=== PATIENT | male | born 1940 | race Caucasian/White ===

== ENCOUNTER 2019-06-24 10:01 | Inpatient (IN) | payer MEDICARE ==
--- NOTE | 2019-06-24 10:30 | ER Document Report ---
ED General - General Stated Complaint: WEAKNESS Time Seen by Provider: 06/24/19 10:06 Primary Care Provider: PADMINI MAYS MD [Primary Care Provider] - Follow up as needed Information source: Patient, Relative Notes: HPI: 79-year-old male on Coumadin who supposedly got up to use the bathroom around 1 AM this morning and had an unwitnessed fall. Supposedly when the patient woke up he was having some difficulty ambulating and responding a little less than baseline. Possibly slurred speech. No focal one-sided weakness or numbness. Patient himself denies any pain. Patient is on Coumadin secondary to atrial fibrillation. Family is unsure of the primary care physician or other medications. ROS: See HPI All other review of systems reviewed and otherwise negative Reviewed vital signs and nursing note as charted by RN. PHYSICAL EXAM: CONSTITUTIONAL: Alert; answers slowly but does not know the year, the month, and the president. Family states that he has not mentating in his normal speed HEAD: Normocephalic; atraumatic EYES: PERRL; full extraocular range of motion; conjunctivae clear, sclerae non- icteric ENT: Normal nose; no rhinorrhea; moist mucous membranes; pharynx without lesions noted NECK: Supple without meningismus; no carotid bruit; non-tender CARD: Irregularly irregular; no murmurs; symmetric distal pulses RESP: Normal chest excursion without splinting or tachypnea; breath sounds clear and equal bilaterally; no tenderness to anterior posterior chest wall palpation; no wheezes, no rhonchi, no rales ABD/GI: Normal bowel sounds; non-distended; soft, non-tender; no palpable o rganomegaly or masses BACK: The back appears normal and is non-tender to palpation EXT: Normal ROM in all joints; small abrasion/laceration to the dorsal aspect of the right forearm with some mild swelling. No tenderness to the hand, wrist, elbow, or humerus SKIN: No acute lesions noted NEURO: CN 2-12 intact; 5/5 bilateral upper extremity strength; patient appears to have 3 out of 5 strength to the right lower extremity with 5 out of 5 strength to the left lower extremity; VAN negative - Related Data Allergies/Adverse Reactions: No Known Drug Allergies Allergy (Mild, Verified 01/29/13 10:23) Past Medical History - Social History Smoking Status: Unknown if Ever Smoked Family History: Reviewed & Not Pertinent - Past Medical History Cardiac Medical History: Reports: Hx Hypertension Denies: Hx Coronary Artery Disease Pulmonary Medical History: Denies: Hx Asthma, Hx Bronchitis, Hx COPD, Hx Pneumonia Neurological Medical History: Denies: Hx Cerebrovascular Accident, Hx Seizures Musculoskeletal Medical History: Denies Hx Arthritis - Immunizations Hx Diphtheria, Pertussis, Tetanus Vaccination: Yes Course - Re-evaluation Re-evalutation: 06/24/19 10:29 Given the history and physical examination, on Coumadin, patient was expedited directly to CT scan of the head and cervical spine. EKG, laboratory work, coagulation profile, have been sent. Van score is negative. Onset of symptomatology last known well at around 1 AM. I do not believe that the patient is a TPA candidate for multiple reasons including anticoagulation and the time course of illness. I do not believe CTA of the head and neck are appropriate given the VAN negative state. 06/24/19 10:35 CT scan of the head shows no obvious acute bleed. 06/24/19 10:45 EKG shows heart of 96, atrial fibrillation, left axis deviation, LVH, no ST elevation or depression 06/24/19 12:07 Labs otherwise as recorded. No change in exam. We cleaned and dressed the cathy ent's right forearm. No laceration present. No fracture of the forearm. Patient will be admitted to the hospitalist service. I have ordered an MRI at the hospitalist request. - Laboratory Result Diagrams: 06/24/19 10:20 06/24/19 10:20 Laboratory results interpreted by me: 06/24/19 06/24/19 06/24/19 10:20 10:20 10:20 Hgb 11.7 L Hct 36.4 L MCV 76 L MCH 24.3 L RDW 16.2 H Plt Count 148 L Seg Neuts % (Manual) 94 H Lymphocytes % (Manual) 4 L Monocytes % (Manual) 2 L Abs Lymphs (Manual) 0.3 L PT 28.7 H Glucose 118 H Discharge - Discharge Clinical Impression: Right leg weakness Altered mental status, unspecified Qualifiers: Altered mental status type: unspecified Qualified Code(s): R41.82 - Altered mental status, unspecified Accidental fall Qualifiers: Encounter type: initial encounter Qualified Code(s): W19.XXXA - Unspecified f all, initial encounter Condition: Fair Disposition: ADMITTED OBSERVATION Admitting Provider: Jones (Hospitalist) Unit Admitted: Telemetry Referrals: PADMINI MAYS MD [Primary Care Provider] - Follow up as needed
--- NOTE | 2019-06-24 10:33 | RADIOLOGY REPORT (SQ) ---
EXAM DESCRIPTION: CT HEAD WITHOUT COMPLETED DATE/TIME: 06/24/2019 10:24 am REASON FOR STUDY: 8; fall on blood thinners COMPARISON: None. TECHNIQUE: Axial images acquired through the brain without intravenous contrast. Images reviewed wi th bone, brain and subdural windows. Additional sagittal and coronal reconstructions were generated. Images stored on PACS. All CT scanners at this facility use dose modulation, iterative reconstruction, and/or weight based d osing when appropriate to reduce radiation dose to as low as reasonably achievable (ALARA). [facility]: Dose Right [facility]: CareDose [facility]: Dose Right [facility]: Teradose 4D [facility]: Smart Mobii RADIATION DOSE: CT Rad equipment meets quality standard of care and radiation dose reduction techniq ues were employed. CTDIvol: 53.2 mGy. DLP: 1044 mGy-cm.mGy. LIMITATIONS: None. FINDINGS: VENTRICLES: Prominent. CEREBRUM: No masses. No hemorrhage. No midline shift. Areas of low density in the white matter mos t likely due to chronic micro-vascular ischemic change. No evidence for acute infarction. CEREBELLUM: No masses. No hemorrhage. No alteration of density. No evidence for acute infarction. EXTRAAXIAL SPACES: Age-related involutional change. No fluid collections. No masses. ORBITS AND GLOBE: No intra- or extraconal masses. Normal contour of globe without masses. CALVARIUM: No fracture. PARANASAL SINUSES: No fluid or mucosal thickening. SOFT TISSUES: No mass or hematoma. OTHER: No other significant finding. IMPRESSION: CHRONIC CHANGES OF ATROPHY AND MICROVASCULAR ISCHEMIA. NO ACUTE PROCESS. EVIDENCE OF ACUTE STROKE: NO. TECHNICAL DOCUMENTATION: JOB ID: [id number] Quality ID # [id number]: Final reports with documentation of one or more dose reduction techniques (e.g., Au tomated exposure control, adjustment of the mA and/or kV according to patient size, use of iterative reconstruction technique) 2010 [employer]- All Rights Reserved Reading location - IP/workstation name: [email or web address]
--- NOTE | 2019-06-24 10:35 | RADIOLOGY REPORT (SQ) ---
EXAM DESCRIPTION: CT CERVICAL SPINE WITHOUT COMPLETED DATE/TIME: 06/24/2019 10:24 am REASON FOR STUDY: 8; fall COMPARISON: None. TECHNIQUE: Axial images acquired through the cervical spine without intravenous contrast. Images re viewed with lung, soft tissue and bone windows. Reconstructed coronal and sagittal MPR images review ed. Images stored on PACS. All CT scanners at this facility use dose modulation, iterative reconstruction, and/or weight based d osing when appropriate to reduce radiation dose to as low as reasonably achievable (ALARA). [facility]: Dose Right [facility]: CareDose [facility]: Dose Right [facility]: Teradose 4D [facility]: Smart VBOX RADIATION DOSE: CT Rad equipment meets quality standard of care and radiation dose reduction techniq ues were employed. CTDIvol: 19.4 mGy. DLP: 384 mGy-cm. mGy. LIMITATIONS: None. FINDINGS: ALIGNMENT: Anatomic. MINERALIZATION: Normal. VERTEBRAL BODIES: No fractures or dislocation. DISCS: Multilevel disc space narrowing with osteophytes. FACETS, LATERAL MASSES, POSTERIOR ELEMENTS: Facet arthropathy. No fractures. No dislocation. No ac [place]ark[place] findings. HARDWARE: None in the spine. VISUALIZED RIBS: No fractures. LUNG APICES AND SOFT TISSUES: No significant or acute findings. OTHER: No other significant finding. IMPRESSION: CHRONIC DEGENERATIVE CHANGES. NO ACUTE FINDINGS. TECHNICAL DOCUMENTATION: JOB ID: [id number] Quality ID # [id number]: Final reports with documentation of one or more dose reduction techniques (e.g., Au tomated exposure control, adjustment of the mA and/or kV according to patient size, use of iterative reconstruction technique) 2010 [employer]- All Rights Reserved Reading location - IP/workstation name: [email or web address]
[2019-06-24 10:43] LABS: HEMATOCRIT 36.4 % (37.9-51.0); HEMOGLOBIN 11.7 g/dL (13.5-17.0); MEAN CORPUSCULAR HEMOGLOBIN 24.3 pg (27.0-33.4); MEAN CORPUSCULAR HGB CONC 32.2 g/dL (32.0-36.0); MEAN CORPUSCULAR VOLUME 76 fl (80-97); PLATELET COUNT 148 10^3/uL (150-450); RED BLOOD COUNT 4.82 10^6/uL (4.35-5.55); RED CELL DISTRIBUTION WIDTH 16.2 % (11.5-14.0); WHITE BLOOD COUNT 8.7 10^3/uL (4.0-10.5)
[2019-06-24 10:58] LABS: ALANINE AMINOTRANSFERASE 28 U/L (21-72); ALBUMIN 4.3 g/dL (3.5-5.0); ALKALINE PHOSPHATASE 63 U/L (38-126); ANION GAP 8 (5-19); ASPARTATE AMINO TRANSFERASE 38 U/L (17-59); BILIRUBIN,DIRECT 0.2 mg/dL (0.0-0.4); BILIRUBIN,TOTAL 0.8 mg/dL (0.2-1.3); BLOOD UREA NITROGEN 14 mg/dL (7-20); CALCIUM 9.3 mg/dL (8.4-10.2); CARBON DIOXIDE 30 mmol/L (22-30); CHLORIDE 102 mmol/L (98-107); GLUCOSE 118 mg/dL (75-110); POTASSIUM 4.1 mmol/L (3.6-5.0); TOTAL PROTEIN 6.9 g/dL (6.3-8.2)
[2019-06-24 11:04] LABS: ABSOLUTE LYMPHOCYTES# (MANUAL) 0.3 10^3/uL (0.5-4.7); ABSOLUTE MONOCYTES # (MANUAL) 0.2 10^3/uL (0.1-1.4); BASOPHILS % (MANUAL) 0 % (0-2); EOSINOPHILS % (MANUAL) 0 % (0-6); LYMPHOCYTES % (MANUAL) 4 % (13-45); MONOCYTES % (MANUAL) 2 % (3-13); SEGMENTED NEUTROPHILS % (MAN) 94 % (42-78); TOTAL CELLS COUNTED 100
[2019-06-24 11:05] LABS: ANISOCYTOSIS 1+; HYPOCHROMASIA 1+; OVALOCYTES 1+; PLATELET COMMENT DECREASED; POIKILOCYTOSIS 1+
[2019-06-24 11:21] LABS: INTERNATIONAL RATION (INR) 2.64; PROTHROMBIN TIME 28.7 SEC (11.4-15.4)
[2019-06-24] MEDS ORDERED: DIPH/PERTUSS(ACELL)/TETANUS VAC/PF 0.5 ML SYR (>=10YO) IM ONE (11:24)
--- NOTE | 2019-06-24 11:53 | RADIOLOGY REPORT (SQ) ---
EXAM DESCRIPTION: FOREARM RIGHT COMPLETED DATE/TIME: 06/24/2019 11:42 am REASON FOR STUDY: 8;Fall; right arm pain COMPARISON: None. NUMBER OF VIEWS: Two views. TECHNIQUE: Two radiographic images acquired of the right forearm, including elbow and wrist in at le ast one projection. LIMITATIONS: None. FINDINGS: MINERALIZATION: Osteopenia. BONES: No mid forearm fracture. There is a possible nondisplaced fracture of the distal radius. SOFT TISSUES: No obvious swelling or foreign body. OTHER: No other significant finding. IMPRESSION: Possible nondisplaced fracture of the distal radius. Consider radiographs of the wrist. TECHNICAL DOCUMENTATION: JOB ID: [id number] [employer]- All Rights Reserved Reading location - IP/workstation name: [email or web address]
[2019-06-24] MEDS ORDERED: ACETAMINOPHEN 325 MG TABLET PO PRN (12:55)
[2019-06-24] MEDS ORDERED: ONDANSETRON HCL INJ/PF 4 MG/2 ML SDV IV PRN (12:55)
--- NOTE | 2019-06-24 13:15 | RADIOLOGY REPORT (SQ) ---
EXAM DESCRIPTION: WRIST RIGHT 3 VIEWS COMPLETED DATE/TIME: 06/24/2019 1:04 pm REASON FOR STUDY: 8; fall COMPARISON: None. NUMBER OF VIEWS: Three views. TECHNIQUE: AP, lateral, and oblique radiographic images acquired of the right wrist. LIMITATIONS: None. FINDINGS: MINERALIZATION: Normal. BONES: Marked degenerative change at the 1st carpal metacarpal joint and degenerative change at the 1 st radiocarpal joint. Otherwise, no acute fracture or bony abnormality identified. SOFT TISSUES: No soft tissue swelling. No foreign body. OTHER: Vascular calcification. IMPRESSION: Degenerative arthritis of the right wrist. TECHNICAL DOCUMENTATION: JOB ID: [id number] SC-69 2010 [employer]- All Rights Reserved Reading location - IP/workstation name: [email or web address]
--- NOTE | 2019-06-24 13:30 | PDOC H&P ---
History of Present Illness Admission Date/PCP: 06/24/19 12:42 PADMINI MAYS Patient complains of: History of fall with altered mental status History of Present Illness: WILLIAMS COX is a 79 year old male with history of atrial fibrillation on Coumadin, hypertension brought in by EMS with history of fall at home. As per the family members patient was found on the floor around 7:30 AM. Family members did not know how long he is on the floor. Patient is alert and awake at that time. But unable to stand up. EMS was called. Initially in the ER he is okay but later on he was getting more confused and agitated unable to give his data but unable to give his name unable to tell the location. Work-up was done INR is 2.6, CT head was negative for acute changes. Found to have questionable nondisplaced right distal radius fracture was found on initial x-rays follow-up x-ray of the right wrist shows no fractures. Patient is full code. Family is okay for the patient to stay in the hospital for further management. Past Medical History Cardiac Medical History: Reports: Hypertension Denies: Coronary Artery Disease Pulmonary Medical History: Denies: Asthma, Bronchitis, Chronic Obstructive Pulmonary Disease (COPD), Pneumonia Neurological Medical History: Denies: Seizures Musculoskeltal Medical History: Denies: Arthritis Hematology: Denies: Anemia Past Surgical History Past Surgical History: Reports: Other - Hernia repair Social History Smoking Status: Unknown if Ever Smoked - Advance Directive Resuscitation Status: Full Code Surrogate healthcare decision maker:: Patient's son has the power of vmware consultant. Family History Family History: Reviewed & Not Pertinent Parental Family History Reviewed: Yes - Other with her history of cancer unknown. Children Family History Reviewed: Yes Sibling(s) Family History Reviewed.: Yes Medication/Allergy Home Medications: Atenolol [Tenormin 50 Mg Tablet] 50 mg PO DAILY 01/29/13 Digoxin [Lanoxin 0.25 Mg Tablet] 0.25 mg PO DAILY 01/29/13 Ezetimibe/Simvastatin [Vytorin 10-40 Mg Tablet] 1 each PO DAILY 01/29/13 Furosemide [Lasix 40 mg Tablet] 40 mg PO QAM 01/29/13 Lisinopril [Prinivil 20 mg Tablet] 20 mg PO DAILY 01/29/13 Potassium Chloride 10 meq PO DAILY 01/29/13 Warfarin Sodium [Coumadin 5 Mg Tablet] 5 mg PO 01/29/13 Warfarin Sodium [Coumadin 7.5 mg Tablet] 7.5 mg PO 01/29/13 Allergies/Adverse Reactions: No Known Drug Allergies Allergy (Mild, Verified 01/29/13 10:23) Review of Systems Constitutional: ABSENT: fever(s), headache(s) Ears: ABSENT: other Cardiovascular: ABSENT: chest pain, dyspnea on exertion, edema, orthropnea, palpitations Respiratory: ABSENT: cough, hemoptysis Gastrointestinal: ABSENT: abdominal pain, constipation, diarrhea, hematemesis, hematochezia, nausea, vomiting Neurological: PRESENT: confusion, weakness Psychiatric: ABSENT: anxiety, depression, homidical ideation, suicidal ideation Hematologic/Lymphatic: ABSENT: easy bleeding, easy bruising Physical Exam General appearance: PRESENT: no acute distress, cooperative Head exam: PRESENT: atraumatic Eye exam: PRESENT: PERRLA Mouth exam: PRESENT: moist, tongue midline Teeth exam: PRESENT: poor dentation Neck exam: ABSENT: carotid bruit, JVD, lymphadenopathy, thyromegaly Respiratory exam: PRESENT: decreased breath sounds Cardiovascular exam: PRESENT: irregular rhythm, tachycardia GI/Abdominal exam: PRESENT: normal bowel sounds, soft. ABSENT: distended, guarding, mass, organolmegaly, rebound, tenderness Rectal exam: PRESENT: deferred Extremities exam: PRESENT: full ROM. ABSENT: calf tenderness, clubbing, pedal edema Neurological exam: PRESENT: alert, awake, oriented to person, oriented to place, oriented to time, oriented to situation, CN II-XII grossly intact. ABSENT: motor sensory deficit Psychiatric exam: PRESENT: appropriate affect, normal mood. ABSENT: homicidal ideation, suicidal ideation Results Laboratory Results: 06/24/19 10:20 06/24/19 10:20 06/24/19 06/24/19 10:20 10:20 WBC 8.7 RBC 4.82 Hgb 11.7 L Hct 36.4 L MCV 76 L MCH 24.3 L MCHC 32.2 RDW 16.2 H Plt Count 148 L Seg Neutrophils % Not Reportable Lymphocytes % Not Reportable Monocytes % Not Reportable Eosinophils % Not Reportable Basophils % Not Reportable Absolute Neutrophils Not Reportable Absolute Lymphocytes Not Reportable Absolute Monocytes Not Reportable Absolute Eosinophils Not Reportable Absolute Basophils Not Reportable Sodium 140.3 Potassium 4.1 Chloride 102 Carbon Dioxide 30 Anion Gap 8 BUN 14 Creatinine 0.85 Est GFR ( Amer) > 60 Est GFR (Non-Af Amer) > 60 Glucose 118 H Calcium 9.3 Total Bilirubin 0.8 AST 38 ALT 28 Alkaline Phosphatase 63 Total Protein 6.9 Albumin 4.3 06/24/19 10:20 Troponin I 0.084 Impressions: Cervical Spine CT 06/24/19 10:07 IMPRESSION: CHRONIC DEGENERATIVE CHANGES. NO ACUTE FINDINGS. Head CT 06/24/19 10:07 IMPRESSION: CHRONIC CHANGES OF ATROPHY AND MICROVASCULAR ISCHEMIA. NO ACUTE PROCESS. EVIDENCE OF ACUTE STROKE: NO. Forearm X-Ray 06/24/19 11:24 IMPRESSION: Possible nondisplaced fracture of the distal radius. Consider radiographs of the wrist. Wrist X-Ray 06/24/19 12:23 IMPRESSION: Degenerative arthritis of the right wrist. Assessment and Plan - Diagnosis (1) Altered mental status, unspecified Qualifiers: Altered mental status type: unspecified Qualified Code(s): R41.82 - Altered mental status, unspecified Is this a current diagnosis for this admission?: Yes Plan: 06/24/[id number]-old male admitted for altered mental status and a fall possible stroke. Is going to be [facility] stroke core measures core measures implemented. Aspiration fall seizure precautions are requested. Swallowing evaluation will be done. CT head was negative for acute changes. CT of the neck and head and MRI of the brain is going to be requested. GI prophylaxis started. Patient is on Coumadin at home INR is 2.6 which was resumed during this hospital stay. PT consult OT consult is going to be requested. (2) Accidental fall Qualifiers: Encounter type: initial encounter Qualified Code(s): W19.XXXA - Unspecified fall, initial encounter Is this a current diagnosis for this admission?: Yes Plan: 06/24/2019-patient admitted with fall. And is unable to tell exactly what happened. We are going to do the CK levels to see any rhabdomyolysis. CT head was negative. On x-ray is questionable broken distal right radius. Follow-up right wrist x-rays did not show any fracture. (3) HTN (hypertension) Is this a current diagnosis for this admission?: No Plan: 06/24/2019-patient came in with hypertensive urgency. With elevated blood pressures blood pressure is more than 180. Started on IV hydralazine 10 mg every 4 PRN for systolic blood pressure more than 160 and continue the lisinopril. (4) Atrial fibrillation Is this a current diagnosis for this admission?: No Plan: 06/24/2019-patient has history of paroxysmal atrial fibrillation on digoxin and Coumadin he is still in atrial fibrillation with rate controlled. Plan is to continue the home medications. - Time Time Spent with patient: 25-34 minutes Medications reviewed and adjusted accordingly: Yes Anticipated discharge: SNF
[2019-06-24 13:38] LABS: PROTHROMBIN TIME 24.8 SEC (11.4-15.4)
[2019-06-24 13:56] LABS: DIGOXIN 1.25 ng/mL (0.8-2.0)
[2019-06-24 14:05] LABS: CREATINE KINASE MB 3.5 ng/mL (<4.55)
[2019-06-24 14:10] LABS: TROPONIN I 0.122 ng/mL
--- NOTE | 2019-06-24 14:19 | RADIOLOGY REPORT (SQ) ---
EXAM DESCRIPTION: MRI HEAD WITHOUT COMPLETED DATE/TIME: 06/24/2019 2:06 pm REASON FOR STUDY: 8; CVA? COMPARISON: CT scan same date TECHNIQUE: Multiplanar imaging includes non-contrasted T1, T2, FLAIR, and diffusion with ADC map seq uences. Images stored on PACS. LIMITATIONS: None. FINDINGS: ANATOMY: No anomalies. Normal vascular flow voids. Pituitary fossa normal. CSF SPACES: Atrophy induced prominence of ventricles and CSF spaces. CEREBRUM: High signal intensity lesions scattered throughout the white matter on FLAIR imaging with d istribution suggesting micro-vascular ischemic changes. No evidence of hemorrhage, mass, or extraaxi al fluid collection. POSTERIOR FOSSA: No signal alteration. No hemorrhage. No edema, masses or mass effect. Internal redd tory canals, cerebello-pontine angles, mastoids normal. DIFFUSION IMAGING: Positive for restricted diffusion in the internal capsule on the left. ORBITS: No masses. Globes normal. PARANASAL SINUSES: No fluid levels. Mucosa normal. OTHER: No other significant finding. IMPRESSION: ATROPHY AND CHRONIC MICRO-VASCULAR ISCHEMIC CHANGES. Positive for restricted diffusion internal capsule on the left. Acute infarction. EVIDENCE OF ACUTE STROKE: YES. LEFT MCA. COMMENT: The findings were sent to the Radiology Results Communication Center at 14:13 on 06/24/2019 to be communicated to a licensed caregiver. TECHNICAL DOCUMENTATION: JOB ID: [id number] [employer]- All Rights Reserved Reading location - IP/workstation name: [email or web address]
--- NOTE | 2019-06-24 14:58 | RADIOLOGY REPORT (SQ) ---
EXAM DESCRIPTION: CTA NECK COMPLETED DATE/TIME: 06/24/2019 2:41 pm REASON FOR STUDY: stroke COMPARISON: None. TECHNIQUE: Axial dynamic scanning technique with dynamic contrast enhancement through the extra-aircraft engine dismantler nial carotid and vertebral arteries. Multiplanar reconstruction. 3-D MIPS and Volume-rendered imag es acquired at the workstation and saved to PACS. Images are reviewed in soft tissue, bone, lung w indows. All CT scanners at this facility use dose modulation, iterative reconstruction, and/or weight based d osing when appropriate to reduce radiation dose to as low as reasonably achievable (ALARA). [facility]: Dose Right [facility]: CareDose [facility]: Dose Right [facility]: Teradose 4D [facility]: [place] CONTRAST TYPE AND DOSE: contrast/concentration: Isovue 350.00 mg/ml; Total Contrast Delivered: 70.0 ml; Total Saline Delivered: 75.0 ml RENAL FUNCTION: GFR > 60. LIMITATIONS: None. FINDINGS: AORTIC ARCH: Normal three-vessel origin. Bilateral subclavian arteries are patent. No d issection. RIGHT CAROTIDS: Patent common, internal and external carotid arteries without suggestion of significa nt stenosis or irregular plaque. Mild calcification. No dissection. RIGHT VERTEBRAL: Patent. No dissection. LEFT CAROTIDS: Patent common, internal and external carotid arteries without suggestion of significan t stenosis or irregular plaque. Mild calcification. No dissection. LEFT VERTEBRAL: Patent. No dissection. OTHER: No other significant finding. OTHER: 3-D reconstructions confirm findings. IMPRESSION: No evidence of carotid artery stenosis or dissection. COMMENT: Quality ID #[id number]: Measurements of distal internal carotid diameter were used as the denomina tor for stenosis measurement. TECHNICAL DOCUMENTATION: JOB ID: [id number] Quality ID # 436: Final reports with documentation of one or more dose reduction techniques (e.g., Au tomated exposure control, adjustment of the mA and/or kV according to patient size, use of iterative reconstruction technique) 2010 [employer]- All Rights Reserved Reading location - IP/workstation name: [email or web address]
--- NOTE | 2019-06-24 15:07 | RADIOLOGY REPORT (SQ) ---
EXAM DESCRIPTION: CTA HEAD COMPLETED DATE/TIME: 06/24/2019 2:41 pm REASON FOR STUDY: stroke COMPARISON: None. TECHNIQUE: Post IV contrast scanning, thin section axial imaging through the brain to evaluate the a rterial structures. Source and MIP images are saved and reviewed on PACS. Advanced 3D imaging as volume-rendering, MIPs, SSD performed? yes All CT scanners at this facility use dose modulation, iterative reconstruction, and/or weight based d osing when appropriate to reduce radiation dose to as low as reasonably achievable (ALARA). [facility]: Dose Right [facility]: CareDose [facility]: Dose Right [facility]: Teradose 4D [facility]: [employer] CONTRAST TYPE AND DOSE: I Omnipaque 350. 75 mL. RENAL FUNCTION: Creatinine: 0.85. RADIATION DOSE: 522.06 LIMITATIONS: None. FINDINGS: [place]: The anterior, middle, posterior cerebral arteries are all patent. Hypop lastic left A1 segment. POSTERIOR CIRCULATION: The distal vertebral arteries are patent as is the basilar artery. No aneurysm . Dominant left vertebral artery. BRAIN: No gross enhancing lesions as visualized. The superior cerebral hemispheres are not included in the field of view. BONES: Intact as visualized. SINUSES: Mucosal thickening noted within the maxillary sinuses consistent with chronic sinusitis. OTHER: No other significant finding. IMPRESSION: NO CTA EVIDENCE OF STENOSIS OR ANEURYSM OF THE [place]. TECHNICAL DOCUMENTATION: JOB ID: [id number] SC-69 Quality ID # [id number]: Final reports with documentation of one or more dose reduction techniques (e.g., Au tomated exposure control, adjustment of the mA and/or kV according to patient size, use of iterative reconstruction technique) 2010 [employer]- All Rights Reserved Reading location - IP/workstation name: [email or web address]
[2019-06-24] MEDS: LISINOPRIL 10 MG TABLET PO SCH (15:52)
[2019-06-24] MEDS: ATENOLOL 50 MG TABLET PO SCH (15:52)
[2019-06-24] MEDS: HYDRALAZINE HCL INJ/PF 20 MG/1 ML SDV IV PRN (17:11)
[2019-06-24] MEDS: PANTOPRAZOLE SODIUM 40 MG TABLET.DR PO SCH (17:17)
[2019-06-24] MEDS: FUROSEMIDE 20 MG TABLET PO SCH (17:17)
[2019-06-24 19:27] LABS: CREATINE KINASE MB 3.63 ng/mL (<4.55)
[2019-06-24 19:38] LABS: TROPONIN I 0.122 ng/mL
[2019-06-24] MEDS: FAMOTIDINE 20 MG TABLET PO SCH (21:26)
[2019-06-24] MEDS: SIMVASTATIN 10 MG TABLET PO SCH (21:26)
--- NOTE | 2019-06-24 21:52 | EKG REPORT ---
SEVERITY:- ABNORMAL ECG - ATRIAL FIBRILLATION BORDERLINE LEFT AXIS DEVIATION CONSIDER ANTEROSEPTAL INFARCT BORDERLINE PROLONGED QT INTERVAL : Confirmed by: Gerhard Alfredo 24-Jun-2019 21:51:34
[2019-06-24] MEDS ORDERED: WARFARIN SODIUM 5 MG TABLET PO SCH (22:00)
[2019-06-25] MEDS: HYDRALAZINE HCL INJ/PF 20 MG/1 ML SDV IV PRN ×3 (01:21→19:47)
[2019-06-25] MEDS ORDERED: HALOPERIDOL LACTATE INJ 5 MG/1 ML VIAL IV ONE (01:30)
[2019-06-25 01:39] LABS: CREATINE KINASE MB 3.5 ng/mL (<4.55); TROPONIN I 0.148 ng/mL
[2019-06-25] MEDS: PANTOPRAZOLE SODIUM 40 MG TABLET.DR PO SCH ×2 (05:32→17:53)
--- NOTE | 2019-06-25 07:01 | EKG REPORT ---
SEVERITY:- ABNORMAL ECG - ATRIAL FIBRILLATION LEFT AXIS DEVIATION CONSIDER ANTEROSEPTAL INFARCT : Confirmed by: Gerhard Alfredo 25-Jun-2019 07:00:37
[2019-06-25 07:20] LABS: INTERNATIONAL RATION (INR) 1.73; PROTHROMBIN TIME 20.5 SEC (11.4-15.4)
[2019-06-25 07:23] LABS: HEMATOCRIT 38.8 % (37.9-51.0); HEMOGLOBIN 12.6 g/dL (13.5-17.0); MEAN CORPUSCULAR HEMOGLOBIN 24.3 pg (27.0-33.4); MEAN CORPUSCULAR HGB CONC 32.4 g/dL (32.0-36.0); MEAN CORPUSCULAR VOLUME 75 fl (80-97); PLATELET COUNT 174 10^3/uL (150-450); RED BLOOD COUNT 5.18 10^6/uL (4.35-5.55); RED CELL DISTRIBUTION WIDTH 16.5 % (11.5-14.0); WHITE BLOOD COUNT 12.3 10^3/uL (4.0-10.5)
[2019-06-25 07:33] LABS: ALANINE AMINOTRANSFERASE 24 U/L (21-72); ALBUMIN 4.3 g/dL (3.5-5.0); ALKALINE PHOSPHATASE 66 U/L (38-126); ANION GAP 12 (5-19); ASPARTATE AMINO TRANSFERASE 37 U/L (17-59); BILIRUBIN,DIRECT 0.3 mg/dL (0.0-0.4); BILIRUBIN,TOTAL 1.3 mg/dL (0.2-1.3); BLOOD UREA NITROGEN 17 mg/dL (7-20); CALCIUM 9.3 mg/dL (8.4-10.2); CARBON DIOXIDE 27 mmol/L (22-30); CHLORIDE 103 mmol/L (98-107); GLUCOSE 145 mg/dL (75-110); POTASSIUM 3.9 mmol/L (3.6-5.0); TRIGLYCERIDES 130 mg/dL (<150)
[2019-06-25 07:43] LABS: DIRECT LDL 62 mg/dL (<100)
[2019-06-25 08:01] LABS: ABSOLUTE LYMPHOCYTES# (MANUAL) 0.7 10^3/uL (0.5-4.7); ABSOLUTE MONOCYTES # (MANUAL) 0.5 10^3/uL (0.1-1.4); BASOPHILS % (MANUAL) 0 % (0-2); EOSINOPHILS % (MANUAL) 0 % (0-6); LYMPHOCYTES % (MANUAL) 6 % (13-45); MONOCYTES % (MANUAL) 4 % (3-13); SEGMENTED NEUTROPHILS % (MAN) 90 % (42-78); TOTAL CELLS COUNTED 100
[2019-06-25 08:02] LABS: ANISOCYTOSIS 1+; HYPOCHROMASIA SLIGHT; OVALOCYTES 1+; PLATELET COMMENT ADEQUATE; POIKILOCYTOSIS 1+; TEAR DROP CELLS SLIGHT
--- NOTE | 2019-06-25 10:56 | PDOC PROGRESS REPORT ---
Subjective Progress Note for:: 06/25/19 Subjective:: 79 year old male with history of atrial fibrillation on Coumadin, hypertension brought in by EMS with history of fall at home. As per the family members patient was found on the floor around 7:30 AM. Family members did not know how long he is on the floor. Patient is alert and awake at that time. But unable to stand up. EMS was called. Initially in the ER he is okay but later on he was getting more confused and agitated unable to give his data but unable to give his name unable to tell the location. Work-up was done INR is 2.6, CT head was negative for acute changes. Found to have questionable nondisplaced right distal radius fracture was found on initial x-rays follow-up x-ray of the right wrist shows no fractures. Patient is full code. Family is okay for the patient to stay in the hospital for further management. 06/25/[id number]-iunc-old male admitted with CVA. Involving the left MCA territory. He has a problem in the right side of the body. Able to work with physical therapy without any problem. Patient is presently on thin liquids and nectar thickened diet. No acute events in the last 24 hours afebrile. Reason For Visit: STROKE Physical Exam Vital Signs: Temp Pulse Resp BP Pulse Ox 98.3 F 74 22 H 167/81 H 100 06/25/19 03:59 06/25/19 07:00 06/25/19 04:00 06/25/19 04:00 06/25/19 04:00 Intake & Output 06/24/19 06/25/19 06/26/19 06:59 06:59 06:59 Intake Total 0 Balance 0 Weight 88.4 kg General appearance: PRESENT: no acute distress Head exam: PRESENT: atraumatic Eye exam: PRESENT: PERRLA Mouth exam: PRESENT: moist, tongue midline Teeth exam: PRESENT: poor dentation Neck exam: ABSENT: carotid bruit, JVD, lymphadenopathy, thyromegaly Respiratory exam: PRESENT: clear to auscultation gurpreet. ABSENT: rales, rhonchi, w heezes Cardiovascular exam: PRESENT: RRR. ABSENT: diastolic murmur, rubs, systolic murmur Pulses: PRESENT: normal dorsalis pedis pul GI/Abdominal exam: PRESENT: normal bowel sounds, soft. ABSENT: distended, guarding, mass, organolmegaly, rebound, tenderness Rectal exam: PRESENT: deferred Extremities exam: PRESENT: full ROM. ABSENT: calf tenderness, clubbing, pedal edema Neurological exam: PRESENT: alert, awake, other - On examination noticed to have flattening of the right forehead and mild weakness in the right arm. And he has a difficulty in swallowing. Psychiatric exam: PRESENT: appropriate affect, normal mood. ABSENT: homicidal ideation, suicidal ideation Results Laboratory Results: 06/25/19 06:15 06/25/19 06:15 06/24/19 06/24/19 06/25/19 10:20 10:20 06:15 WBC 8.7 12.3 H RBC 4.82 5.18 Hgb 11.7 L 12.6 L Hct 36.4 L 38.8 MCV 76 L 75 L MCH 24.3 L 24.3 L MCHC 32.2 32.4 RDW 16.2 H 16.5 H Plt Count 148 L 174 Seg Neutrophils % Not Reportable Not Reportable Lymphocytes % Not Reportable Not Reportable Monocytes % Not Reportable Not Reportable Eosinophils % Not Reportable Not Reportable Basophils % Not Reportable Not Reportable Absolute Neutrophils Not Reportable Not Reportable Absolute Lymphocytes Not Reportable Not Reportable Absolute Monocytes Not Reportable Not Reportable Absolute Eosinophils Not Reportable Not Reportable Absolute Basophils Not Reportable Not Reportable Sodium 140.3 Potassium 4.1 Chloride 102 Carbon Dioxide 30 Anion Gap 8 BUN 14 Creatinine 0.85 Est GFR ( Amer) > 60 Est GFR (Non-Af Amer) > 60 Glucose 118 H Calcium 9.3 Magnesium Total Bilirubin 0.8 AST 38 ALT 28 Alkaline Phosphatase 63 Total Protein 6.9 Albumin 4.3 Triglycerides Cholesterol LDL Cholesterol Direct VLDL Cholesterol HDL Cholesterol TSH 06/25/19 06/25/19 06:15 06:15 WBC RBC Hgb Hct MCV MCH MCHC RDW Plt Count Seg Neutrophils % Lymphocytes % Monocytes % Eosinophils % Basophils % Absolute Neutrophils Absolute Lymphocytes Absolute Monocytes Absolute Eosinophils Absolute Basophils Sodium 142.2 Potassium 3.9 Chloride 103 Carbon Dioxide 27 Anion Gap 12 BUN 17 Creatinine 1.05 Est GFR ( Amer) > 60 Est GFR (Non-Af Amer) > 60 Glucose 145 H Calcium 9.3 Magnesium 2.1 Total Bilirubin 1.3 AST 37 ALT 24 Alkaline Phosphatase 66 Total Protein 7.0 Albumin 4.3 Triglycerides 130 Cholesterol 122.20 LDL Cholesterol Direct 62 VLDL Cholesterol 26.0 HDL Cholesterol 39 L TSH 1.78 06/24/19 06/24/19 06/24/19 10:20 13:24 13:24 Creatine Kinase 174 H CK-MB (CK-2) 3.50 Troponin I 0.084 0.122 NT-Pro-B Natriuret Pep 06/24/19 06/24/19 06/25/19 18:50 18:50 00:58 Creatine Kinase 173 H 233 H CK-MB (CK-2) 3.63 Troponin I 0.122 NT-Pro-B Natriuret Pep 06/25/19 06/25/19 00:58 06:15 Creatine Kinase CK-MB (CK-2) 3.50 Troponin I 0.148 NT-Pro-B Natriuret Pep 7250 H Impressions: Head CTA 06/24/19 00:00 IMPRESSION: NO CTA EVIDENCE OF STENOSIS OR ANEURYSM OF THE [place] OF [place]. Neck CTA 06/24/19 00:00 IMPRESSION: No evidence of carotid artery stenosis or dissection. Cervical Spine CT 06/24/19 10:07 IMPRESSION: CHRONIC DEGENERATIVE CHANGES. NO ACUTE FINDINGS. Head CT 06/24/19 10:07 IMPRESSION: CHRONIC CHANGES OF ATROPHY AND MICROVASCULAR ISCHEMIA. NO ACUTE PROCESS. EVIDENCE OF ACUTE STROKE: NO. Forearm X-Ray 06/24/19 11:24 IMPRESSION: Possible nondisplaced fracture of the distal radius. Consider radiographs of the wrist. Head MRI 06/24/19 12:04 IMPRESSION: ATROPHY AND CHRONIC MICRO-VASCULAR ISCHEMIC CHANGES. Positive for restricted diffusion internal capsule on the left. Acute infarction. EVIDENCE OF ACUTE STROKE: YES. LEFT MCA. Wrist X-Ray 06/24/19 12:23 IMPRESSION: Degenerative arthritis of the right wrist. Assessment and Plan - Diagnosis (1) Altered mental status, unspecified Qualifiers: Altered mental status type: unspecified Qualified Code(s): R41.82 - Altered mental status, unspecified Is this a current diagnosis for this admission?: Yes Plan: 06/24/[id number]-lzwo-old male admitted for altered mental status and a fall possible stroke. Is going to be [facility] stroke core measures core measures implemented. Aspiration fall seizure precautions are requested. Swallowing evaluation will be done. CT head was negative for acute changes. CT of the neck and head and MRI of the brain is going to be requested. GI prophylaxis started. Patient is on Coumadin at home INR is 2.6 which was resumed during this hospital stay. PT consult OT consult is going to be requested. 06/25/[id number]-yiiz-old male admitted with altered mental status found to have a stroke involving the left MCA territory. Physical therapy working with the patient workforce planner on the case. Family wants a rehab placement. Stroke core measures implemented during the hospital stay. (2) Accidental fall Qualifiers: Encounter type: initial encounter Qualified Code(s): W19.XXXA - Unspecified fall, initial encounter Is this a current diagnosis for this admission?: Yes Plan: 06/24/2019-patient admitted with fall. And is unable to tell exactly what happened. We are going to do the CK levels to see any rhabdomyolysis. CT head was negative. On x-ray is questionable broken distal right radius. Follow-up right wrist x-rays did not show any fracture. 06/25/2019-patient admitted with fall aspiration fall seizure precautions are implemented. (3) HTN (hypertension) Is this a current diagnosis for this admission?: No Plan: 06/24/2019-patient came in with hypertensive urgency. With elevated blood pressures blood pressure is more than 180. Started on IV hydralazine 10 mg every 4 PRN for systolic blood pressure more than 160 and continue the lisinopril. 06/25/2019-patient admitted with hypertensive urgency with a systolic blood pressure more than 180 in the emergency room. Started on IV hydralazine 10 mg every 4 PRN for systolic blood pressure more than 160 and her lisinopril was discontinued he is blood pressure today is 167/81. Plan is to continue the present management. (4) Atrial fibrillation Is this a current diagnosis for this admission?: No Plan: 06/24/2019-patient has history of paroxysmal atrial fibrillation on digoxin and Coumadin he is still in atrial fibrillation with rate controlled. Plan is to continue the home medications. 06/25/2019-patient is some has a history of atrial fibrillation heart rate is controlled 84. He is on digoxin and INR is 7.76 to increase Coumadin to 7.5 mg p.o. nightly and check PT/INR on daily basis. - Time Time Spent with patient: 15-24 minutes Medications reviewed and adjusted accordingly: Yes Anticipated discharge: SNF
[2019-06-25] MEDS: ASPIRIN 325 MG TABLET PO SCH (11:37)
[2019-06-25] MEDS: ATENOLOL 50 MG TABLET PO SCH (11:37)
[2019-06-25] MEDS: LISINOPRIL 10 MG TABLET PO SCH (11:37)
[2019-06-25] MEDS: DIGOXIN 0.25 MG TABLET PO SCH (11:38)
[2019-06-25] MEDS: FAMOTIDINE 20 MG TABLET PO SCH ×2 (11:38→21:20)
[2019-06-25] MEDS: FUROSEMIDE 20 MG TABLET PO SCH ×2 (11:38→17:49)
[2019-06-25] MEDS: SIMVASTATIN 10 MG TABLET PO SCH (21:20)
[2019-06-25] MEDS: WARFARIN SODIUM 7.5 MG TABLET PO SCH (21:21)
[2019-06-25] MEDS ORDERED: WARFARIN SODIUM 5 MG TABLET PO SCH (22:00)
[2019-06-26] MEDS: PANTOPRAZOLE SODIUM 40 MG TABLET.DR PO SCH ×3 (05:17→17:05)
[2019-06-26 06:24] LABS: INTERNATIONAL RATION (INR) 1.99; PROTHROMBIN TIME 22.9 SEC (11.4-15.4)
[2019-06-26 08:24] LABS: ALANINE AMINOTRANSFERASE 21 U/L (21-72); ALBUMIN 3.8 g/dL (3.5-5.0); ALKALINE PHOSPHATASE 58 U/L (38-126); ANION GAP 10 (5-19); ASPARTATE AMINO TRANSFERASE 39 U/L (17-59); BILIRUBIN,DIRECT 0.3 mg/dL (0.0-0.4); BILIRUBIN,TOTAL 1.1 mg/dL (0.2-1.3); BLOOD UREA NITROGEN 29 mg/dL (7-20); CALCIUM 9.2 mg/dL (8.4-10.2); CARBON DIOXIDE 28 mmol/L (22-30); CHLORIDE 105 mmol/L (98-107); GLUCOSE 126 mg/dL (75-110); TOTAL PROTEIN 6.5 g/dL (6.3-8.2)
[2019-06-26] MEDS: FUROSEMIDE 20 MG TABLET PO SCH (09:25)
[2019-06-26] MEDS: LISINOPRIL 10 MG TABLET PO SCH (09:25)
[2019-06-26] MEDS: FAMOTIDINE 20 MG TABLET PO SCH ×2 (09:25→22:07)
[2019-06-26] MEDS: DIGOXIN 0.25 MG TABLET PO SCH (09:26)
[2019-06-26] MEDS: ASPIRIN 325 MG TABLET PO SCH (09:26)
[2019-06-26] MEDS: ATENOLOL 50 MG TABLET PO SCH (09:26)
--- NOTE | 2019-06-26 09:57 | PDOC PROGRESS REPORT ---
Subjective Progress Note for:: 06/26/19 Subjective:: 79 year old male with history of atrial fibrillation on Coumadin, hypertension brought in by EMS with history of fall at home. As per the family members patient was found on the floor around 7:30 AM. Family members did not know how long he is on the floor. Patient is alert and awake at that time. But unable to stand up. EMS was called. Initially in the ER he is okay but later on he was getting more confused and agitated unable to give his data but unable to give his name unable to tell the location. Work-up was done INR is 2.6, CT head was negative for acute changes. Found to have questionable nondisplaced right distal radius fracture was found on initial x-rays follow-up x-ray of the right wrist shows no fractures. Patient is full code. Family is okay for the patient to stay in the hospital for further management. 06/25/[id number]-lqwm-old male admitted with CVA. Involving the left MCA territory. He has a problem in the right side of the body. Able to work with physical therapy without any problem. Patient is presently on thin liquids and nectar thickened diet. No acute events in the last 24 hours afebrile. 06/26/[id number]-hlwq-old male admitted with history of stroke involving the left MCA territory he has a problem with swallowing and right-sided weakness. No acute events in the last 24 hours. Waiting for placement. Reason For Visit: STROKE Physical Exam Vital Signs: Temp Pulse Resp BP Pulse Ox 97.8 F 71 20 162/86 H 98 06/26/19 07:16 06/26/19 07:16 06/26/19 07:16 06/26/19 07:16 06/26/19 07:16 Intake & Output 06/25/19 06/26/19 06/27/19 06:59 06:59 06:59 Intake Total 0 473 Balance 0 473 Weight 88.4 kg 87.9 kg General appearance: PRESENT: no acute distress, cooperative Head exam: PRESENT: atraumatic Eye exam: PRESENT: PERRLA Mouth exam: PRESENT: dry mucosa Teeth exam: PRESENT: poor dentation Neck exam: ABSENT: carotid bruit, JVD, lymphadenopathy, thyromegaly Respiratory exam: PRESENT: accessory muscle use Cardiovascular exam: PRESENT: irregular rhythm GI/Abdominal exam: PRESENT: normal bowel sounds, soft. ABSENT: distended, guarding, mass, organolmegaly, rebound, tenderness Rectal exam: PRESENT: deferred Extremities exam: PRESENT: full ROM. ABSENT: calf tenderness, clubbing, pedal edema Neurological exam: PRESENT: alert, awake, other - Patient is alert awake oriented responding to verbal commands. He has right-sided weakness involving the right side of the face and right upper arm and right lower leg. He has also problems with swallowing. Psychiatric exam: PRESENT: appropriate affect, normal mood. ABSENT: homicidal ideation, suicidal ideation Results Laboratory Results: 06/25/19 06:15 06/26/19 05:40 06/26/19 05:40 Sodium 143.0 Potassium 4.0 Chloride 105 Carbon Dioxide 28 Anion Gap 10 BUN 29 H Creatinine 1.45 H Est GFR ( Amer) 57 L Est GFR (Non-Af Amer) 47 L Glucose 126 H Calcium 9.2 Magnesium 2.3 Total Bilirubin 1.1 AST 39 ALT 21 Alkaline Phosphatase 58 Total Protein 6.5 Albumin 3.8 06/24/19 06/24/19 06/24/19 10:20 13:24 13:24 Creatine Kinase 174 H CK-MB (CK-2) 3.50 Troponin I 0.084 0.122 NT-Pro-B Natriuret Pep 06/24/19 06/24/19 06/25/19 18:50 18:50 00:58 Creatine Kinase 173 H 233 H CK-MB (CK-2) 3.63 Troponin I 0.122 NT-Pro-B Natriuret Pep 06/25/19 06/25/19 00:58 06:15 Creatine Kinase CK-MB (CK-2) 3.50 Troponin I 0.148 NT-Pro-B Natriuret Pep 7250 H Impressions: Head CTA 06/24/19 00:00 IMPRESSION: NO CTA EVIDENCE OF STENOSIS OR ANEURYSM OF THE [place]. Neck CTA 06/24/19 00:00 IMPRESSION: No evidence of carotid artery stenosis or dissection. Cervical Spine CT 06/24/19 10:07 IMPRESSION: CHRONIC DEGENERATIVE CHANGES. NO ACUTE FINDINGS. Head CT 06/24/19 10:07 IMPRESSION: CHRONIC CHANGES OF ATROPHY AND MICROVASCULAR ISCHEMIA. NO ACUTE PROCESS. EVIDENCE OF ACUTE STROKE: NO. Forearm X-Ray 06/24/19 11:24 IMPRESSION: Possible nondisplaced fracture of the distal radius. Consider radiographs of the wrist. Head MRI 06/24/19 12:04 IMPRESSION: ATROPHY AND CHRONIC MICRO-VASCULAR ISCHEMIC CHANGES. Positive for restricted diffusion internal capsule on the left. Acute infarction. EVIDENCE OF ACUTE STROKE: YES. LEFT MCA. Wrist X-Ray 06/24/19 12:23 IMPRESSION: Degenerative arthritis of the right wrist. Assessment and Plan - Diagnosis (1) Altered mental status, unspecified Qualifiers: Altered mental status type: unspecified Qualified Code(s): R41.82 - Altered mental status, unspecified Is this a current diagnosis for this admission?: Yes Plan: 06/24/[id number]-wbgh-old male admitted for altered mental status and a fall possible stroke. Is going to be [facility] stroke core measures core measures implemented. Aspiration fall seizure precautions are requested. Swallowing evaluation will be done. CT head was negative for acute changes. CT of the neck and head and MRI of the brain is going to be requested. GI prophylaxis started. Patient is on Coumadin at home INR is 2.6 which was resumed during this hospital stay. PT consult OT consult is going to be requested. 06/25/[id number]-ujwm-old male admitted with altered mental status found to have a stroke involving the left MCA territory. Physical therapy working with the patient conservation planner on the case. Family wants a rehab placement. Stroke core measures implemented during the hospital stay. 06/26/2019-patient admitted with altered mental status most likely secondary to new onset CVA. Altered mental status is resolved. (2) Accidental fall Qualifiers: Encounter type: initial encounter Qualified Code(s): W19.XXXA - Unspecified fall, initial encounter Is this a current diagnosis for this admission?: Yes (3) HTN (hypertension) Is this a current diagnosis for this admission?: No Plan: 06/24/2019-patient came in with hypertensive urgency. With elevated blood pressures blood pressure is more than 180. Started on IV hydralazine 10 mg every 4 PRN for systolic blood pressure more than 160 and continue the lisinopril. 06/25/2019-patient admitted with hypertensive urgency with a systolic blood pressure more than 180 in the emergency room. Started on IV hydralazine 10 mg every 4 PRN for systolic blood pressure more than 160 and her lisinopril was discontinued he is blood pressure today is 167/81. Plan is to continue the present management. 06/26/2019-patient latest blood pressure is 176/88. Pulse rate is 80. Presently on IV hydralazine as needed, atenolol 50 mg p.o. daily, Lasix 20mg tablet twice a day and lisinopril 10 mg daily. Plan is to increase the Lasix to 40 mg twice a day. (4) Atrial fibrillation Is this a current diagnosis for this admission?: No Plan: 06/24/2019-patient has history of paroxysmal atrial fibrillation on digoxin and Coumadin he is still in atrial fibrillation with rate controlled. Plan is to continue the home medications. 06/25/2019-patient is some has a history of atrial fibrillation heart rate is controlled 84. He is on digoxin and INR is 7.76 to increase Coumadin to 7.5 mg p.o. nightly and check PT/INR on daily basis. 06/26/2019-patient has history of chronic atrial fibrillation on Coumadin. INR is 2.5 plan is to continue Coumadin 7.5 mg p.o. nightly. (5) CVA (cerebral vascular accident) Is this a current diagnosis for this admission?: Yes Plan: 06/26/2019-patient admitted with right-sided weakness MRI of the brain shows acute infarction in the left side of the internal capsule. PT OT consult was requested conservation planner consult was requested. Waiting for placement. - Time Time Spent with patient: 15-24 minutes Medications reviewed and adjusted accordingly: Yes Anticipated discharge: SNF
[2019-06-26] MEDS ORDERED: (PENDING PHARMACY ID) (Lisinopril [Zestril] 20 MG) PO SCH (10:00)
[2019-06-26] MEDS ORDERED: FUROSEMIDE 20 MG TABLET PO SCH (10:00)
[2019-06-26] MEDS: HYDRALAZINE HCL INJ/PF 20 MG/1 ML SDV IV PRN (15:42)
[2019-06-26] MEDS: FUROSEMIDE 40 MG TABLET PO SCH (17:05)
[2019-06-26] MEDS: SIMVASTATIN 10 MG TABLET PO SCH (22:07)
[2019-06-26] MEDS: WARFARIN SODIUM 7.5 MG TABLET PO SCH (22:07)
[2019-06-27] MEDS: HYDRALAZINE HCL INJ/PF 20 MG/1 ML SDV IV PRN ×2 (05:40→15:59)
[2019-06-27] MEDS: PANTOPRAZOLE SODIUM 40 MG TABLET.DR PO SCH ×2 (05:40→17:35)
[2019-06-27 06:34] LABS: HEMATOCRIT 39.4 % (37.9-51.0); HEMOGLOBIN 12.7 g/dL (13.5-17.0); INTERNATIONAL RATION (INR) 2.43; MEAN CORPUSCULAR HEMOGLOBIN 24.5 pg (27.0-33.4); MEAN CORPUSCULAR HGB CONC 32.2 g/dL (32.0-36.0); MEAN CORPUSCULAR VOLUME 76 fl (80-97); PLATELET COUNT 160 10^3/uL (150-450); PROTHROMBIN TIME 26.9 SEC (11.4-15.4); RED CELL DISTRIBUTION WIDTH 16.8 % (11.5-14.0); WHITE BLOOD COUNT 11.5 10^3/uL (4.0-10.5)
[2019-06-27 07:15] LABS: ABSOLUTE LYMPHOCYTES# (MANUAL) 0.5 10^3/uL (0.5-4.7); ABSOLUTE MONOCYTES # (MANUAL) 1.2 10^3/uL (0.1-1.4); BASOPHILS % (MANUAL) 0 % (0-2); EOSINOPHILS % (MANUAL) 2 % (0-6); LYMPHOCYTES % (MANUAL) 4 % (13-45); MONOCYTES % (MANUAL) 10 % (3-13); SEGMENTED NEUTROPHILS % (MAN) 84 % (42-78); TOTAL CELLS COUNTED 100
[2019-06-27 07:16] LABS: ANISOCYTOSIS 1+; PLATELET COMMENT ADEQUATE
[2019-06-27] MEDS ORDERED: HYDRALAZINE HCL INJ/PF 20 MG/1 ML SDV IV ONE (09:00)
--- NOTE | 2019-06-27 09:06 | PDOC PROGRESS REPORT ---
Subjective Progress Note for:: 06/27/19 Subjective:: 79 year old male with history of atrial fibrillation on Coumadin, hypertension brought in by EMS with history of fall at home. As per the family members patient was found on the floor around 7:30 AM. Family members did not know how long he is on the floor. Patient is alert and awake at that time. But unable to stand up. EMS was called. Initially in the ER he is okay but later on he was getting more confused and agitated unable to give his data but unable to give his name unable to tell the location. Work-up was done INR is 2.6, CT head was negative for acute changes. Found to have questionable nondisplaced right distal radius fracture was found on initial x-rays follow-up x-ray of the right wrist shows no fractures. Patient is full code. Family is okay for the patient to stay in the hospital for further management. 06/25/[id number]-misl-old male admitted with CVA. Involving the left MCA territory. He has a problem in the right side of the body. Able to work with physical therapy without any problem. Patient is presently on thin liquids and nectar thickened diet. No acute events in the last 24 hours afebrile. 06/26/[id number]-qofw-old male admitted with history of stroke involving the left MCA territory he has a problem with swallowing and right-sided weakness. No acute events in the last 24 hours. Waiting for placement. 06/27/[id number]-afbv-old male admitted with altered mental status confusion found to have CVA affecting the right side of the body he has a difficulty in swallowing speech working for the patient they want to do the modified barium swallow tomorrow. Patient blood pressures are elevated we are adjusting the blood pressures on daily basis. Reason For Visit: STROKE Physical Exam Vital Signs: Temp Pulse Resp BP Pulse Ox 98.9 F 81 17 187/88 H 98 06/27/19 07:48 06/27/19 07:48 06/27/19 07:48 06/27/19 07:48 06/27/19 07:48 Intake & Output 06/26/19 06/27/19 06/28/19 06:59 06:59 06:59 Intake Total 473 188 Balance 473 188 Weight 87.9 kg 85.8 kg General appearance: PRESENT: no acute distress Head exam: PRESENT: atraumatic Eye exam: PRESENT: PERRLA Ear exam: PRESENT: normal external ear exam Mouth exam: PRESENT: moist, tongue midline Teeth exam: PRESENT: poor dentation Neck exam: ABSENT: carotid bruit, JVD, lymphadenopathy, thyromegaly Respiratory exam: PRESENT: accessory muscle use Cardiovascular exam: PRESENT: irregular rhythm, systolic murmur GI/Abdominal exam: PRESENT: normal bowel sounds, soft. ABSENT: distended, guard ing, mass, organolmegaly, rebound, tenderness Rectal exam: PRESENT: deferred Extremities exam: PRESENT: full ROM. ABSENT: calf tenderness, clubbing, pedal edema Neurological exam: PRESENT: alert, awake, other - Patient has difficulty in swallowing and has right-sided weakness. Results Laboratory Results: 06/27/19 05:58 06/26/19 05:40 06/27/19 05:58 WBC 11.5 H RBC 5.20 Hgb 12.7 L Hct 39.4 MCV 76 L MCH 24.5 L MCHC 32.2 RDW 16.8 H Plt Count 160 Seg Neutrophils % Not Reportable Lymphocytes % Not Reportable Monocytes % Not Reportable Eosinophils % Not Reportable Basophils % Not Reportable Absolute Neutrophils Not Reportable Absolute Lymphocytes Not Reportable Absolute Monocytes Not Reportable Absolute Eosinophils Not Reportable Absolute Basophils Not Reportable 06/24/19 06/24/19 06/24/19 10:20 13:24 13:24 Creatine Kinase 174 H CK-MB (CK-2) 3.50 Troponin I 0.084 0.122 NT-Pro-B Natriuret Pep 06/24/19 06/24/19 06/25/19 18:50 18:50 00:58 Creatine Kinase 173 H 233 H CK-MB (CK-2) 3.63 Troponin I 0.122 NT-Pro-B Natriuret Pep 06/25/19 06/25/19 00:58 06:15 Creatine Kinase CK-MB (CK-2) 3.50 Troponin I 0.148 NT-Pro-B Natriuret Pep 7250 H Impressions: Head CTA 06/24/19 00:00 IMPRESSION: NO CTA EVIDENCE OF STENOSIS OR ANEURYSM OF THE [place] OF [place]BLES. Neck CTA 06/24/19 00:00 IMPRESSION: No evidence of carotid artery stenosis or dissection. Cervical Spine CT 06/24/19 10:07 IMPRESSION: CHRONIC DEGENERATIVE CHANGES. NO ACUTE FINDINGS. Head CT 06/24/19 10:07 IMPRESSION: CHRONIC CHANGES OF ATROPHY AND MICROVASCULAR ISCHEMIA. NO ACUTE PROCESS. EVIDENCE OF ACUTE STROKE: NO. Forearm X-Ray 06/24/19 11:24 IMPRESSION: Possible nondisplaced fracture of the distal radius. Consider radiographs of the wrist. Head MRI 06/24/19 12:04 IMPRESSION: ATROPHY AND CHRONIC MICRO-VASCULAR ISCHEMIC CHANGES. Positive for restricted diffusion internal capsule on the left. Acute infarction. EVIDENCE OF ACUTE STROKE: YES. LEFT MCA. Wrist X-Ray 06/24/19 12:23 IMPRESSION: Degenerative arthritis of the right wrist. Assessment and Plan - Diagnosis (1) Altered mental status, unspecified Qualifiers: Altered mental status type: unspecified Qualified Code(s): R41.82 - Altered mental status, unspecified Is this a current diagnosis for this admission?: Yes Plan: 06/24/[id number]-fizz-old male admitted for altered mental status and a fall p ossible stroke. Is going to be CU stroke core measures core measures implemented. Aspiration fall seizure precautions are requested. Swallowing evaluation will be done. CT head was negative for acute changes. CT of the neck and head and MRI of the brain is going to be requested. GI prophylaxis started. Patient is on Coumadin at home INR is 2.6 which was resumed during this hospital stay. PT consult OT consult is going to be requested. 06/25/[id number]-ijcs-old male admitted with altered mental status found to have a stroke involving the left MCA territory. Physical therapy working with the patient party planner on the case. Family wants a rehab placement. Stroke core measures implemented during the hospital stay. 06/26/2019-patient admitted with altered mental status most likely secondary to new onset CVA. Altered mental status is resolved. 06/27/2019-patient admitted with altered mental status and confusion most likely secondary to new onset CVA. PT consult was done rehab consult was done speech consult was done. He is going for modified barium swallow tomorrow. Waiting for placement. (2) Accidental fall Qualifiers: Encounter type: initial encounter Qualified Code(s): W19.XXXA - Unspecified fall, initial encounter Is this a current diagnosis for this admission?: Yes (3) HTN (hypertension) Is this a current diagnosis for this admission?: No Plan: 06/24/2019-patient came in with hypertensive urgency. With elevated blood pressures blood pressure is more than 180. Started on IV hydralazine 10 mg every 4 PRN for systolic blood pressure more than 160 and continue the lisinopril. 06/25/2019-patient admitted with hypertensive urgency with a systolic blood pressure more than 180 in the emergency room. Started on IV hydralazine 10 mg every 4 PRN for systolic blood pressure more than 160 and her lisinopril was discontinued he is blood pressure today is 167/81. Plan is to continue the pr esent management. 06/26/2019-patient latest blood pressure is 176/88. Pulse rate is 80. Presently on IV hydralazine as needed, atenolol 50 mg p.o. daily, Lasix 20mg tablet twice a day and lisinopril 10 mg daily. Plan is to increase the Lasix to 40 mg twice a day. 06/27/2019-patient blood pressure today is 178/87. He is on Lasix 40 mg twice a day, lisinopril 20 mg daily, and also on metoprolol, IV hydralazine 10 mg every 6 hours as needed. Started on amlodipine 10 mg p.o. daily today continue to closely monitor the blood pressures on regular basis. (4) Atrial fibrillation Is this a current diagnosis for this admission?: No Plan: 06/24/2019-patient has history of paroxysmal atrial fibrillation on digoxin and Coumadin he is still in atrial fibrillation with rate controlled. Plan is to continue the home medications. 06/25/2019-patient is some has a history of atrial fibrillation heart rate is controlled 84. He is on digoxin and INR is 7.76 to increase Coumadin to 7.5 mg p.o. nightly and check PT/INR on daily basis. 06/26/2019-patient has history of chronic atrial fibrillation on Coumadin. INR is 2.5 plan is to continue Coumadin 7.5 mg p.o. nightly. 06/27/2019-patient has history of chronic atrial fibrillation on Coumadin INR is 2.43 today. Plan is to continue the current dose of Coumadin 7.5 mg p.o. daily. (5) CVA (cerebral vascular accident) Is this a current diagnosis for this admission?: Yes Plan: 06/26/2019-patient admitted with right-sided weakness MRI of the brain shows acute infarction in the left side of the internal capsule. PT OT consult was requested party planner consult was requested. Waiting for placement. 06/27/2019-patient came with right-sided CVA confirmed by MRI patient is waiting for the rehab placement. - Time Time Spent with patient: 25-34 minutes Medications reviewed and adjusted accordingly: Yes Anticipated discharge: SNF
[2019-06-27] MEDS: ATENOLOL 50 MG TABLET PO SCH (10:17)
[2019-06-27] MEDS: DIGOXIN 0.25 MG TABLET PO SCH (10:17)
[2019-06-27] MEDS: FUROSEMIDE 40 MG TABLET PO SCH ×2 (10:17→17:35)
[2019-06-27] MEDS: FAMOTIDINE 20 MG TABLET PO SCH ×2 (10:17→22:00)
[2019-06-27] MEDS: AMLODIPINE BESYLATE 10 MG TABLET PO SCH (10:17)
[2019-06-27] MEDS: LISINOPRIL 10 MG TABLET PO SCH (10:17)
[2019-06-27] MEDS: ASPIRIN 325 MG TABLET PO SCH (10:18)
[2019-06-27] MEDS: SIMVASTATIN 10 MG TABLET PO SCH (22:00)
[2019-06-27] MEDS: WARFARIN SODIUM 7.5 MG TABLET PO SCH (22:00)
[2019-06-28] MEDS: HYDRALAZINE HCL INJ/PF 20 MG/1 ML SDV IV PRN ×2 (00:47→16:45)
[2019-06-28] MEDS: PANTOPRAZOLE SODIUM 40 MG TABLET.DR PO SCH ×2 (05:27→16:45)
[2019-06-28 05:53] LABS: PROTHROMBIN TIME 33.5 SEC (11.4-15.4)
[2019-06-28 05:55] LABS: HEMOGLOBIN 13.4 g/dL (13.5-17.0); MEAN CORPUSCULAR HEMOGLOBIN 24.1 pg (27.0-33.4); MEAN CORPUSCULAR HGB CONC 31.8 g/dL (32.0-36.0); MEAN CORPUSCULAR VOLUME 76 fl (80-97); PLATELET COUNT 157 10^3/uL (150-450); RED BLOOD COUNT 5.54 10^6/uL (4.35-5.55); RED CELL DISTRIBUTION WIDTH 17.1 % (11.5-14.0); WHITE BLOOD COUNT 12.2 10^3/uL (4.0-10.5)
[2019-06-28 06:07] LABS: ALANINE AMINOTRANSFERASE 23 U/L (21-72); ALBUMIN 4.2 g/dL (3.5-5.0); ALKALINE PHOSPHATASE 56 U/L (38-126); ANION GAP 13 (5-19); ASPARTATE AMINO TRANSFERASE 34 U/L (17-59); BILIRUBIN,DIRECT 0.4 mg/dL (0.0-0.4); BILIRUBIN,TOTAL 1.1 mg/dL (0.2-1.3); BLOOD UREA NITROGEN 57 mg/dL (7-20); CALCIUM 9.5 mg/dL (8.4-10.2); CARBON DIOXIDE 29 mmol/L (22-30); CHLORIDE 107 mmol/L (98-107); GLUCOSE 144 mg/dL (75-110); POTASSIUM 3.6 mmol/L (3.6-5.0)
[2019-06-28 06:36] LABS: BASOPHILS % (MANUAL) 0 % (0-2); EOSINOPHILS % (MANUAL) 1 % (0-6); LYMPHOCYTES % (MANUAL) 0 % (13-45); MONOCYTES % (MANUAL) 8 % (3-13); SEGMENTED NEUTROPHILS % (MAN) 91 % (42-78); TOTAL CELLS COUNTED 100
[2019-06-28 06:37] LABS: ANISOCYTOSIS SLIGHT; HYPERSEGMENTED NEUTROPHILS PRESENT; OVALOCYTES SLIGHT; PLATELET COMMENT ADEQUATE; PLATELET LARGE PRESENT; POIKILOCYTOSIS SLIGHT
--- NOTE | 2019-06-28 09:07 | PDOC PROGRESS REPORT ---
Subjective Progress Note for:: 06/28/19 Subjective:: Patient is seen resting in bed. His 2 sons and one [id number] are at the bedside. He is eating breakfast. He is oriented to self and family only at the present time. He denies any chest pain, shortness of breath or dyspnea at rest. He denies any nausea, vomiting or abdominal pain. He denies any fevers or chills. He denies any arthralgias or myalgias. Remaining review of systems are negative Reason For Visit: STROKE Physical Exam Vital Signs: Temp Pulse Resp BP Pulse Ox 98.8 F 83 22 H 150/80 H 90 L 06/28/19 03:45 06/28/19 03:45 06/28/19 03:45 06/28/19 03:45 06/28/19 03:45 Intake & Output 06/27/19 06/28/19 06/29/19 06:59 06:59 06:59 Intake Total 188 458 Balance 188 458 Weight 85.8 kg 85.5 kg General appearance: PRESENT: no acute distress, well-developed, well-nourished Head exam: PRESENT: atraumatic, normocephalic Eye exam: PRESENT: conjunctiva pink, EOMI, PERRLA. ABSENT: scleral icterus Ear exam: PRESENT: normal external ear exam Mouth exam: PRESENT: moist, tongue midline Neck exam: ABSENT: carotid bruit, JVD, lymphadenopathy, thyromegaly Respiratory exam: PRESENT: clear to auscultation gurpreet. ABSENT: rales, rhonchi, wheezes Cardiovascular exam: PRESENT: RRR. ABSENT: diastolic murmur, rubs, systolic murmur Pulses: PRESENT: normal dorsalis pedis pul Vascular exam: PRESENT: normal capillary refill GI/Abdominal exam: PRESENT: normal bowel sounds, soft. ABSENT: distended, guarding, mass, organolmegaly, rebound, tenderness Rectal exam: PRESENT: deferred Extremities exam: PRESENT: full ROM. ABSENT: calf tenderness, clubbing, pedal edema Neurological exam: PRESENT: alert, altered, awake, oriented to person, CN II-XII grossly intact, other - speech is garbled at times, Right side extremities 4/5 muscle strength compared to left 5/5. ABSENT: motor sensory deficit Psychiatric exam: PRESENT: flat affect Skin exam: PRESENT: dry, intact, warm. ABSENT: cyanosis, rash Results Laboratory Results: 06/28/19 05:15 06/28/19 05:15 06/28/19 06/28/19 05:15 05:15 WBC 12.2 H RBC 5.54 Hgb 13.4 L Hct 42.0 MCV 76 L MCH 24.1 L MCHC 31.8 L RDW 17.1 H Plt Count 157 Seg Neutrophils % Not Reportable Lymphocytes % Not Reportable Monocytes % Not Reportable Eosinophils % Not Reportable Basophils % Not Reportable Absolute Neutrophils Not Reportable Absolute Lymphocytes Not Reportable Absolute Monocytes Not Reportable Absolute Eosinophils Not Reportable Absolute Basophils Not Reportable Sodium 148.6 H Potassium 3.6 Chloride 107 Carbon Dioxide 29 Anion Gap 13 BUN 57 H Creatinine 1.96 H Est GFR ( Amer) 40 L Est GFR (Non-Af Amer) 33 L Glucose 144 H Calcium 9.5 Magnesium 2.4 H Total Bilirubin 1.1 AST 34 ALT 23 Alkaline Phosphatase 56 Total Protein 7.0 Albumin 4.2 06/24/19 06/24/19 06/24/19 10:20 13:24 13:24 Creatine Kinase 174 H CK-MB (CK-2) 3.50 Troponin I 0.084 0.122 NT-Pro-B Natriuret Pep 06/24/19 06/24/19 06/25/19 18:50 18:50 00:58 Creatine Kinase 173 H 233 H CK-MB (CK-2) 3.63 Troponin I 0.122 NT-Pro-B Natriuret Pep 06/25/19 06/25/19 00:58 06:15 Creatine Kinase CK-MB (CK-2) 3.50 Troponin I 0.148 NT-Pro-B Natriuret Pep 7250 H Impressions: Head CTA 06/24/19 00:00 IMPRESSION: NO CTA EVIDENCE OF STENOSIS OR ANEURYSM OF THE [place] OF [place]ES. Neck CTA 06/24/19 00:00 IMPRESSION: No evidence of carotid artery stenosis or dissection. Cervical Spine CT 06/24/19 10:07 IMPRESSION: CHRONIC DEGENERATIVE CHANGES. NO ACUTE FINDINGS. Head CT 06/24/19 10:07 IMPRESSION: CHRONIC CHANGES OF ATROPHY AND MICROVASCULAR ISCHEMIA. NO ACUTE PROCESS. EVIDENCE OF ACUTE STROKE: NO. Forearm X-Ray 06/24/19 11:24 IMPRESSION: Possible nondisplaced fracture of the distal radius. Consider radiographs of the wrist. Head MRI 06/24/19 12:04 IMPRESSION: ATROPHY AND CHRONIC MICRO-VASCULAR ISCHEMIC CHANGES. Positive for restricted diffusion internal capsule on the left. Acute infarction. EVIDENCE OF ACUTE STROKE: YES. LEFT MCA. Wrist X-Ray 06/24/19 12:23 IMPRESSION: Degenerative arthritis of the right wrist. Assessment and Plan - Diagnosis (1) Acute kidney injury Is this a current diagnosis for this admission?: Yes Plan: Will hold lasix po bid and lisinopril. Increase oral intake with encouragement (2) Hypernatremia Is this a current diagnosis for this admission?: Yes Plan: As above in number. Will recheck in am (3) Atrial fibrillation Is this a current diagnosis for this admission?: No (4) CVA (cerebral vascular accident) Qualifiers: CVA mechanism: embolism Is this a current diagnosis for this admission?: Yes Plan: Patient was admitted with right-sided weakness MRI of the brain shows acute infarction in the left side of the internal capsule. PT OT and speech consulted. He is awaiting short term rehab (5) Contusion of right arm Qualifiers: Encounter type: initial encounter Qualified Code(s): S40.021A - Contusion of right upper arm, initial encounter Is this a current diagnosis for this admission?: Yes (6) HTN (hypertension) Is this a current diagnosis for this admission?: No Plan: Will hold lisinopril due to bump in BUN/CR likely due to bid lasix and poor intake of liquids (7) Altered mental status, unspecified Qualifiers: Altered mental status type: unspecified Qualified Code(s): R41.82 - Altered mental status, unspecified Is this a current diagnosis for this admission?: Yes Plan: 06/27/2019-patient admitted with altered mental status and confusion most likely secondary to new onset CVA. PT consult was done rehab consult was done speech consult was done. He is going for modified barium swallow tomorrow. Waiting for placement. - Time Time Spent with patient: 25-34 minutes Total Critical Time (Minutes): 20 Anticipated discharge: Acute Rehab Within: when bed available - Inpatient Certification Based on my medical assessment, after consideration of the patient's comorbidities, presenting symptoms, or acuity I expect that the services needed warrant INPATIENT care.: Yes I certify that my determination is in accordance with my understanding of Medicare's requirements for reasonable and necessary INPATIENT services [42 CFR 412.3e].: Yes Medical Necessity: Need for Neurological Checks, Risk of Complication if Not Cared For in Hospital Post Hospital Care: D/C [employer] Documentation
--- NOTE | 2019-06-28 10:25 | RADIOLOGY REPORT (SQ) ---
EXAM DESCRIPTION: NATALIIA SWALLOW COMPLETED DATE/TIME: 06/28/2019 9:31 am REASON FOR STUDY: signs of aspiration after CVA COMPARISON: None. TECHNIQUE: Videofluoroscopic swallowing examination was performed in conjunction with speech patholo gy. Videofluoroscopic imaging was obtained and reviewed and these are the findings: RADIATION DOSE: Fluoro time 8.46 minutes 1 images saved to PACS. LIMITATIONS: None FINDINGS: The patient was brought into the fluoro room and placed upright on a modified barium swall ow chair. The patient was then given multiple consistencies mixed with barium to swallow under live fluoroscopic video guidance. According to the Speech Pathologist there was aspiration seen with thin barium. Deep laryngeal penetration was seen with residuals. Please refer to the speech pathology re port for further details. IMPRESSION: ASPIRATION WITH THIN BARIUM. PLEASE SEE SPEECH PATHOLOGIST REPORT FOR OTHER FINDINGS AND RECOMMENDATIONS. COMMENT: None Quality ID [id number]: Final reports for procedures using fluoroscopy that document radiation exposure marycruz david, or exposure time and number of fluorographic images (if radiation exposure indices are not avail able) TECHNICAL DOCUMENTATION: JOB ID: [id number] [employer]- All Rights Reserved Reading location - IP/workstation name: [email or web address] [id number]
[2019-06-28] MEDS: ASPIRIN 325 MG TABLET PO SCH (10:50)
[2019-06-28] MEDS: ATENOLOL 50 MG TABLET PO SCH (10:50)
[2019-06-28] MEDS: AMLODIPINE BESYLATE 10 MG TABLET PO SCH (10:50)
[2019-06-28] MEDS: DIGOXIN 0.25 MG TABLET PO SCH (10:50)
[2019-06-28] MEDS: FAMOTIDINE 20 MG TABLET PO SCH ×2 (10:51→22:39)
--- NOTE | 2019-06-28 11:09 | ST Inp Modified Barium Swallow ---
Medical Diagnosis - Medical Diagnoses Medical Diagnosis Description & ICD-10 Code(s): CVA - ICD-10 Tx Diagnosis Coding (1) Dysphagia ICD-10 Code(s): R13.10 - DYSPHAGIA, UNSPECIFIED ST [place] [facility] [place] Date: 06/28/19 Date of Onset: 06/24/19 - History -: Medical - per EMR: patient admitted 06/24 with history of fall and altered me ntal status. Prior medical history includes atrial fibrillation and hypertension. Patient was found on the floor of his home with increased confusion and difficulty getting up. MRI revealed left MCA stroke. Patient failed nursing swallow screen due to cough/choke response. Was then placed on nectar liquids and mechanical soft ground diet prior to speech evaluation. At bedside, patient demonstrated difficulty with thin liquids, recommended continuing nectar liquids with thin liquid trials between meals. Continued difficulty noted with swallowing which them prompted MBSS recommendation. Medications: Medications Reviewed Allergies: No known allergies - Subjective Current Nutritional Means: PO Current PO Diet: Mechanical- ground, Thickened liquids - nectar Current Symptoms: Coughing, Wet/gurgly voice, Pocketing, Spillage Pain: Patient reports, 0/5 - Objective Assessment: Upright, Left Lateral - Food Trials Food Trials Used: Thin liquids, Garrison thick liquids, Pureed, Soft solids - rosmery cracker The Patient: Required Assist - Assessment Labial Function: Impaired - reduced right side seal Lingual Function: Within Functional Limits Mandibular Function: Within Functional Limits Velo-Pharyngeal Function: Unremarkable Laryngeal Function: Weak Cough, clear voicing - Pharyngeal Stage Initiation of Pharyngeal Stage: Delayed Reflex Delay Time (seconds): 3 - triggered at level of pyriform Reduced Pressure Generation: Yes Reduced Tongue Base Retraction: No Pre-Swallowing Pooling in Valleculae: Significant Pre-Swallowing Pooling in Pyriforms: Moderate Reduced Thyro-Hyiod Approximation: No Reduced Epiglottic Excursion: No Reduced Pharyngeal Peristalsis: Yes Multiple Swallows With: Ineffective Clearance Post Swallow Residuals in Valleculae: Moderate Post Swallow Residuals in Pyriforms: Moderate Post Swallow Residuals: throughout pharynx Pahryngeal Stage Comments: Patient continues to have delayed swallow reflex and reduced pharyngeal constriction, resulting in pharyngeal residue after the swallow. Significant aspiration of thin liquid was noted after the swallow, airway was protected during hte swallow, but not all thin liquid cleared on the swallow, when airway re-opened, residue poured into laryngeal vestibule and was aspirated. Difficulty clearing textures of heavier consistency, as there was greater residue of pudding than nectar liquids, and greater significant residue with solid trial. Patient did not trigger a spontaneous second swallow to clear residue, max cuing required. - Impression/Summary Laryngeal Penetration: Yes, Deep - with residuals Tracheal Aspiration: yes, after swallow - with thin liquids Productive Cough: Yes Effective Clearing: no Compensatory Strategies: Patient had difficulty following directions for compensatory strategies. Patient Presents With: Oral-Pharyngeal dysph., Severe Risk of Aspiration: Severe - Recommendations Solid Diet Recommendations: Pureed Liquid Diet Recommendations: Garrison-Thick Strict Aspitarion Precautions: Yes Dysphagia Therapy with HOMEWORKER: Yes Recommended Techniques: Check Mouth for Pocketing, Med Crushed in Applesauce, Small Bites and Sips, Alternate Bites/Sips Supervision: requires assistance Other Recommendations: Patient is at high risk of aspiration due to reduced strength and coordination of swallowing and significant pharyngeal residuals. Status should be monitored closlely. - Time Total Time: 30 Total Timed Minutes: 30
[2019-06-28] MEDS ORDERED: WARFARIN SODIUM 3 MG TABLET PO SCH (22:00)
[2019-06-28] MEDS ORDERED: WARFARIN SODIUM 3 MG TABLET PO ONE (22:00)
[2019-06-28] MEDS: SIMVASTATIN 10 MG TABLET PO SCH (22:39)
[2019-06-29 05:54] LABS: INTERNATIONAL RATION (INR) 4.48; PROTHROMBIN TIME 43.8 SEC (11.4-15.4)
[2019-06-29] MEDS: PANTOPRAZOLE SODIUM 40 MG TABLET.DR PO SCH ×2 (06:00→17:33)
[2019-06-29 06:10] LABS: ANION GAP 13 (5-19); BLOOD UREA NITROGEN 76 mg/dL (7-20); CALCIUM 9.4 mg/dL (8.4-10.2); CARBON DIOXIDE 30 mmol/L (22-30); CHLORIDE 110 mmol/L (98-107); GLUCOSE 141 mg/dL (75-110); POTASSIUM 3.6 mmol/L (3.6-5.0)
[2019-06-29] MEDS ORDERED: NORMAL SALINE 1000 ML 1,000 ML IV PRN (07:01)
[2019-06-29] MEDS: ASPIRIN 325 MG TABLET PO SCH (10:46)
[2019-06-29] MEDS: DIGOXIN 0.125 MG TABLET PO SCH (10:46)
[2019-06-29] MEDS: FAMOTIDINE 20 MG TABLET PO SCH ×2 (10:46→21:48)
[2019-06-29] MEDS: ATENOLOL 50 MG TABLET PO SCH (10:47)
[2019-06-29] MEDS: AMLODIPINE BESYLATE 10 MG TABLET PO SCH (10:47)
[2019-06-29] MEDS ORDERED: 1/2 NORMAL SALINE 1,000 ML IV PRN (13:20)
--- NOTE | 2019-06-29 15:58 | PDOC PROGRESS REPORT ---
Subjective Progress Note for:: 06/29/19 Subjective:: Patient is seen resting in bed. His son is at the bedside. He is not presently eating his breakfast. I did assist him to drink some liquids. He is oriented to self and family only at the present time. He denies any chest pain, shortness of breath or dyspnea at rest. He denies any nausea, vomiting or abdominal pain. His affect remains extremely flat. He continues to have right-sided facial droop. He denies any fevers or chills. He denies any arthralgias or myalgias. Remaining review of systems are negative Reason For Visit: STROKE Physical Exam Vital Signs: Temp Pulse Resp BP Pulse Ox 97.6 F 70 20 156/92 H 95 06/29/19 08:07 06/29/19 08:07 06/29/19 08:07 06/29/19 08:07 06/29/19 08:07 Intake & Output 06/28/19 06/29/19 06/30/19 06:59 06:59 06:59 Intake Total 458 50 Balance 458 50 Weight 85.5 kg 84 kg General appearance: PRESENT: no acute distress, well-developed, well-nourished, other - Right-sided facial droop Head exam: PRESENT: atraumatic, normocephalic Eye exam: PRESENT: conjunctiva pink, EOMI, PERRLA. ABSENT: scleral icterus Ear exam: PRESENT: normal external ear exam Mouth exam: PRESENT: moist, tongue midline Neck exam: ABSENT: carotid bruit, JVD, lymphadenopathy, thyromegaly Respiratory exam: PRESENT: clear to auscultation gurpreet. ABSENT: rales, rhonchi, wheezes Cardiovascular exam: PRESENT: irregular rhythm, +S1, +S2 Pulses: PRESENT: normal carotid pulses, normal radial pulses Vascular exam: PRESENT: normal capillary refill GI/Abdominal exam: PRESENT: normal bowel sounds, soft. ABSENT: distended, guarding, mass, organolmegaly, rebound, tenderness Rectal exam: PRESENT: deferred Extremities exam: PRESENT: full ROM. ABSENT: calf tenderness, clubbing, pedal edema Musculoskeletal exam: PRESENT: ambulatory, full ROM Neurological exam: PRESENT: alert, altered, awake, oriented to person, CN II-XII grossly intact, other - 4/5 right sided extremity weakness, right sided facial droop and dysphagia Psychiatric exam: PRESENT: appropriate affect, normal mood. ABSENT: homicidal ideation, suicidal ideation Skin exam: PRESENT: dry, intact, warm. ABSENT: cyanosis, rash Results Laboratory Results: 06/28/19 05:15 06/29/19 05:16 06/29/19 05:16 Sodium 152.7 H Potassium 3.6 Chloride 110 H Carbon Dioxide 30 Anion Gap 13 BUN 76 H Creatinine 2.38 H Est GFR ( Amer) 32 L Est GFR (Non-Af Amer) 26 L Glucose 141 H Calcium 9.4 Magnesium 2.6 H 06/24/19 06/24/19 06/24/19 10:20 13:24 13:24 Creatine Kinase 174 H CK-MB (CK-2) 3.50 Troponin I 0.084 0.122 NT-Pro-B Natriuret Pep 06/24/19 06/24/19 06/25/19 18:50 18:50 00:58 Creatine Kinase 173 H 233 H CK-MB (CK-2) 3.63 Troponin I 0.122 NT-Pro-B Natriuret Pep 06/25/19 06/25/19 00:58 06:15 Creatine Kinase CK-MB (CK-2) 3.50 Troponin I 0.148 NT-Pro-B Natriuret Pep 7250 H Impressions: Head CTA 06/24/19 00:00 IMPRESSION: NO CTA EVIDENCE OF STENOSIS OR ANEURYSM OF THE [place]. Neck CTA 06/24/19 00:00 IMPRESSION: No evidence of carotid artery stenosis or dissection. Cervical Spine CT 06/24/19 10:07 IMPRESSION: CHRONIC DEGENERATIVE CHANGES. NO ACUTE FINDINGS. Head CT 06/24/19 10:07 IMPRESSION: CHRONIC CHANGES OF ATROPHY AND MICROVASCULAR ISCHEMIA. NO ACUTE PROCESS. EVIDENCE OF ACUTE STROKE: NO. Forearm X-Ray 06/24/19 11:24 IMPRESSION: Possible nondisplaced fracture of the distal radius. Consider radiographs of the wrist. Head MRI 06/24/19 12:04 IMPRESSION: ATROPHY AND CHRONIC MICRO-VASCULAR ISCHEMIC CHANGES. Positive for restricted diffusion internal capsule on the left. Acute infarction. EVIDENCE OF ACUTE STROKE: YES. LEFT MCA. Wrist X-Ray 06/24/19 12:23 IMPRESSION: Degenerative arthritis of the right wrist. Modified Barium Swallow 06/28/19 00:00 IMPRESSION: ASPIRATION WITH THIN BARIUM. PLEASE SEE SPEECH PATHOLOGIST REPORT FOR OTHER FINDINGS AND RECOMMENDATIONS. Assessment and Plan - Diagnosis (1) Acute kidney injury Is this a current diagnosis for this admission?: Yes Plan: Will hold lasix po bid and lisinopril. He has had poor oral intake due to dysphagia. Will start IV hydration today due to BUN up to 73 and creatinine is 2.6. Continue to hold nephrotoxic medications and dosages. Discussed with sons. We will have to hold rehab until Tuesday. (2) Hypernatremia Is this a current diagnosis for this admission?: Yes Plan: As above in number 1. We will hydrate with IV fluids. (3) Atrial fibrillation Qualifiers: Atrial fibrillation type: chronic Qualified Code(s): I48.2 - Chronic atrial fibrillation Is this a current diagnosis for this admission?: No Plan: We will continue metoprolol. Will hold warfarin tonight due to INR being eleva sarah at 4.4. Will recheck in the a.m. (4) CVA (cerebral vascular accident) Qualifiers: CVA mechanism: embolism Is this a current diagnosis for this admission?: Yes Plan: Patient was admitted with right-sided weakness MRI of the brain shows acute infarction in the left side of the internal capsule. PT OT and speech consulted. He is awaiting short term rehab (5) Contusion of right arm Qualifiers: Encounter type: initial encounter Qualified Code(s): S40.021A - Contusion of right upper arm, initial encounter Is this a current diagnosis for this admission?: Yes (6) HTN (hypertension) Is this a current diagnosis for this admission?: No Plan: Will hold lisinopril due to bump in BUN/CR likely due to bid lasix and poor intake of liquids (7) Altered mental status, unspecified Qualifiers: Altered mental status type: unspecified Qualified Code(s): R41.82 - Altered mental status, unspecified Is this a current diagnosis for this admission?: Yes Plan: 06/27/2019-patient admitted with altered mental status and confusion most likely secondary to new onset CVA. PT consult was done rehab consult was done speech consult was done. He is going for modified barium swallow tomorrow. Waiting for placement. - Time Time Spent with patient: 25-34 minutes Total Critical Time (Minutes): 25 Medications reviewed and adjusted accordingly: Yes Anticipated discharge: Acute Rehab Within: within 48 hours - Inpatient Certification Based on my medical assessment, after consideration of the patient's comorbidities, presenting symptoms, or acuity I expect that the services needed warrant INPATIENT care.: Yes Medical Necessity: Need For IV Fluids, Need for Neurological Checks
[2019-06-29] MEDS: SIMVASTATIN 10 MG TABLET PO SCH (21:49)
[2019-06-29] MEDS ORDERED: WARFARIN SODIUM 3 MG TABLET PO SCH (22:00)
[2019-06-30] MEDS: PANTOPRAZOLE SODIUM 40 MG TABLET.DR PO SCH ×2 (05:53→16:41)
[2019-06-30 06:14] LABS: PROTHROMBIN TIME 48.8 SEC (11.4-15.4)
[2019-06-30 06:15] LABS: INTERNATIONAL RATION (INR) 5.13
[2019-06-30 06:16] LABS: ANION GAP 13 (5-19); BLOOD UREA NITROGEN 98 mg/dL (7-20); CALCIUM 9.1 mg/dL (8.4-10.2); CARBON DIOXIDE 30 mmol/L (22-30); CHLORIDE 114 mmol/L (98-107); GLUCOSE 148 mg/dL (75-110); POTASSIUM 3.6 mmol/L (3.6-5.0)
[2019-06-30] MEDS ORDERED: 1/2 NORMAL SALINE 1,000 ML IV PRN (06:57)
[2019-06-30] MEDS ORDERED: TAMSULOSIN HCL 0.4 MG CAP.SR.24H PO ONE (09:00)
[2019-06-30] MEDS: DEXTROSE 5%-WATER 1000 ML 1,000 ML IV PRN ×2 (09:00→16:41)
[2019-06-30] MEDS: AMLODIPINE BESYLATE 10 MG TABLET PO SCH (09:41)
[2019-06-30] MEDS: ATENOLOL 50 MG TABLET PO SCH (09:41)
[2019-06-30] MEDS: ASPIRIN 81 MG TABLET, ENT COATED PO SCH (09:42)
[2019-06-30] MEDS: DIGOXIN 0.125 MG TABLET PO SCH (09:42)
[2019-06-30] MEDS: FAMOTIDINE 20 MG TABLET PO SCH ×2 (09:42→23:33)
[2019-06-30 13:43] LABS: AMORPHOUS SEDIMENT,URINE TRACE /HPF; APPEARANCE,URINE CLOUDY; BILIRUBIN,URINE NEGATIVE (NEGATIVE); COLOR,URINE YELLOW; GLUCOSE, URINE NEGATIVE (NEGATIVE); KETONES,URINE NEGATIVE (NEGATIVE); LEUKOCYTE ESTERASE,URINE TRACE (NEGATIVE); NITRITE,URINE NEGATIVE (NEGATIVE); PROTEIN,URINE 30 mg/dL (NEGATIVE); URINE SPECIFIC GRAVITY 1.014; UROBILINOGEN,URINE NEGATIVE mg/dL (<2.0)
[2019-06-30] MEDS ORDERED: CEFTRIAXONE 1 GM/D5W RTU 1 GM/50 ML RTUPB IV SCH (16:00)
[2019-06-30] MEDS: CEFTRIAXONE SODIUM 1,000 MG in DEXTROSE 5%-WATER 50 ML IV SCH (17:10)
[2019-06-30] MEDS: TAMSULOSIN HCL 0.4 MG CAP.SR.24H PO SCH (17:10)
[2019-06-30] MEDS ORDERED: NORMAL SALINE 250 ML IV PRN ×2 (20:27)
[2019-06-30] MEDS ORDERED: PHYTONADIONE INJ 10 MG/1 ML AMPULE SUBCUT ONE (21:15)
[2019-06-30 21:22] LABS: HEMATOCRIT 37.1 % (37.9-51.0); HEMOGLOBIN 11.7 g/dL (13.5-17.0); MEAN CORPUSCULAR HEMOGLOBIN 23.9 pg (27.0-33.4); MEAN CORPUSCULAR HGB CONC 31.5 g/dL (32.0-36.0); MEAN CORPUSCULAR VOLUME 76 fl (80-97); PLATELET COUNT 174 10^3/uL (150-450); RED BLOOD COUNT 4.88 10^6/uL (4.35-5.55); RED CELL DISTRIBUTION WIDTH 16.8 % (11.5-14.0); WHITE BLOOD COUNT 11.1 10^3/uL (4.0-10.5)
[2019-06-30 21:25] LABS: AMORPHOUS SEDIMENT,URINE TRACE /HPF; APPEARANCE,URINE SLIGHTLY-CLOUDY; BILIRUBIN,URINE NEGATIVE (NEGATIVE); COLOR,URINE YELLOW; GLUCOSE, URINE NEGATIVE (NEGATIVE); KETONES,URINE NEGATIVE (NEGATIVE); LEUKOCYTE ESTERASE,URINE NEGATIVE (NEGATIVE); NITRITE,URINE NEGATIVE (NEGATIVE); PROTEIN,URINE 30 mg/dL (NEGATIVE); URINE SPECIFIC GRAVITY 1.015; UROBILINOGEN,URINE NEGATIVE mg/dL (<2.0)
[2019-06-30 21:34] LABS: INTERNATIONAL RATION (INR) 6.87
[2019-06-30 21:35] LABS: ABSOLUTE LYMPHOCYTES# (MANUAL) 0.2 10^3/uL (0.5-4.7); ABSOLUTE MONOCYTES # (MANUAL) 1.1 10^3/uL (0.1-1.4); BAND NEUTROPHILS % (MANUAL) 1 % (3-5); BASOPHILS % (MANUAL) 0 % (0-2); EOSINOPHILS % (MANUAL) 1 % (0-6); LYMPHOCYTES % (MANUAL) 2 % (13-45); MONOCYTES % (MANUAL) 10 % (3-13); PLATELET CLUMPS PRESENT; SEGMENTED NEUTROPHILS % (MAN) 86 % (42-78); TOTAL CELLS COUNTED 100
[2019-06-30 21:37] LABS: ANISOCYTOSIS 1+; HYPOCHROMASIA SLIGHT; OVALOCYTES SLIGHT
[2019-06-30 21:48] LABS: PROTHROMBIN TIME 61.7 SEC (11.4-15.4)
[2019-06-30] MEDS: SIMVASTATIN 10 MG TABLET PO SCH (23:32)
[2019-06-30] MEDS ORDERED: PHYTONADIONE INJ 10 MG/1 ML AMPULE ONE (23:34)
[2019-07-01] MEDS: DEXTROSE 5%-WATER 1000 ML 1,000 ML IV PRN ×3 (01:00→17:14)
[2019-07-01 04:53] LABS: INTERNATIONAL RATION (INR) 4.26; PROTHROMBIN TIME 42.1 SEC (11.4-15.4)
[2019-07-01 04:58] LABS: HEMOGLOBIN 11.4 g/dL (13.5-17.0); MEAN CORPUSCULAR HEMOGLOBIN 24.4 pg (27.0-33.4); MEAN CORPUSCULAR HGB CONC 31.6 g/dL (32.0-36.0); MEAN CORPUSCULAR VOLUME 77 fl (80-97); PLATELET COUNT 149 10^3/uL (150-450); RED BLOOD COUNT 4.67 10^6/uL (4.35-5.55); RED CELL DISTRIBUTION WIDTH 16.9 % (11.5-14.0); WHITE BLOOD COUNT 12.2 10^3/uL (4.0-10.5)
[2019-07-01 05:01] LABS: ABSOLUTE LYMPHOCYTES# (MANUAL) 0.2 10^3/uL (0.5-4.7); BAND NEUTROPHILS % (MANUAL) 1 % (3-5); BASOPHILS % (MANUAL) 0 % (0-2); EOSINOPHILS % (MANUAL) 2 % (0-6); LYMPHOCYTES % (MANUAL) 2 % (13-45); MONOCYTES % (MANUAL) 8 % (3-13); SEGMENTED NEUTROPHILS % (MAN) 87 % (42-78); TOTAL CELLS COUNTED 100
[2019-07-01 05:02] LABS: PLATELET CLUMPS PRESENT
[2019-07-01 05:03] LABS: ANISOCYTOSIS 1+; HYPOCHROMASIA SLIGHT; OVALOCYTES SLIGHT
[2019-07-01 05:04] LABS: POIKILOCYTOSIS SLIGHT
[2019-07-01 05:15] LABS: ANION GAP 7 (5-19); CALCIUM 8.6 mg/dL (8.4-10.2); CARBON DIOXIDE 31 mmol/L (22-30); CHLORIDE 116 mmol/L (98-107); GLUCOSE 153 mg/dL (75-110); POTASSIUM 3.1 mmol/L (3.6-5.0)
[2019-07-01] MEDS: PANTOPRAZOLE SODIUM 40 MG TABLET.DR PO SCH ×2 (05:23→17:12)
[2019-07-01 05:50] LABS: BLOOD UREA NITROGEN 75 mg/dL (7-20)
[2019-07-01] MEDS: POTASSI CL 20 MEQ/50 ML RIDER 20 MEQ/50 ML RTUPB IV SCH ×2 (07:31→09:27)
--- NOTE | 2019-07-01 09:15 | PDOC PROGRESS REPORT ---
Subjective Progress Note for:: 07/01/19 Subjective:: Patient is seen resting in bed sleeping. He awakens easily to verbal stimuli. He follows some commands. He does not answer questions at this time. He continues to have right-sided facial droop. He apparently was agitated overnight and pulled on his catheter causing some bleeding around the insertion site and hematuria. His INR had gone up to 6.24. He was given 1 unit of FFP and 2.5 mg of AquaMEPHYTON subcutaneous. INR today is down to 4.2. Urine is slightly pink in color. Otherwise clear there is no clots. Continues to have significant right-sided weakness. Presently no family is at the bedside. Review of systems are unobtainable due to his tenuous mentation. Reason For Visit: STROKE Physical Exam Vital Signs: Temp Pulse Resp BP Pulse Ox 97.9 F 70 20 134/66 H 91 L 07/01/19 07:38 07/01/19 07:38 07/01/19 07:38 07/01/19 07:38 07/01/19 07:38 Intake & Output 06/30/19 07/01/19 07/02/19 06:59 06:59 06:59 Intake Total 100 2877 Output Total 1075 Balance 100 1802 Weight 84 kg 83.8 kg General appearance: PRESENT: no acute distress, well-developed, well-nourished Head exam: PRESENT: atraumatic, normocephalic Eye exam: PRESENT: conjunctiva pink, EOMI, PERRLA. ABSENT: scleral icterus Ear exam: PRESENT: normal external ear exam Mouth exam: PRESENT: moist, neck supple, tongue midline Neck exam: ABSENT: carotid bruit, JVD, lymphadenopathy, thyromegaly Respiratory exam: PRESENT: decreased breath sounds - Bilateral bases, symmetrical, unlabored Cardiovascular exam: PRESENT: irregular rhythm, +S1, +S2, systolic murmur - 2/6. ABSENT: diastolic murmur, rubs Pulses: PRESENT: normal carotid pulses, normal radial pulses Vascular exam: PRESENT: normal capillary refill GI/Abdominal exam: PRESENT: normal bowel sounds, soft. ABSENT: distended, guarding, mass, organolmegaly, rebound, tenderness Rectal exam: PRESENT: deferred Extremities exam: ABSENT: calf tenderness, clubbing, pedal edema Musculoskeletal exam: PRESENT: tenderness - 3/5 right sided extremity strength. To left lower 5, other Neurological exam: PRESENT: alert, altered, awake, oriented to person, abnormal gait, CN II-XII grossly intact, aphasic Psychiatric exam: PRESENT: appropriate affect, normal mood. ABSENT: homicidal ideation, suicidal ideation Skin exam: PRESENT: dry, intact, warm. ABSENT: cyanosis, rash Results Laboratory Results: 07/01/19 04:34 07/01/19 04:34 06/30/19 06/30/19 06/30/19 13:10 21:05 21:07 WBC 11.1 H RBC 4.88 Hgb 11.7 L Hct 37.1 L MCV 76 L MCH 23.9 L MCHC 31.5 L RDW 16.8 H Plt Count 174 Seg Neutrophils % Not Reportable Lymphocytes % Not Reportable Monocytes % Not Reportable Eosinophils % Not Reportable Basophils % Not Reportable Absolute Neutrophils Not Reportable Absolute Lymphocytes Not Reportable Absolute Monocytes Not Reportable Absolute Eosinophils Not Reportable Absolute Basophils Not Reportable Sodium Potassium Chloride Carbon Dioxide Anion Gap BUN Creatinine Est GFR ( Amer) Est GFR (Non-Af Amer) Glucose Calcium Magnesium Urine Color YELLOW YELLOW Urine Appearance CLOUDY SLIGHTLY-CLOUDY Urine pH 5.0 5.0 Ur Specific [place] 1.014 1.015 Urine Protein 30 H 30 H Urine Glucose (UA) NEGATIVE NEGATIVE Urine Ketones NEGATIVE NEGATIVE Urine Blood LARGE H LARGE H Urine Nitrite NEGATIVE NEGATIVE Ur Leukocyte Esterase TRACE H NEGATIVE Urine WBC (Auto) 2 6 Urine RBC (Auto) >182 >182 Blood Type 06/30/19 07/01/19 07/01/19 21:07 04:34 04:34 WBC 12.2 H RBC 4.67 Hgb 11.4 L Hct 36.0 L MCV 77 L MCH 24.4 L MCHC 31.6 L RDW 16.9 H Plt Count 149 L Seg Neutrophils % Not Reportable Lymphocytes % Not Reportable Monocytes % Not Reportable Eosinophils % Not Reportable Basophils % Not Reportable Absolute Neutrophils Not Reportable Absolute Lymphocytes Not Reportable Absolute Monocytes Not Reportable Absolute Eosinophils Not Reportable Absolute Basophils Not Reportable Sodium 154.0 H Potassium 3.1 L Chloride 116 H Carbon Dioxide 31 H Anion Gap 7 BUN 75 H D Creatinine 1.96 H Est GFR ( Amer) 40 L Est GFR (Non-Af Amer) 33 L Glucose 153 H Calcium 8.6 Magnesium 2.4 H Urine Color Urine Appearance Urine pH Ur Specific [place] Urine Protein Urine Glucose (UA) Urine Ketones Urine Blood Urine Nitrite Ur Leukocyte Esterase Urine WBC (Auto) Urine RBC (Auto) Blood Type O POSITIVE 06/24/19 06/24/19 06/24/19 10:20 13:24 13:24 Creatine Kinase 174 H CK-MB (CK-2) 3.50 Troponin I 0.084 0.122 NT-Pro-B Natriuret Pep 06/24/19 06/24/19 06/25/19 18:50 18:50 00:58 Creatine Kinase 173 H 233 H CK-MB (CK-2) 3.63 Troponin I 0.122 NT-Pro-B Natriuret Pep 06/25/19 06/25/19 00:58 06:15 Creatine Kinase CK-MB (CK-2) 3.50 Troponin I 0.148 NT-Pro-B Natriuret Pep 7250 H Impressions: Head CTA 06/24/19 00:00 IMPRESSION: NO CTA EVIDENCE OF STENOSIS OR ANEURYSM OF THE [place]. Neck CTA 06/24/19 00:00 IMPRESSION: No evidence of carotid artery stenosis or dissection. Cervical Spine CT 06/24/19 10:07 IMPRESSION: CHRONIC DEGENERATIVE CHANGES. NO ACUTE FINDINGS. Head CT 06/24/19 10:07 IMPRESSION: CHRONIC CHANGES OF ATROPHY AND MICROVASCULAR ISCHEMIA. NO ACUTE PROCESS. EVIDENCE OF ACUTE STROKE: NO. Forearm X-Ray 06/24/19 11:24 IMPRESSION: Possible nondisplaced fracture of the distal radius. Consider radiographs of the wrist. Head MRI 06/24/19 12:04 IMPRESSION: ATROPHY AND CHRONIC MICRO-VASCULAR ISCHEMIC CHANGES. Positive for restricted diffusion internal capsule on the left. Acute infa rction. EVIDENCE OF ACUTE STROKE: YES. LEFT MCA. Wrist X-Ray 06/24/19 12:23 IMPRESSION: Degenerative arthritis of the right wrist. Modified Barium Swallow 06/28/19 00:00 IMPRESSION: ASPIRATION WITH THIN BARIUM. PLEASE SEE SPEECH PATHOLOGIST REPORT FOR OTHER FINDINGS AND RECOMMENDATIONS. Assessment and Plan - Diagnosis (1) Acute kidney injury Is this a current diagnosis for this admission?: Yes Plan: Will hold lasix po bid and lisinopril. He has had poor oral intake due to dysphagia and was being diuresed. Started on IV hydration and had initial increase in his BUN to 93 with a creatinine of 2.8, he was found to have 950 cc residual urine. He is having overflow incontinence. Mob[place] catheter was placed. BUN is down to 73 creatinines 1.96 today. We will continue IV hydration. Unfortunately he became agitated last night and pulled on his catheter. He had bleeding around the meatus and some hematuria. He was started on continuous bladder irrigation overnight. Urine is clear now there is just a pale pink t kraig to it. We will continue Mobley he has been started on Flomax. I feel he will probably need to keep the catheter in at least for a week and follow-up with urology. He will continue to hold nephrotoxic medications and dosages. Discussed with sons. We will have to hold rehab until at least Tuesday. (2) Hypernatremia Is this a current diagnosis for this admission?: Yes Plan: As above in number 1. We will continue D5W. (3) Atrial fibrillation Qualifiers: Atrial fibrillation type: chronic Qualified Code(s): I48.2 - Chronic atrial fibrillation Is this a current diagnosis for this admission?: No Plan: We will continue metoprolol. Will hold warfarin tonight due to INR being elevated at 4.1 Will recheck in the a.m. (4) CVA (cerebral vascular accident) Qualifiers: CVA mechanism: embolism Precerebral and cerebral artery: middle cerebral artery Laterality of affected vessel: left Qualified Code(s): I63.412 - Cerebral infarction due to embolism of left middle cerebral artery Is this a current diagnosis for this admission?: Yes Plan: Patient was admitted with right-sided weakness MRI of the brain shows acute infarction in the left side of the internal capsule cerebral artery. PT OT and speech consulted. Patient initially was able to ambulate in the hallway the first 2 days. He has declined since that time as far as his functional capacity. He need aggressive rehab post discharge. (5) Contusion of right arm Qualifiers: Encounter type: initial encounter Qualified Code(s): S40.021A - Contusion of right upper arm, initial encounter Is this a current diagnosis for this admission?: Yes (6) HTN (hypertension) Is this a current diagnosis for this admission?: No Plan: He is normotensive on current doses of medications. Will continue to hold lisinopril due to bump in BUN/CR likely due to bid lasix and poor intake of liquids (7) Altered mental status, unspecified Qualifiers: Altered mental status type: unspecified Qualified Code(s): R41.82 - Altered mental status, unspecified Is this a current diagnosis for this admission?: Yes Plan: 06/27/2019-patient admitted with altered mental status and confusion most likely secondary to new onset CVA. PT consult was done rehab consult was done speech consult was done. He is on nectar thickened and pured diet. Continue to need aggressive PT, OT and speech therapy. (8) Hypokalemia Is this a current diagnosis for this admission?: Yes Plan: Will replete today and monitor. - Time Time Spent with patient: 25-34 minutes Total Critical Time (Minutes): 30 Medications reviewed and adjusted accordingly: Yes Anticipated discharge: Acute Rehab Within: within 48 hours - Inpatient Certification Based on my medical assessment, after consideration of the patient's comorbidities, presenting symptoms, or acuity I expect that the services needed warrant INPATIENT care.: Yes I certify that my determination is in accordance with my understanding of Medicare's requirements for reasonable and necessary INPATIENT services [42 CFR 412.3e].: Yes Medical Necessity: Need Close Monitoring Due to Risk of Patient Decompensation, Need For IV Fluids, Need For Continuous Telemetry Monitoring, Need for Neurological Checks, Risk of Complication if Not Cared For in Hospital Post Hospital Care: D/C Pump Installation [employer] Documentation
[2019-07-01] MEDS: DIGOXIN 0.125 MG TABLET PO SCH (09:27)
[2019-07-01] MEDS: AMLODIPINE BESYLATE 10 MG TABLET PO SCH (09:27)
[2019-07-01] MEDS: FAMOTIDINE 20 MG TABLET PO SCH ×2 (09:27→21:31)
[2019-07-01] MEDS: ATENOLOL 50 MG TABLET PO SCH (09:27)
[2019-07-01] MEDS: ASPIRIN 81 MG TABLET, ENT COATED PO SCH (09:27)
[2019-07-01] MEDS: TAMSULOSIN HCL 0.4 MG CAP.SR.24H PO SCH (17:12)
[2019-07-01] MEDS: CEFTRIAXONE SODIUM 1,000 MG in DEXTROSE 5%-WATER 50 ML IV SCH (17:12)
[2019-07-01] MEDS: SIMVASTATIN 10 MG TABLET PO SCH (21:31)
[2019-07-02] MEDS: DEXTROSE 5%-WATER 1000 ML 1,000 ML IV PRN ×2 (01:30→15:01)
[2019-07-02] MEDS: FAMOTIDINE 20 MG TABLET PO SCH (01:42)
[2019-07-02] MEDS: SIMVASTATIN 10 MG TABLET PO SCH ×2 (01:43→22:10)
[2019-07-02 06:23] LABS: ABSOLUTE EOSINOPHILS # (AUTO) 0.2 10^3/uL (0.0-0.6); ABSOLUTE LYMPHOCYTES (AUTO) 0.6 10^3/uL (0.5-4.7); ABSOLUTE MONOCYTES (AUTO) 1.2 10^3/uL (0.1-1.4); ABSOLUTE NEUT (AUTO) 9.3 10^3/uL (1.7-8.2); BASOPHILS % (AUTO) 0.4 % (0-2); EOSINOPHILS % (AUTO) 1.5 % (0-6); HEMATOCRIT 34.9 % (37.9-51.0); LYMPHOCYTES % (AUTO) 5.6 % (13-45); MEAN CORPUSCULAR HEMOGLOBIN 24.2 pg (27.0-33.4); MEAN CORPUSCULAR HGB CONC 31.5 g/dL (32.0-36.0); MEAN CORPUSCULAR VOLUME 77 fl (80-97); MONOCYTES % (AUTO) 10.8 % (3-13); PLATELET COUNT 185 10^3/uL (150-450); RED BLOOD COUNT 4.55 10^6/uL (4.35-5.55); RED CELL DISTRIBUTION WIDTH 17.1 % (11.5-14.0); SEGMENTED NEUTROPHILS % (AUTO) 81.7 % (42-78); TOTAL CELLS COUNTED % (AUTO) 100 %; WHITE BLOOD COUNT 11.4 10^3/uL (4.0-10.5)
[2019-07-02 06:34] LABS: PROTHROMBIN TIME 22.1 SEC (11.4-15.4)
[2019-07-02 06:45] LABS: ANION GAP 8 (5-19); BLOOD UREA NITROGEN 61 mg/dL (7-20); CALCIUM 8.4 mg/dL (8.4-10.2); CARBON DIOXIDE 31 mmol/L (22-30); CHLORIDE 112 mmol/L (98-107); DIGOXIN 0.95 ng/mL (0.8-2.0); GLUCOSE 187 mg/dL (75-110); POTASSIUM 3.3 mmol/L (3.6-5.0)
[2019-07-02] MEDS ORDERED: POTASSI CL 20 MEQ/50 ML RIDER 20 MEQ/50 ML RTUPB IV ONE (07:23)
[2019-07-02] MEDS: PANTOPRAZOLE SODIUM 40 MG TABLET.DR PO SCH ×2 (07:37→18:06)
--- NOTE | 2019-07-02 09:15 | RADIOLOGY REPORT (SQ) ---
EXAM DESCRIPTION: CHEST SINGLE VIEW COMPLETED DATE/TIME: 07/02/2019 7:18 am REASON FOR STUDY: Hypoxia COMPARISON: None. EXAM PARAMETERS: NUMBER OF VIEWS: One view. TECHNIQUE: Single frontal radiographic view of the chest acquired. RADIATION DOSE: NA LIMITATIONS: None. FINDINGS: LUNGS AND PLEURA: Mild pulmonary edema. MEDIASTINUM AND HILAR STRUCTURES: No masses. Contour normal. HEART AND VASCULAR STRUCTURES: Cardiomegaly. BONES: No acute findings. HARDWARE: None in the chest. OTHER: No other significant finding. IMPRESSION: Cardiomegaly with mild pulmonary edema. TECHNICAL DOCUMENTATION: JOB ID: [id number] [employer]- All Rights Reserved Reading location - IP/workstation name: [email or web address]
[2019-07-02] MEDS ORDERED: DEXTROSE 40% GEL 15 GM TUBE PO PRN ×2 (13:29)
[2019-07-02] MEDS ORDERED: DEXTROSE 50%-WATER 25 GM/50 ML DISP.SYRIN IV PRN ×2 (13:29)
[2019-07-02] MEDS ORDERED: GLUCAGON,HUMAN RECOMB 1 MG INJ IM PRN (13:29)
[2019-07-02] MEDS ORDERED: METOPROLOL TARTRATE PF/INJ 5 MG/5 ML SDV IV PRN (13:32)
[2019-07-02] MEDS: ATENOLOL 50 MG TABLET PO SCH (15:01)
[2019-07-02] MEDS: ASPIRIN 81 MG TABLET, ENT COATED PO SCH (15:02)
[2019-07-02] MEDS: AMLODIPINE BESYLATE 10 MG TABLET PO SCH (15:02)
[2019-07-02] MEDS: DIGOXIN 0.125 MG TABLET PO SCH (15:02)
[2019-07-02] MEDS ORDERED: HALOPERIDOL LACTATE INJ 5 MG/1 ML VIAL IV PRN (15:26)
[2019-07-02] MEDS: TAMSULOSIN HCL 0.4 MG CAP.SR.24H PO SCH (18:06)
[2019-07-02] MEDS: INSULIN LISPRO 100 UNIT/ML 3 ML VIAL SUBCUT SCH (18:07)
--- NOTE | 2019-07-02 18:13 | PDOC PROGRESS REPORT ---
Subjective Progress Note for:: 07/02/19 Subjective:: Patient is seen resting in bed sleeping. He awakens easily to verbal stimuli. He follows some commands follows some commands. He does not answer questions at this time. He continues to have right-sided facial droop. He apparently choked on some pudding and his pills last evening. He now has a congested cough. He has had no fever. Nurses have not kept him n.p.o. since that time. We will have speech therapy evaluate him again this morning. His son is presently at the bedside we have discussed his morning lab work with him. He still in some mild acute kidney injury but much improved from previous last 2 days. Would like to continue IV hydration and so we can sort out his swallowing problem he will not be ready to go to rehab until then. Son verbalizes understanding with this. Review of systems are unobtainable due to patient's current mentation Reason For Visit: STROKE Physical Exam Vital Signs: Temp Pulse Resp BP Pulse Ox 97.5 F 101 H 20 99/54 L 95 07/02/19 12:04 07/02/19 12:04 07/02/19 12:04 07/02/19 12:04 07/02/19 12:04 Intake & Output 07/01/19 07/02/19 07/03/19 06:59 06:59 06:59 Intake Total 2877 2158 Output Total 1075 1500 7900 Balance 1802 658 -7900 Weight 83.8 kg 83 kg General appearance: PRESENT: no acute distress, well-developed, well-nourished, other - Right sided facial droop. Head exam: PRESENT: atraumatic, normocephalic Eye exam: PRESENT: conjunctiva pink, EOMI, PERRLA. ABSENT: scleral icterus Ear exam: PRESENT: normal external ear exam Mouth exam: PRESENT: moist, tongue midline Neck exam: ABSENT: carotid bruit, JVD, lymphadenopathy, thyromegaly Respiratory exam: PRESENT: rhonchi - Coarse bilateral rhonchi. Improved with cough., symmetrical, unlabored Cardiovascular exam: PRESENT: irregular rhythm, +S1, +S2. ABSENT: diastolic murmur, rubs Pulses: PRESENT: normal carotid pulses, normal radial pulses Vascular exam: PRESENT: normal capillary refill GI/Abdominal exam: PRESENT: normal bowel sounds, soft. ABSENT: distended, guarding, mass, organolmegaly, rebound, tenderness Rectal exam: PRESENT: deferred Gentrourinary exam: PRESENT: indwelling catheter, other - Patient continues to have pink-tinged urine with occasional small flecks of blood clots. INR today is improved to 1.9. We will hold anticoagulation at this time. Until hematuria is resolved. Extremities exam: PRESENT: full ROM. ABSENT: calf tenderness, clubbing, pedal edema Musculoskeletal exam: PRESENT: other - Right side extremities 2/5 compared to the left 5/5 Neurological exam: PRESENT: alert, altered, awake, motor sensory deficit - Right sided weakness with 2/5 muscle strength compared to left. He is now tracking to the right where he was not., other Psychiatric exam: PRESENT: agitated, flat affect - Patient waxes between agitation and being somnolent. Focused psych exam: PRESENT: restlessness Skin exam: PRESENT: dry, warm Results Laboratory Results: 07/02/19 05:45 07/02/19 05:45 07/02/19 07/02/19 05:45 05:45 WBC 11.4 H RBC 4.55 Hgb 11.0 L Hct 34.9 L MCV 77 L MCH 24.2 L MCHC 31.5 L RDW 17.1 H Plt Count 185 Seg Neutrophils % 81.7 H Lymphocytes % 5.6 L Monocytes % 10.8 Eosinophils % 1.5 Basophils % 0.4 Absolute Neutrophils 9.3 H Absolute Lymphocytes 0.6 Absolute Monocytes 1.2 Absolute Eosinophils 0.2 Absolute Basophils 0.0 Sodium 150.6 H Potassium 3.3 L Chloride 112 H Carbon Dioxide 31 H Anion Gap 8 BUN 61 H Creatinine 1.71 H Est GFR ( Amer) 47 L Est GFR (Non-Af Amer) 39 L Glucose 187 H Calcium 8.4 Magnesium 2.0 Prostate Specific Ag 6.290 H 06/30/19 13:10 Catheterized Urine Urine Culture - Final NO GROWTH 2 DAYS 06/24/19 06/24/19 06/24/19 10:20 13:24 13:24 Creatine Kinase 174 H CK-MB (CK-2) 3.50 Troponin I 0.084 0.122 NT-Pro-B Natriuret Pep 06/24/19 06/24/19 06/25/19 18:50 18:50 00:58 Creatine Kinase 173 H 233 H CK-MB (CK-2) 3.63 Troponin I 0.122 NT-Pro-B Natriuret Pep 06/25/19 06/25/19 00:58 06:15 Creatine Kinase CK-MB (CK-2) 3.50 Troponin I 0.148 NT-Pro-B Natriuret Pep 7250 H Impressions: Head CTA 06/24/19 00:00 IMPRESSION: NO CTA EVIDENCE OF STENOSIS OR ANEURYSM OF THE [place]. Neck CTA 06/24/19 00:00 IMPRESSION: No evidence of carotid artery stenosis or dissection. Cervical Spine CT 06/24/19 10:07 IMPRESSION: CHRONIC DEGENERATIVE CHANGES. NO ACUTE FINDINGS. Head CT 06/24/19 10:07 IMPRESSION: CHRONIC CHANGES OF ATROPHY AND MICROVASCULAR ISCHEMIA. NO ACUTE PROCESS. EVIDENCE OF ACUTE STROKE: NO. Forearm X-Ray 06/24/19 11:24 IMPRESSION: Possible nondisplaced fracture of the distal radius. Consider radiographs of the wrist. Head MRI 06/24/19 12:04 IMPRESSION: ATROPHY AND CHRONIC MICRO-VASCULAR ISCHEMIC CHANGES. Positive for restricted diffusion internal capsule on the left. Acute infarction. EVIDENCE OF ACUTE STROKE: YES. LEFT MCA. Wrist X-Ray 06/24/19 12:23 IMPRESSION: Degenerative arthritis of the right wrist. Modified Barium Swallow 06/28/19 00:00 IMPRESSION: ASPIRATION WITH THIN BARIUM. PLEASE SEE SPEECH PATHOLOGIST REPORT FOR OTHER FINDINGS AND RECOMMENDATIONS. Chest X-Ray 07/02/19 07:00 IMPRESSION: Cardiomegaly with mild pulmonary edema. 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 NR 1.9 today. He continues to have some he maturia. Will resume warfarin tomorrow if hematuria resolves. Will recheck in the a.m. (5) Hypernatremia Is this a current diagnosis for this admission?: Yes Plan: As above in number 1. We will continue D5W. 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 PT OT and speech consulted. Patient initially was able to ambulate in the hallway the first 2 days. He has declined since that time as far as his functional capacity. He need aggressive rehab post discharge. (7) Contusion of right arm Qualifiers: Encounter type: initial encounter Qualified Code(s): S40.021A - Contusion of right upper arm, initial encounter Is this a current diagnosis for this admission?: Yes (8) HTN (hypertension) Is this a current diagnosis for this admission?: No Plan: He is normotensive on current doses of medications. Will continue to hold lisinopril due to bump in BUN/CR likely due to bid lasix and poor intake of liquids (9) Altered mental status, unspecified Qualifiers: Altered mental status type: unspecified Qualified Code(s): R41.82 - Altered mental status, unspecified Is this a current diagnosis for this admission?: Yes Plan: 06/27/2019-patient admitted with altered mental status and confusion most likely secondary to new onset CVA. PT consult was done rehab consult was done speech consult was done. Continue to need aggressive PT, OT and speech therapy. (10) Hypokalemia Is this a current diagnosis for this admission?: Yes Plan: Will replete today and monitor. (11) Coagulopathy Is this a current diagnosis for this admission?: Yes (12) Elevated PSA Is this a current diagnosis for this admission?: Yes Plan: PSA checked this morning is 6.2. Patient will need to see urology post discharge we will continue [place] until he can be seen. He started Flomax 2 days ago. He had urinary retention at that time over a liter with overflow incontinence - Time Time Spent with patient: 35 or more minutes Total Critical Time (Minutes): 30 Medications reviewed and adjusted accordingly: Yes - Inpatient Certification Based on my medical assessment, after consideration of the patient's comorbidities, presenting symptoms, or acuity I expect that the services needed warrant INPATIENT care.: Yes I certify that my determination is in accordance with my understanding of Medicare's requirements for reasonable and necessary INPATIENT services [42 CFR 412.3e].: Yes Medical Necessity: Significant Comorbidiites Make Outpatient Treatment Too Risky, Need for Neurological Checks
[2019-07-02] MEDS: FAMOTIDINE INJ/PF 20 MG/2 ML SDV IV SCH (21:05)
[2019-07-02] MEDS ORDERED: ENOXAPARIN SODIUM INJ 80 MG/0.8 ML DISP.SYRIN SUBCUT SCH (22:00)
[2019-07-02] MEDS ORDERED: WARFARIN SODIUM 3 MG TABLET PO SCH (22:00)
[2019-07-03] MEDS: INSULIN LISPRO 100 UNIT/ML 3 ML VIAL SUBCUT SCH ×4 (01:16→17:06)
[2019-07-03 05:21] LABS: ABSOLUTE BASOPHILS # (AUTO) 0.1 10^3/uL (0.0-0.2); ABSOLUTE EOSINOPHILS # (AUTO) 0.2 10^3/uL (0.0-0.6); ABSOLUTE LYMPHOCYTES (AUTO) 0.6 10^3/uL (0.5-4.7); ABSOLUTE MONOCYTES (AUTO) 0.9 10^3/uL (0.1-1.4); ABSOLUTE NEUT (AUTO) 8.5 10^3/uL (1.7-8.2); BASOPHILS % (AUTO) 0.5 % (0-2); EOSINOPHILS % (AUTO) 2.3 % (0-6); HEMATOCRIT 33.8 % (37.9-51.0); HEMOGLOBIN 10.8 g/dL (13.5-17.0); LYMPHOCYTES % (AUTO) 5.6 % (13-45); MEAN CORPUSCULAR HEMOGLOBIN 24.4 pg (27.0-33.4); MEAN CORPUSCULAR VOLUME 76 fl (80-97); PLATELET COUNT 193 10^3/uL (150-450); RED BLOOD COUNT 4.43 10^6/uL (4.35-5.55); SEGMENTED NEUTROPHILS % (AUTO) 82.6 % (42-78); TOTAL CELLS COUNTED % (AUTO) 100 %; WHITE BLOOD COUNT 10.2 10^3/uL (4.0-10.5)
[2019-07-03 05:25] LABS: INTERNATIONAL RATION (INR) 1.31; PROTHROMBIN TIME 16.4 SEC (11.4-15.4)
[2019-07-03 05:46] LABS: ANION GAP 9 (5-19); BLOOD UREA NITROGEN 50 mg/dL (7-20); CALCIUM 8.5 mg/dL (8.4-10.2); CARBON DIOXIDE 28 mmol/L (22-30); CHLORIDE 110 mmol/L (98-107); GLUCOSE 171 mg/dL (75-110); POTASSIUM 3.4 mmol/L (3.6-5.0)
[2019-07-03] MEDS: PANTOPRAZOLE SODIUM 40 MG TABLET.DR PO SCH ×2 (06:17→17:06)
[2019-07-03] MEDS: DIGOXIN 0.125 MG TABLET PO SCH (08:59)
[2019-07-03] MEDS: AMLODIPINE BESYLATE 10 MG TABLET PO SCH (08:59)
[2019-07-03] MEDS: ASPIRIN 81 MG TABLET, ENT COATED PO SCH (08:59)
[2019-07-03] MEDS: ATENOLOL 50 MG TABLET PO SCH (09:00)
[2019-07-03] MEDS: FAMOTIDINE INJ/PF 20 MG/2 ML SDV IV SCH ×2 (09:10→22:04)
[2019-07-03] MEDS: DEXTROSE 5%-WATER 1000 ML 1,000 ML IV PRN ×2 (09:10→23:43)
[2019-07-03] MEDS: TAMSULOSIN HCL 0.4 MG CAP.SR.24H PO SCH (17:06)
[2019-07-03] MEDS: HALOPERIDOL LACTATE INJ 5 MG/1 ML VIAL IV PRN ×2 (17:06→23:42)
[2019-07-03] MEDS: SIMVASTATIN 10 MG TABLET PO SCH (21:54)
[2019-07-04 04:49] LABS: HEMATOCRIT 29.7 % (37.9-51.0); HEMOGLOBIN 9.6 g/dL (13.5-17.0); MEAN CORPUSCULAR HEMOGLOBIN 24.6 pg (27.0-33.4); MEAN CORPUSCULAR HGB CONC 32.4 g/dL (32.0-36.0); MEAN CORPUSCULAR VOLUME 76 fl (80-97); PLATELET COUNT 170 10^3/uL (150-450); RED BLOOD COUNT 3.92 10^6/uL (4.35-5.55); RED CELL DISTRIBUTION WIDTH 16.4 % (11.5-14.0); WHITE BLOOD COUNT 9.4 10^3/uL (4.0-10.5)
[2019-07-04 04:55] LABS: INTERNATIONAL RATION (INR) 1.26; PROTHROMBIN TIME 15.9 SEC (11.4-15.4)
[2019-07-04] MEDS: PANTOPRAZOLE SODIUM 40 MG TABLET.DR PO SCH ×2 (06:12→17:03)
[2019-07-04] MEDS: INSULIN LISPRO 100 UNIT/ML 3 ML VIAL SUBCUT SCH ×3 (06:13→17:03)
[2019-07-04] MEDS: ATENOLOL 50 MG TABLET PO SCH (09:42)
[2019-07-04] MEDS: AMLODIPINE BESYLATE 10 MG TABLET PO SCH (09:42)
[2019-07-04] MEDS: DIGOXIN 0.125 MG TABLET PO SCH (09:42)
[2019-07-04] MEDS: ASPIRIN 81 MG TABLET, ENT COATED PO SCH (09:42)
[2019-07-04] MEDS: FAMOTIDINE INJ/PF 20 MG/2 ML SDV IV SCH ×2 (09:45→21:29)
[2019-07-04] MEDS ORDERED: PROPOFOL INJ 200 MG/20 ML VIAL IV ONE (12:29)
[2019-07-04] MEDS ORDERED: METRONIDAZOLE 500 MG/NS RTU 500 MG/100 ML RTUPB IV ONE (12:36)
[2019-07-04] MEDS ORDERED: CEFAZOLIN INJ 1 GM VIAL ONE (12:36)
--- NOTE | 2019-07-04 13:31 | PDOC PROGRESS REPORT ---
Subjective Progress Note for:: 07/03/19 Subjective:: The patient is resting in bed. He appears somewhat flushed. He does make eye contact but with limited interaction. Reason For Visit: STROKE Physical Exam Vital Signs: Temp Pulse Resp BP Pulse Ox 97.5 F 61 16 114/55 L 96 07/03/19 11:36 07/03/19 11:36 07/03/19 11:36 07/03/19 11:36 07/03/19 11:36 Intake & Output 07/02/19 07/03/19 07/04/19 06:59 06:59 06:59 Intake Total 2158 2050 0 Output Total 1500 53950 275 Balance 658 -9595 -275 Weight 83 kg 85.7 kg General appearance: PRESENT: mild distress, well-developed Head exam: PRESENT: atraumatic, normocephalic Respiratory exam: PRESENT: clear to auscultation gurpreet - Anteriorly, decreased breath sounds - At bases, symmetrical, unlabored. ABSENT: rales, rhonchi, tachypnea, wheezes Cardiovascular exam: PRESENT: RRR, +S1, +S2. ABSENT: diastolic murmur, systolic murmur GI/Abdominal exam: PRESENT: diminished bowel sounds, soft. ABSENT: distended, tenderness Rectal exam: PRESENT: deferred Gentrourinary exam: PRESENT: indwelling catheter Neurological exam: PRESENT: alert, awake, oriented to person - Clearly responds to his name. Due to aphasia further examination unavailable., motor sensory deficit - Still with the right-sided weakness. Swallow is questionable at this time., aphasic Psychiatric exam: PRESENT: flat affect. ABSENT: agitated, anxious Skin exam: PRESENT: other - Some facial flushing noted. Results Laboratory Results: 07/03/19 04:50 07/03/19 04:50 07/03/19 07/03/19 04:50 04:50 WBC 10.2 RBC 4.43 Hgb 10.8 L Hct 33.8 L MCV 76 L MCH 24.4 L MCHC 32.0 RDW 17.0 H Plt Count 193 Seg Neutrophils % 82.6 H Lymphocytes % 5.6 L Monocytes % 9.0 Eosinophils % 2.3 Basophils % 0.5 Absolute Neutrophils 8.5 H Absolute Lymphocytes 0.6 Absolute Monocytes 0.9 Absolute Eosinophils 0.2 Absolute Basophils 0.1 Sodium 146.9 H Potassium 3.4 L Chloride 110 H Carbon Dioxide 28 Anion Gap 9 BUN 50 H Creatinine 1.37 H Est GFR ( Amer) > 60 Est GFR (Non-Af Amer) 50 L Glucose 171 H Calcium 8.5 06/24/19 06/24/19 06/24/19 10:20 13:24 13:24 Creatine Kinase 174 H CK-MB (CK-2) 3.50 Troponin I 0.084 0.122 NT-Pro-B Natriuret Pep 06/24/19 06/24/19 06/25/19 18:50 18:50 00:58 Creatine Kinase 173 H 233 H CK-MB (CK-2) 3.63 Troponin I 0.122 NT-Pro-B Natriuret Pep 06/25/19 06/25/19 00:58 06:15 Creatine Kinase CK-MB (CK-2) 3.50 Troponin I 0.148 NT-Pro-B Natriuret Pep 7250 H Impressions: Head CTA 06/24/19 00:00 IMPRESSION: NO CTA EVIDENCE OF STENOSIS OR ANEURYSM OF THE [place]. Neck CTA 06/24/19 00:00 IMPRESSION: No evidence of carotid artery stenosis or dissection. Cervical Spine CT 06/24/19 10:07 IMPRESSION: CHRONIC DEGENERATIVE CHANGES. NO ACUTE FINDINGS. Head CT 06/24/19 10:07 IMPRESSION: CHRONIC CHANGES OF ATROPHY AND MICROVASCULAR ISCHEMIA. NO ACUTE PROCESS. EVIDENCE OF ACUTE STROKE: NO. Forearm X-Ray 06/24/19 11:24 IMPRESSION: Possible nondisplaced fracture of the distal radius. Consider radiographs of the wrist. Head MRI 06/24/19 12:04 IMPRESSION: ATROPHY AND CHRONIC MICRO-VASCULAR ISCHEMIC CHANGES. Positive for restricted diffusion internal capsule on the left. Acute infarction. EVIDENCE OF ACUTE STROKE: YES. LEFT MCA. Wrist X-Ray 06/24/19 12:23 IMPRESSION: Degenerative arthritis of the right wrist. Modified Barium Swallow 06/28/19 00:00 IMPRESSION: ASPIRATION WITH THIN BARIUM. PLEASE SEE SPEECH PATHOLOGIST REPORT FOR OTHER FINDINGS AND RECOMMENDATIONS. Chest X-Ray 07/02/19 07:00 IMPRESSION: Cardiomegaly with mild pulmonary edema. Assessment and Plan - Diagnosis (1) CVA (cerebral vascular accident) Qualifiers: CVA mechanism: embolism Precerebral and cerebral artery: middle cerebral artery Laterality of affected vessel: left Qualified Code(s): I63.412 - Cerebral infarction due to embolism of left middle cerebral artery Is this a current diagnosis for this admission?: Yes Plan: The patient has right-sided weakness as a result of his stroke. He also has dysphagia and aphasia. Physical therapy continues to work with the patient. The goal would be for skilled facility after discharge. 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 The swallow is compromised. Currently on modified diet. We will continue to work with speech therapy. (3) Acute kidney injury Is this a current diagnosis for this admission?: Yes Plan: Serum creatinine is down to 1.37. We will continue to monitor. (4) Atrial fibrillation Qualifiers: Atrial fibrillation type: chronic Qualified Code(s): I48.2 - Chronic atrial fibrillation Is this a current diagnosis for this admission?: Yes Plan: Chronic atrial fibrillation. Rate is well controlled. Due to hematuria no anticoagulation at this time. (5) Hypernatremia Is this a current diagnosis for this admission?: Yes Plan: Serum sodium is slightly improved. We will continue to monitor. Fluid intake is marginal. Patient also getting continuous bladder irrigation. This may affect electrolytes. (6) Contusion of right arm Qualifiers: Encounter type: initial encounter Qualified Code(s): S40.021A - Contusion of right upper arm, initial encounter Is this a current diagnosis for this admission?: Yes Plan: Continue to monitor. Appears to be improving. (7) HTN (hypertension) Is this a current diagnosis for this admission?: Yes Plan: Continue current regimen. Blood pressure under reasonable control. (8) Hematuria Qualifiers: Hematuria type: gross Qualified Code(s): R31.0 - Gross hematuria Is this a current diagnosis for this admission?: Yes Plan: The patient is getting continuous bladder irrigation. Urine is still tea colored but appears to be improving. Holding anticoagulation at this time. (9) Hypokalemia Is this a current diagnosis for this admission?: Yes Plan: Serum potassium still marginal. Oral intake varies. We will recheck serum potassium. (10) Elevated PSA Is this a current diagnosis for this admission?: Yes Plan: Consider outpatient follow-up. At this age active intervention is unlikely. (11) Acute confusional state of cerebrovascular origin Is this a current diagnosis for this admission?: Yes Plan: The patient was noted to have an altered mental status on admission. I believe this is related to his stroke. - Time Time Spent with patient: 25-34 minutes Medications reviewed and adjusted accordingly: Yes Anticipated discharge: SNF
[2019-07-04] MEDS: HALOPERIDOL LACTATE INJ 5 MG/1 ML VIAL IV PRN (16:55)
[2019-07-04] MEDS ORDERED: GLYCOPYRROLATE INJ 0.4 MG/2 ML VIAL ONE (17:00)
[2019-07-04] MEDS: TAMSULOSIN HCL 0.4 MG CAP.SR.24H PO SCH (17:03)
[2019-07-04] MEDS: DEXTROSE 5%-WATER 1000 ML 1,000 ML IV PRN (18:23)
--- NOTE | 2019-07-04 18:26 | PDOC CONSULTATION ---
Consultation Consult Date: 07/04/19 Provider Consulted: SURGICAL SURGICALIST MD Consult reason:: dysphagia, stroke, need PEG History of Present Illness Admission Date/PCP: 06/24/19 12:42 Patient complains of: stroke with dysphagia History of Present Illness: WILLIAMS COX is a 79 year old male seen in consultation at the request of the hospitalist service. The patient has had a recent stroke and has difficulty swallowing. The patient has failed a swallowing study recently. The patient is accompanied by his son. The patient awakens to voice, but much of the history is relayed by the son. The patient will require a feeding tube for enteral nutrition. Currently, the patient is resting comfortably in bed. He nods yes and no to questions. He denies any other significant problems. Past Medical History Cardiac Medical History: Reports: Hypertension Denies: Coronary Artery Disease Pulmonary Medical History: Denies: Asthma, Bronchitis, Chronic Obstructive Pulmonary Disease (COPD), Pneumonia Neurological Medical History: Denies: Seizures Musculoskeltal Medical History: Denies: Arthritis Hematology: Denies: Anemia Past Surgical History Past Surgical History: Reports: Other - Hernia repair Social History Smoking Status: Never Smoker Frequency of Alcohol Use: None Hx Recreational Drug Use: No Drugs: None Hx Prescription Drug Abuse: No - Advance Directive Resuscitation Status: Full Code Family History Family History: Reviewed & Not Pertinent Parental Family History Reviewed: Yes Children Family History Reviewed: Yes Sibling(s) Family History Reviewed.: Yes Medication/Allergy Home Medications: Atenolol [Tenormin 50 mg Tablet] 50 mg PO DAILY 06/24/19 Atenolol [Tenormin 50 mg Tablet] 50 mg PO DAILY 06/24/19 Atorvastatin Calcium [Lipitor 20 mg Tablet] 20 mg PO DAILY 06/24/19 Digoxin [Lanoxin 0.25 mg Tablet] 0.25 mg PO DAILY 06/24/19 Furosemide [Lasix 40 mg Tablet] 40 mg PO DAILY 06/24/19 Lisinopril [Zestril] 20 mg PO DAILY 06/24/19 Warfarin Sodium [Coumadin 7.5 mg Tablet] 7.5 mg PO DAILY 06/24/19 Allergies/Adverse Reactions: No Known Drug Allergies Allergy (Mild, Verified 01/29/13 10:23) Review of Systems Constitutional: PRESENT: fatigue. ABSENT: anorexia, chills, fever(s), headache(s), night sweats Eyes: ABSENT: visual disturbances Ears: ABSENT: hearing changes Nose, Mouth, and Throat: ABSENT: sore throat Cardiovascular: ABSENT: chest pain Respiratory: ABSENT: cough Gastrointestinal: ABSENT: abdominal pain, bloating Genitourinary: PRESENT: other - catheter in-place Integumentary: ABSENT: pruritus, rash Neurological: PRESENT: confusion, lack of coordination, weakness, other - recent stroke Psychiatric: ABSENT: anxiety, depression Endocrine: ABSENT: cold intolerance, heat intolerance Hematologic/Lymphatic: ABSENT: lymphadenopathy Physical Exam Vital Signs: Temp Pulse Resp BP Pulse Ox 97.8 F 91 16 123/74 99 07/04/19 13:59 07/04/19 14:00 07/04/19 13:59 07/04/19 13:59 07/04/19 13:59 Intake & Output 07/03/19 07/04/19 07/05/19 06:59 06:59 06:59 Intake Total 2050 1000 1200 Output Total 89595 1325 200 Balance -9595 -325 1000 Weight 85.7 kg 86.3 kg General appearance: PRESENT: no acute distress, cooperative Head exam: PRESENT: atraumatic, normocephalic Eye exam: PRESENT: EOMI, PERRLA Mouth exam: PRESENT: moist, neck supple Neck exam: ABSENT: meningismus, tenderness, thyromegaly, tracheal deviation Respiratory exam: PRESENT: unlabored. ABSENT: chest wall tenderness, tachypnea, wheezes Cardiovascular exam: PRESENT: irregular rhythm Pulses: PRESENT: normal radial pulses Vascular exam: ABSENT: pallor GI/Abdominal exam: PRESENT: soft. ABSENT: distended, firm, guarding, tenderness Rectal exam: PRESENT: deferred Extremities exam: ABSENT: clubbing Musculoskeletal exam: ABSENT: deformity Neurological exam: PRESENT: alert, aphasic Psychiatric exam: ABSENT: agitated, anxious, depressed Skin exam: ABSENT: cyanosis, erythema, jaundice Results Laboratory Results: 07/04/19 04:27 07/03/19 04:50 07/04/19 04:27 WBC 9.4 RBC 3.92 L Hgb 9.6 L Hct 29.7 L MCV 76 L MCH 24.6 L MCHC 32.4 RDW 16.4 H Plt Count 170 06/24/19 06/24/19 06/24/19 10:20 13:24 13:24 Creatine Kinase 174 H CK-MB (CK-2) 3.50 Troponin I 0.084 0.122 NT-Pro-B Natriuret Pep 06/24/19 06/24/19 06/25/19 18:50 18:50 00:58 Creatine Kinase 173 H 233 H CK-MB (CK-2) 3.63 Troponin I 0.122 NT-Pro-B Natriuret Pep 06/25/19 06/25/19 00:58 06:15 Creatine Kinase CK-MB (CK-2) 3.50 Troponin I 0.148 NT-Pro-B Natriuret Pep 7250 H Impressions: Head CTA 06/24/19 00:00 IMPRESSION: NO CTA EVIDENCE OF STENOSIS OR ANEURYSM OF THE [place]. Neck CTA 06/24/19 00:00 IMPRESSION: No evidence of carotid artery stenosis or dissection. Cervical Spine CT 06/24/19 10:07 IMPRESSION: CHRONIC DEGENERATIVE CHANGES. NO ACUTE FINDINGS. Head CT 06/24/19 10:07 IMPRESSION: CHRONIC CHANGES OF ATROPHY AND MICROVASCULAR ISCHEMIA. NO ACUTE PROCESS. EVIDENCE OF ACUTE STROKE: NO. Forearm X-Ray 06/24/19 11:24 IMPRESSION: Possible nondisplaced fracture of the distal radius. Consider radiographs of the wrist. Head MRI 06/24/19 12:04 IMPRESSION: ATROPHY AND CHRONIC MICRO-VASCULAR ISCHEMIC CHANGES. Positive for restricted diffusion internal capsule on the left. Acute infarction. EVIDENCE OF ACUTE STROKE: YES. LEFT MCA. Wrist X-Ray 06/24/19 12:23 IMPRESSION: Degenerative arthritis of the right wrist. Modified Barium Swallow 06/28/19 00:00 IMPRESSION: ASPIRATION WITH THIN BARIUM. PLEASE SEE SPEECH PATHOLOGIST REPORT FOR OTHER FINDINGS AND RECOMMENDATIONS. Chest X-Ray 07/02/19 07:00 IMPRESSION: Cardiomegaly with mild pulmonary edema. Assessment & Plan - Diagnosis (1) Inanition Is this a current diagnosis for this admission?: Yes (2) CVA (cerebral vascular accident) Qualifiers: CVA mechanism: embolism Precerebral and cerebral artery: middle cerebral artery Laterality of affected vessel: left Qualified Code(s): I63.412 - Cerebral infarction due to embolism of left middle cerebral artery Is this a current diagnosis for this admission?: Yes (3) Dysphagia Qualifiers: Dysphagia type: unspecified Qualified Code(s): R13.10 - Dysphagia, unspecified Is this a current diagnosis for this admission?: Yes - Plan Summary Plan Summary: This is an 79-year-old male status post stroke. The patient has failed a swallowing study. He will require a feeding tube in order to receive enteral nutrition. I have discussed percutaneous endoscopic gastrostomy with the patient's son at length. I have discussed potential complications, including early tube dislodgment or damage to other internal structures. The patient's son is willing to have his father undergo the procedure. He believes that the benefits outweigh the risks. Informed consent was obtained, and all his questions were answered.
--- NOTE | 2019-07-04 18:37 | Operative Report ---
Nonrecallable Operative Report DATE OF SURGERY: 07/04/19 PREOPERATIVE DIAGNOSIS: 1. Inanition. 2. Dysphasia. 3. Stroke POSTOPERATIVE DIAGNOSIS: Same as above. OPERATION: Percutaneous endoscopic gastrostomy SURGEON: JOEL NAIK ANESTHESIA: LMAC TISSUE REMOVED OR ALTERED: None COMPLICATIONS: None apparent ESTIMATED BLOOD LOSS: Minimal PROCEDURE: Drains/implants: 20 [place] gastrostomy. Procedure in detail: After informed consent was obtained, the patient was brought into the operating room and laid in the supine position. The endoscope was passed down the oropharynx, down the esophagus, and into the stomach. The stomach was insufflated with air. An appropriate place for gastrostomy placement was determined using one-to-one ballottement and transillumination. Once the area was chosen, the abdomen was prepped and draped in a normal sterile fashion. An incision was created in the abdominal skin using an 11 blade scalpel. The needle was then percutaneously inserted through the anterior abdominal wall and into the stomach. This was confirmed under direct endoscopic visualization. A wire was placed through the needle. The wire was grasped with a snare and pulled out through the oropharynx. The PEG tube was attached to the wire. The wire was then pulled down the esophagus. The PEG tube was pulled through the anterior abdominal wall, leaving the bumper against the mucosa of the stomach. The external flange was placed at approximately 3 cm at the skin. The PEG tube was then assembled, an abdominal binder was placed, and the procedure was concluded. All sponge, instrument, and needle counts were correct. Condition: Fair.
[2019-07-04] MEDS: SIMVASTATIN 10 MG TABLET PO SCH (21:22)
[2019-07-04] MEDS ORDERED: DIGOXIN INJ 0.5 MG/2 ML AMPULE IV ONE (21:30)
[2019-07-05] MEDS: INSULIN LISPRO 100 UNIT/ML 3 ML VIAL SUBCUT SCH ×4 (00:59→18:13)
[2019-07-05] MEDS: PANTOPRAZOLE SODIUM 40 MG TABLET.DR PO SCH ×2 (05:36→18:14)
[2019-07-05 06:03] LABS: INTERNATIONAL RATION (INR) 1.25; PROTHROMBIN TIME 15.8 SEC (11.4-15.4)
[2019-07-05] MEDS: AMLODIPINE BESYLATE 10 MG TABLET PO SCH (14:20)
[2019-07-05] MEDS: ASPIRIN 81 MG TABLET, ENT COATED PO SCH (14:20)
[2019-07-05] MEDS: ATENOLOL 50 MG TABLET PO SCH (14:20)
[2019-07-05] MEDS: FAMOTIDINE INJ/PF 20 MG/2 ML SDV IV SCH ×2 (14:22→21:14)
[2019-07-05] MEDS ORDERED: ACETAMINOPHEN 325 MG TABLET PEG PRN (18:00)
[2019-07-05] MEDS: TAMSULOSIN HCL 0.4 MG CAP.SR.24H PO SCH (18:15)
[2019-07-05] MEDS: SIMVASTATIN 10 MG TABLET PEG SCH (21:14)
[2019-07-06] MEDS: INSULIN LISPRO 100 UNIT/ML 3 ML VIAL SUBCUT SCH ×4 (00:59→17:03)
[2019-07-06 06:21] LABS: HEMATOCRIT 30.9 % (37.9-51.0); HEMOGLOBIN 9.9 g/dL (13.5-17.0); INTERNATIONAL RATION (INR) 1.15; MEAN CORPUSCULAR HEMOGLOBIN 24.4 pg (27.0-33.4); MEAN CORPUSCULAR VOLUME 76 fl (80-97); PLATELET COUNT 237 10^3/uL (150-450); PROTHROMBIN TIME 14.8 SEC (11.4-15.4); RED BLOOD COUNT 4.05 10^6/uL (4.35-5.55); RED CELL DISTRIBUTION WIDTH 16.7 % (11.5-14.0); WHITE BLOOD COUNT 11.6 10^3/uL (4.0-10.5)
[2019-07-06 07:07] LABS: ALBUMIN 2.7 g/dL (3.5-5.0); ALKALINE PHOSPHATASE 59 U/L (38-126); ANION GAP 7 (5-19); ASPARTATE AMINO TRANSFERASE 48 U/L (17-59); BILIRUBIN,DIRECT 0.3 mg/dL (0.0-0.4); BILIRUBIN,TOTAL 0.9 mg/dL (0.2-1.3); BLOOD UREA NITROGEN 26 mg/dL (7-20); CALCIUM 8.2 mg/dL (8.4-10.2); CARBON DIOXIDE 29 mmol/L (22-30); CHLORIDE 110 mmol/L (98-107); GLUCOSE 115 mg/dL (75-110); POTASSIUM 3.4 mmol/L (3.6-5.0); TOTAL PROTEIN 5.4 g/dL (6.3-8.2)
--- NOTE | 2019-07-06 07:26 | PDOC PROGRESS REPORT ---
Subjective Progress Note for:: 07/04/19 Subjective:: Still with limited interaction. Reason For Visit: STROKE Physical Exam Vital Signs: Temp Pulse Resp BP Pulse Ox 97.8 F 91 16 123/74 99 07/04/19 13:59 07/04/19 14:00 07/04/19 13:59 07/04/19 13:59 07/04/19 13:59 Intake & Output 07/03/19 07/04/19 07/05/19 06:59 06:59 06:59 Intake Total 2050 1000 1200 Output Total 56756 1325 200 Balance -9595 -325 1000 Weight 85.7 kg 86.3 kg General appearance: PRESENT: mild distress Head exam: PRESENT: atraumatic, normocephalic Mouth exam: PRESENT: dry mucosa Respiratory exam: PRESENT: clear to auscultation gurpreet. ABSENT: rales, rhonchi, wheezes Cardiovascular exam: PRESENT: bradycardia - Borderline bradycardia, RRR, +S1, +S2 GI/Abdominal exam: PRESENT: hypoactive bowel sounds, soft. ABSENT: distended, tenderness Extremities exam: PRESENT: other - Puffiness in upper extremities Neurological exam: PRESENT: alert, awake, oriented to person, aphasic, other - Difficult to completely assess orientation due to aphasia but patient appears to understand the discussion. Psychiatric exam: PRESENT: flat affect. ABSENT: agitated, anxious Results Laboratory Results: 07/04/19 04:27 07/03/19 04:50 07/04/19 04:27 WBC 9.4 RBC 3.92 L Hgb 9.6 L Hct 29.7 L MCV 76 L MCH 24.6 L MCHC 32.4 RDW 16.4 H Plt Count 170 06/24/19 06/24/19 06/24/19 10:20 13:24 13:24 Creatine Kinase 174 H CK-MB (CK-2) 3.50 Troponin I 0.084 0.122 NT-Pro-B Natriuret Pep 06/24/19 06/24/19 06/25/19 18:50 18:50 00:58 Creatine Kinase 173 H 233 H CK-MB (CK-2) 3.63 Troponin I 0.122 NT-Pro-B Natriuret Pep 06/25/19 06/25/19 00:58 06:15 Creatine Kinase CK-MB (CK-2) 3.50 Troponin I 0.148 NT-Pro-B Natriuret Pep 7250 H Impressions: Head CTA 06/24/19 00:00 IMPRESSION: NO CTA EVIDENCE OF STENOSIS OR ANEURYSM OF THE [place]. Neck CTA 06/24/19 00:00 IMPRESSION: No evidence of carotid artery stenosis or dissection. Cervical Spine CT 06/24/19 10:07 IMPRESSION: CHRONIC DEGENERATIVE CHANGES. NO ACUTE FINDINGS. Head CT 06/24/19 10:07 IMPRESSION: CHRONIC CHANGES OF ATROPHY AND MICROVASCULAR ISCHEMIA. NO ACUTE PROCESS. EVIDENCE OF ACUTE STROKE: NO. Forearm X-Ray 06/24/19 11:24 IMPRESSION: Possible nondisplaced fracture of the distal radius. Consider radiographs of the wrist. Head MRI 06/24/19 12:04 IMPRESSION: ATROPHY AND CHRONIC MICRO-VASCULAR ISCHEMIC CHANGES. Positive for restricted diffusion internal capsule on the left. Acute infarction. EVIDENCE OF ACUTE STROKE: YES. LEFT MCA. Wrist X-Ray 06/24/19 12:23 IMPRESSION: Degenerative arthritis of the right wrist. Modified Barium Swallow 06/28/19 00:00 IMPRESSION: ASPIRATION WITH THIN BARIUM. PLEASE SEE SPEECH PATHOLOGIST REPORT FOR OTHER FINDINGS AND RECOMMENDATIONS. Chest X-Ray 07/02/19 07:00 IMPRESSION: Cardiomegaly with mild pulmonary edema. Assessment and Plan - Diagnosis (1) CVA (cerebral vascular accident) Qualifiers: CVA mechanism: embolism Precerebral and cerebral artery: middle cerebral artery Laterality of affected vessel: left Qualified Code(s): I63.412 - Cerebral infarction due to embolism of left middle cerebral artery Is this a current diagnosis for this admission?: Yes Plan: The patient has right-sided weakness as a result of his stroke. He also has dysphagia and aphasia. Physical therapy continues to work with the patient. The goal would be for skilled facility after discharge. 07/04/2019-concerns that patient is declining rather than making progress. Part of this could be nutritional as his diet has been limited by his swallow. We will place a PEG tube for the dysphagia. 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 The swallow is compromised. Currently on modified diet. We will continue to work with speech therapy. 07/04/2019-as noted above the swallow is likely significantly affecting his recovery. I have opted to place a PEG tube. I discussed it with his son who is in agreement. (3) Acute kidney injury Is this a current diagnosis for this admission?: Yes Plan: Serum creatinine is down to 1.37. We will continue to monitor. 07/04/2019-we will continue to monitor. Trying to avoid too frequent lab testing but will recheck tomorrow. Will be able to give free water once the PEG tube is in place. (4) Atrial fibrillation Qualifiers: Atrial fibrillation type: chronic Qualified Code(s): I48.2 - Chronic atrial fibrillation Is this a current diagnosis for this admission?: Yes Plan: Chronic atrial fibrillation. Rate is well controlled. Due to hematuria no anticoagulation at this time. 07/04/2019-because of the excellent rate control patient does appear to be in sinus rhythm by auscultation however monitor reveals underlying fibrillation. (5) Hypernatremia Is this a current diagnosis for this admission?: Yes Plan: Serum sodium is slightly improved. We will continue to monitor. Fluid intake is marginal. Patient also getting continuous bladder irrigation. This may affect electrolytes. 07/04/2019-no labs today. We will recheck and adjust fluids accordingly. (6) Contusion of right arm Qualifiers: Encounter type: initial encounter Qualified Code(s): S40.021A - Contusion of right upper arm, initial encounter Is this a current diagnosis for this admission?: Yes Plan: Continue to monitor. Appears to be improving. 07/04/2019-conservative care at this point. (7) HTN (hypertension) Is this a current diagnosis for this admission?: Yes Plan: Continue current regimen. Blood pressure under reasonable control. 07/04/2019-acceptable blood control. Continue current regimen. (8) Hematuria Qualifiers: Hematuria type: gross Qualified Code(s): R31.0 - Gross hematuria Is this a current diagnosis for this admission?: Yes Plan: The patient is getting continuous bladder irrigation. Urine is still tea colored but appears to be improving. Holding anticoagulation at this time. 07/04/2019-appears to be resolving. Will likely stop continuous bladder irrigation. Will leave Mobley catheter in due to patient's immobility and high risk for skin breakdown. (9) Hypokalemia Is this a current diagnosis for this admission?: Yes Plan: Serum potassium still marginal. Oral intake varies. We will recheck serum potassium. 07/04/2019-limited diet likely affecting electrolytes. Continue IV fluid. Recheck labs tomorrow. (10) Elevated PSA Is this a current diagnosis for this admission?: Yes Plan: Consider outpatient follow-up. At this age active intervention is unlikely. 07/04/2019-as above (11) Acute confusional state of cerebrovascular origin Is this a current diagnosis for this admission?: Yes Plan: The patient was noted to have an altered mental status on admission. I believe this is related to his stroke. 07/04/2019-patient certainly maintains eye contact at least temporarily. I believe he comprehends our discussion. The acute confusional state is likely resolved. - Time Time Spent with patient: 15-24 minutes Medications reviewed and adjusted accordingly: Yes Anticipated discharge: SNF
[2019-07-06 07:30] LABS: APPEARANCE,URINE SLIGHTLY-CLOUDY; BILIRUBIN,URINE NEGATIVE (NEGATIVE); COLOR,URINE YELLOW; GLUCOSE, URINE NEGATIVE (NEGATIVE); KETONES,URINE NEGATIVE (NEGATIVE); LEUKOCYTE ESTERASE,URINE SMALL (NEGATIVE); NITRITE,URINE NEGATIVE (NEGATIVE); PROTEIN,URINE 30 mg/dL (NEGATIVE)
--- NOTE | 2019-07-06 07:40 | PDOC PROGRESS REPORT ---
Subjective Progress Note for:: 07/05/19 Subjective:: The patient had the PEG tube placed yesterday. We will be able to initiate tube feeds today. Reason For Visit: STROKE Physical Exam Vital Signs: Temp Pulse Resp BP Pulse Ox 97.8 F 90 18 136/69 H 93 07/05/19 11:37 07/05/19 11:37 07/05/19 11:37 07/05/19 11:37 07/05/19 11:37 Intake & Output 07/04/19 07/05/19 07/06/19 06:59 06:59 06:59 Intake Total 1000 1440 Output Total 1325 1000 Balance -325 440 Weight 86.3 kg 84 kg General appearance: PRESENT: mild distress, well-developed Head exam: PRESENT: atraumatic, normocephalic Eye exam: PRESENT: conjunctiva pale Mouth exam: PRESENT: dry mucosa Respiratory exam: PRESENT: clear to auscultation gurpreet, symmetrical, unlabored. ABSENT: rales, rhonchi, tachypnea, wheezes Cardiovascular exam: PRESENT: RRR, +S1, +S2 GI/Abdominal exam: PRESENT: normal bowel sounds, soft, other - PEG tube in place with abdominal binder. ABSENT: distended, tenderness Rectal exam: PRESENT: deferred Gentrourinary exam: PRESENT: indwelling catheter Extremities exam: PRESENT: pedal edema Neurological exam: PRESENT: alert, awake, oriented to person - Makes eye contact and appears to respond to questions when addressed specifically to him. Psychiatric exam: PRESENT: flat affect. ABSENT: agitated, anxious Focused psych exam: ABSENT: restlessness Results Laboratory Results: 07/04/19 04:27 07/03/19 04:50 06/24/19 06/24/19 06/24/19 10:20 13:24 13:24 Creatine Kinase 174 H CK-MB (CK-2) 3.50 Troponin I 0.084 0.122 NT-Pro-B Natriuret Pep 06/24/19 06/24/19 06/25/19 18:50 18:50 00:58 Creatine Kinase 173 H 233 H CK-MB (CK-2) 3.63 Troponin I 0.122 NT-Pro-B Natriuret Pep 06/25/19 06/25/19 00:58 06:15 Creatine Kinase CK-MB (CK-2) 3.50 Troponin I 0.148 NT-Pro-B Natriuret Pep 7250 H Impressions: Head CTA 06/24/19 00:00 IMPRESSION: NO CTA EVIDENCE OF STENOSIS OR ANEURYSM OF THE [place]. Neck CTA 06/24/19 00:00 IMPRESSION: No evidence of carotid artery stenosis or dissection. Cervical Spine CT 06/24/19 10:07 IMPRESSION: CHRONIC DEGENERATIVE CHANGES. NO ACUTE FINDINGS. Head CT 06/24/19 10:07 IMPRESSION: CHRONIC CHANGES OF ATROPHY AND MICROVASCULAR ISCHEMIA. NO ACUTE PROCESS. EVIDENCE OF ACUTE STROKE: NO. Forearm X-Ray 06/24/19 11:24 IMPRESSION: Possible nondisplaced fracture of the distal radius. Consider radiographs of the wrist. Head MRI 06/24/19 12:04 IMPRESSION: ATROPHY AND CHRONIC MICRO-VASCULAR ISCHEMIC CHANGES. Positive for restricted diffusion internal capsule on the left. Acute infarction. EVIDENCE OF ACUTE STROKE: YES. LEFT MCA. Wrist X-Ray 06/24/19 12:23 IMPRESSION: Degenerative arthritis of the right wrist. Modified Barium Swallow 06/28/19 00:00 IMPRESSION: ASPIRATION WITH THIN BARIUM. PLEASE SEE SPEECH PATHOLOGIST REPORT FOR OTHER FINDINGS AND RECOMMENDATIONS. Chest X-Ray 07/02/19 07:00 IMPRESSION: Cardiomegaly with mild pulmonary edema. Assessment and Plan - Diagnosis (1) CVA (cerebral vascular accident) Qualifiers: CVA mechanism: embolism Precerebral and cerebral artery: middle cerebral artery Laterality of affected vessel: left Qualified Code(s): I63.412 - Cerebral infarction due to embolism of left middle cerebral artery Is this a current diagnosis for this admission?: Yes Plan: The patient has right-sided weakness as a result of his stroke. He also has dysphagia and aphasia. Physical therapy continues to work with the patient. The goal would be for skilled facility after discharge. 07/04/2019-concerns that patient is declining rather than making progress. Part of this could be nutritional as his diet has been limited by his swallow. We will place a PEG tube for the dysphagia. 07/05/2019-I did discuss the case with speech therapy. In addition to concerns about the swallow, he does now have a PEG tube, she worries because she has noticed a consistent decline in the patient as opposed to recovery. If there is no problem with the PEG tube the patient should transfer to [facility] tomorrow. 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 The swallow is compromised. Currently on modified diet. We will continue to work with speech therapy. 07/04/2019-as noted above the swallow is likely significantly affecting his recovery. I have opted to place a PEG tube. I discussed it with his son who is in agreement. 07/05/2019-PEG tube in place. Now speech therapy can work on the swallow as the patient gets all of his required nutrition through the PEG tube. (3) Acute kidney injury Is this a current diagnosis for this admission?: Yes Plan: Serum creatinine is down to 1.37. We will continue to monitor. 07/04/2019-we will continue to monitor. Trying to avoid too frequent lab testing but will recheck tomorrow. Will be able to give free water once the PEG tube is in place. 07/05/2019. We will check labs and administer free water through the PEG tube so that we can discontinue IV fluids. (4) Atrial fibrillation Qualifiers: Atrial fibrillation type: chronic Qualified Code(s): I48.2 - Chronic atrial fibrillation Is this a current diagnosis for this admission?: Yes Plan: Chronic atrial fibrillation. Rate is well controlled. Due to hematuria no anticoagulation at this time. 07/04/2019-because of the excellent rate control patient does appear to be in sinus rhythm by auscultation however monitor reveals underlying fibrillation. 07/05/2019-excellent rate control. Hematuria has resolved so will likely restart anticoagulation. Consider using a newer agent to avoid frequent testing required with warfarin. (5) Hypernatremia Is this a current diagnosis for this admission?: Yes Plan: Serum sodium is slightly improved. We will continue to monitor. Fluid intake is marginal. Patient also getting continuous bladder irrigation. This may affect electrolytes. 07/04/2019-no labs today. We will recheck and adjust fluids accordingly. [id number]-we will adjust free water associated with tube feeding based on serum sodium levels. (6) Contusion of right arm Qualifiers: Encounter type: initial encounter Qualified Code(s): S40.021A - Contusion of right upper arm, initial encounter Is this a current diagnosis for this admission?: Yes Plan: Continue to monitor. Appears to be improving. 07/04/2019-conservative care at this point. 07/05/2019-as above. No change. (7) HTN (hypertension) Is this a current diagnosis for this admission?: Yes Plan: Continue current regimen. Blood pressure under reasonable control. 07/04/2019-acceptable blood control. Continue current regimen. 07/05/2019-continue current regimen as blood pressure is reasonably controlled (8) Hematuria Qualifiers: Hematuria type: gross Qualified Code(s): R31.0 - Gross hematuria Is this a current diagnosis for this admission?: Yes Plan: The patient is getting continuous bladder irrigation. Urine is still tea colored but appears to be improving. Holding anticoagulation at this time. 07/04/2019-appears to be resolving. Will likely stop continuous bladder irrigation. Will leave Mobley catheter in due to patient's immobility and high risk for skin breakdown. 07/05/2019-discontinue continuous bladder irrigation and monitor urine output for blood. (9) Hypokalemia Is this a current diagnosis for this admission?: Yes Plan: Serum potassium still marginal. Oral intake varies. We will recheck serum potassium. 07/04/2019-limited diet likely affecting electrolytes. Continue IV fluid. Recheck labs tomorrow. 07/05/2019-check electrolytes and adjust potassium supplementation accordingly. (10) Elevated PSA Is this a current diagnosis for this admission?: Yes Plan: Consider outpatient follow-up. At this age active intervention is unlikely. 07/04/2019-as above 07/05/2019-plan noted above (11) Acute confusional state of cerebrovascular origin Is this a current diagnosis for this admission?: Yes Plan: The patient was noted to have an altered mental status on admission. I believe this is related to his stroke. 07/04/2019-patient certainly maintains eye contact at least temporarily. I believe he comprehends our discussion. The acute confusional state is likely resolved. 07/05/2019-the patient's confusion seems to be resolved. Difficult to fully assess due to aphasia. Hopefully with improved nutrition he will regain better communication skills. - Time Time Spent with patient: 15-24 minutes Medications reviewed and adjusted accordingly: Yes Anticipated discharge: SNF Within: within 24 hours
[2019-07-06 07:47] LABS: ADD MANUAL MICROSCOPIC YES; RBC,URINE >100 /HPF
[2019-07-06 07:48] LABS: BACTERIA,URINE TRACE /HPF; HYALINE CASTS, URINE RARE /LPF
[2019-07-06 08:08] LABS: ABSOLUTE LYMPHOCYTES# (MANUAL) 1.6 10^3/uL (0.5-4.7); ABSOLUTE MONOCYTES # (MANUAL) 0.6 10^3/uL (0.1-1.4); BASOPHILS % (MANUAL) 1 % (0-2); EOSINOPHILS % (MANUAL) 2 % (0-6); LYMPHOCYTES % (MANUAL) 13 % (13-45); MONOCYTES % (MANUAL) 5 % (3-13); SEGMENTED NEUTROPHILS % (MAN) 78 % (42-78); TOTAL CELLS COUNTED 100
[2019-07-06 08:10] LABS: ANISOCYTOSIS 1+; HYPOCHROMASIA SLIGHT; OVALOCYTES SLIGHT; PLATELET COMMENT ADEQUATE; PLATELET GIANT PRESENT; POIKILOCYTOSIS SLIGHT; POLYCHROMASIA SLIGHT
[2019-07-06] MEDS ORDERED: LIDOCAINE 2% INJ-PF (20 MG/ML) 2 ML AMPUL ONE (09:50)
[2019-07-06] MEDS ORDERED: GLYCOPYRROLATE 1 MG/5 ML VIAL ONE (09:50)
[2019-07-06] MEDS ORDERED: NEOSTIGMINE METHYLSULFATE 10 MG/10 ML VIAL ONE (09:50)
[2019-07-06] MEDS ORDERED: DEXAMETHASONE SOD PHOSPHATE INJ 4 MG/1 ML VIAL ONE (09:50)
[2019-07-06] MEDS ORDERED: ONDANSETRON HCL INJ/PF 4 MG/2 ML SDV ONE (09:50)
[2019-07-06] MEDS ORDERED: DIGOXIN 0.125 MG TABLET PEG SCH (10:00)
[2019-07-06] MEDS ORDERED: APIXABAN 2.5 MG TABLET PO SCH (10:00)
[2019-07-06] MEDS: DIGOXIN INJ 0.5 MG/2 ML AMPULE IV SCH (11:19)
[2019-07-06] MEDS: ASPIRIN 81 MG TABLET, CHEWABLE PEG SCH (11:19)
[2019-07-06] MEDS: ATENOLOL 50 MG TABLET PEG SCH (11:20)
[2019-07-06] MEDS: AMLODIPINE BESYLATE 10 MG TABLET PEG SCH (11:30)
[2019-07-06] MEDS: FAMOTIDINE INJ/PF 20 MG/2 ML SDV IV SCH ×2 (11:48→21:22)
--- NOTE | 2019-07-06 13:11 | Progress Note ---
Provider Note Provider Note: pt pulled out recently placed peg tube mejia cath easily placed back into tract. will get dye study to check placement.
--- NOTE | 2019-07-06 14:31 | PDOC PROGRESS REPORT ---
Subjective Progress Note for:: 07/06/19 Subjective:: The patient is resting in bed. There is some blood staining on the abdominal binder. The PEG tube is out. The small incision is no longer bleeding. Despite the binder the patient was able to pull out his PEG tube. Reason For Visit: STROKE Physical Exam Vital Signs: Temp Pulse Resp BP Pulse Ox 98.7 F 69 23 H 138/73 H 95 07/05/19 16:44 07/06/19 07:00 07/05/19 16:44 07/05/19 16:44 07/05/19 16:44 Intake & Output 07/05/19 07/06/19 07/07/19 06:59 06:59 06:59 Intake Total 1440 1213 Output Total 1000 650 Balance 440 563 Weight 84 kg 84.1 kg General appearance: PRESENT: mild distress - Mild to moderate distress, well- developed - But frail appearing 79-year-old patient resting in bed. Head exam: PRESENT: atraumatic, normocephalic Eye exam: PRESENT: conjunctiva pale. ABSENT: scleral icterus Mouth exam: PRESENT: dry mucosa, tongue midline Respiratory exam: PRESENT: clear to auscultation gurpreet - Anteriorly, symmetrical, unlabored. ABSENT: rales, rhonchi, tachypnea, wheezes Cardiovascular exam: PRESENT: irregular rhythm GI/Abdominal exam: PRESENT: normal bowel sounds, soft, other - Abdominal binder in place. ABSENT: distended Rectal exam: PRESENT: deferred Gentrourinary exam: PRESENT: indwelling catheter Extremities exam: ABSENT: calf tenderness, pedal edema Musculoskeletal exam: PRESENT: normal inspection, other - Increasing function of the right arm Neurological exam: PRESENT: awake, aphasic. ABSENT: alert - Somnolent. Psychiatric exam: PRESENT: flat affect. ABSENT: agitated, anxious Results Laboratory Results: 07/06/19 05:48 07/06/19 05:48 07/06/19 07/06/19 07/06/19 05:48 05:48 06:55 WBC 11.6 H RBC 4.05 L Hgb 9.9 L Hct 30.9 L MCV 76 L MCH 24.4 L MCHC 32.0 RDW 16.7 H Plt Count 237 Seg Neutrophils % Not Reportable Lymphocytes % Not Reportable Monocytes % Not Reportable Eosinophils % Not Reportable Basophils % Not Reportable Absolute Neutrophils Not Reportable Absolute Lymphocytes Not Reportable Absolute Monocytes Not Reportable Absolute Eosinophils Not Reportable Absolute Basophils Not Reportable Sodium 145.8 H Potassium 3.4 L Chloride 110 H Carbon Dioxide 29 Anion Gap 7 BUN 26 H Creatinine 1.10 Est GFR ( Amer) > 60 Est GFR (Non-Af Amer) > 60 Glucose 115 H Calcium 8.2 L Magnesium 1.9 Total Bilirubin 0.9 AST 48 Alkaline Phosphatase 59 Total Protein 5.4 L Albumin 2.7 L Urine Color YELLOW Urine Appearance SLIGHTLY-CLOUDY Urine pH 5.0 Ur Specific [place] 1.020 Urine Protein 30 H Urine Glucose (UA) NEGATIVE Urine Ketones NEGATIVE Urine Blood LARGE H Urine Nitrite NEGATIVE Ur Leukocyte Esterase SMALL H 06/24/19 06/24/19 06/24/19 10:20 13:24 13:24 Creatine Kinase 174 H CK-MB (CK-2) 3.50 Troponin I 0.084 0.122 NT-Pro-B Natriuret Pep 06/24/19 06/24/19 06/25/19 18:50 18:50 00:58 Creatine Kinase 173 H 233 H CK-MB (CK-2) 3.63 Troponin I 0.122 NT-Pro-B Natriuret Pep 06/25/19 06/25/19 00:58 06:15 Creatine Kinase CK-MB (CK-2) 3.50 Troponin I 0.148 NT-Pro-B Natriuret Pep 7250 H Impressions: Head CTA 06/24/19 00:00 IMPRESSION: NO CTA EVIDENCE OF STENOSIS OR ANEURYSM OF THE [place] OF [place]. Neck CTA 06/24/19 00:00 IMPRESSION: No evidence of carotid artery stenosis or dissection. Cervical Spine CT 06/24/19 10:07 IMPRESSION: CHRONIC DEGENERATIVE CHANGES. NO ACUTE FINDINGS. Head CT 06/24/19 10:07 IMPRESSION: CHRONIC CHANGES OF ATROPHY AND MICROVASCULAR ISCHEMIA. NO ACUTE PROCESS. EVIDENCE OF ACUTE STROKE: NO. Forearm X-Ray 06/24/19 11:24 IMPRESSION: Possible nondisplaced fracture of the distal radius. Consider radiographs of the wrist. Head MRI 06/24/19 12:04 IMPRESSION: ATROPHY AND CHRONIC MICRO-VASCULAR ISCHEMIC CHANGES. Positive for restricted diffusion internal capsule on the left. Acute infarction. EVIDENCE OF ACUTE STROKE: YES. LEFT MCA. Wrist X-Ray 06/24/19 12:23 IMPRESSION: Degenerative arthritis of the right wrist. Modified Barium Swallow 06/28/19 00:00 IMPRESSION: ASPIRATION WITH THIN BARIUM. PLEASE SEE SPEECH PATHOLOGIST REPORT FOR OTHER FINDINGS AND RECOMMENDATIONS. Chest X-Ray 07/02/19 07:00 IMPRESSION: Cardiomegaly with mild pulmonary edema. Assessment and Plan - Diagnosis (1) CVA (cerebral vascular accident) Qualifiers: CVA mechanism: embolism Precerebral and cerebral artery: middle cerebral artery Laterality of affected vessel: left Qualified Code(s): I63.412 - Cerebral infarction due to embolism of left middle cerebral artery Is this a current diagnosis for this admission?: Yes Plan: The patient has right-sided weakness as a result of his stroke. He also has dysphagia and aphasia. Physical therapy continues to work with the patient. The goal would be for skilled facility after discharge. 07/04/2019-concerns that patient is declining rather than making progress. Part of this could be nutritional as his diet has been limited by his swallow. We will place a PEG tube for the dysphagia. 07/05/2019-I did discuss the case with speech therapy. In addition to concerns about the swallow, he does now have a PEG tube, she worries because she has noticed a consistent decline in the patient as opposed to recovery. If there is no problem with the PEG tube the patient should transfer to [facility] tomorrow. 07/06/2019-unfortunately patient pulled out his PEG. With his aphasia it is very difficult to know if he is doing this on purpose and trying to let people know that he is tired of his hospitalization and wishes to change his treatment plan. Unfortunately the PEG tube was the route for his nutrition and medications. His swallow was not very safe. Several hours were spent in discussion with his sons by Dr. Villasenor and myself. It was finally decided that because of the dysphasia the family wanted to go ahead with a surgical closure of the original PEG tube site and then placement of a new gastrostomy tube. This will be done this afternoon. Unfortunately this delays his transfer to [facility]. 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 The swallow is compromised. Currently on modified diet. We will continue to work with speech therapy. 07/04/2019-as noted above the swallow is likely significantly affecting his recovery. I have opted to place a PEG tube. I discussed it with his son who is in agreement. 07/05/2019-PEG tube in place. Now speech therapy can work on the swallow as the patient gets all of his required nutrition through the PEG tube. 07/06/2019-as noted above the patient pulled his PEG tube. Options would be to replace the gastrostomy tube (which was in fact chosen) versus nasogastric tubes. The patient is most likely pull out the nasogastric tubes. We are going to try and protect the new tube that will be placed surgically later today. In addition to an abdominal binder I would likely institute some medications to try and ease the patient's agitation. (3) Acute kidney injury Is this a current diagnosis for this admission?: Yes Plan: Serum creatinine is down to 1.37. We will continue to monitor. 07/04/2019-we will continue to monitor. Trying to avoid too frequent lab testing but will recheck tomorrow. Will be able to give free water once the PEG tube is in place. 07/05/2019. We will check labs and administer free water through the PEG tube so that we can discontinue IV fluids. 07/06/2019-the serum creatinine is back to normal. The BUN is continuing to trend towards normal. We will continue the D5 half-normal saline and once the gastrostomy tube is in place we will institute free water. (4) Atrial fibrillation Qualifiers: Atrial fibrillation type: chronic Qualified Code(s): I48.2 - Chronic atrial fibrillation Is this a current diagnosis for this admission?: Yes Plan: Chronic atrial fibrillation. Rate is well controlled. Due to hematuria no anticoagulation at this time. 07/04/2019-because of the excellent rate control patient does appear to be in sinus rhythm by auscultation however monitor reveals underlying fibrillation. 07/05/2019-excellent rate control. Hematuria has resolved so will likely restart anticoagulation. Consider using a newer agent to avoid frequent testing required with warfarin. 07/06/2019-the patient remains in atrial fibrillation with good rate control. I will start anticoagulation now that is most likely that there will be no more ramírez rgical procedures. Continue other cardiac medications. Because of the recent hematuria I am going to start Eliquis at 2.5 mg twice daily and monitor for bleeding. (5) Hypernatremia Is this a current diagnosis for this admission?: Yes Plan: Serum sodium is slightly improved. We will continue to monitor. Fluid intake is marginal. Patient also getting continuous bladder irrigation. This may affect electrolytes. 07/04/2019-no labs today. We will recheck and adjust fluids accordingly. 07/05/2019-we will adjust free water associated with tube feeding based on serum sodium levels. 07/06/2019-patient serum sodium is slowly improving. Continue D5 half-normal saline. (6) Contusion of right arm Qualifiers: Encounter type: initial encounter Qualified Code(s): S40.021A - Contusion of right upper arm, initial encounter Is this a current diagnosis for this admission?: Yes Plan: Continue to monitor. Appears to be improving. 07/04/2019-conservative care at this point. 07/05/2019-as above. No change. (7) HTN (hypertension) Is this a current diagnosis for this admission?: Yes Plan: Continue current regimen. Blood pressure under reasonable control. 07/04/2019-acceptable blood control. Continue current regimen. 07/05/2019-continue current regimen as blood pressure is reasonably controlled 07/06/2018-blood pressure and pulse with good control. Continue same regimen. (8) Hematuria Qualifiers: Hematuria type: gross Qualified Code(s): R31.0 - Gross hematuria Is this a current diagnosis for this admission?: Yes Plan: The patient is getting continuous bladder irrigation. Urine is still tea colored but appears to be improving. Holding anticoagulation at this time. 07/04/2019-appears to be resolving. Will likely stop continuous bladder irrigation. Will leave Mobley catheter in due to patient's immobility and high risk for skin breakdown. 07/05/2019-discontinue continuous bladder irrigation and monitor urine output for blood. 07/06/2019-no evidence of gross hematuria. I am going to resume anticoagulation f or the atrial fibrillation and monitor closely for hematuria. (9) Hypokalemia Is this a current diagnosis for this admission?: Yes Plan: Serum potassium still marginal. Oral intake varies. We will recheck serum potassium. 07/04/2019-limited diet likely affecting electrolytes. Continue IV fluid. Recheck labs tomorrow. 07/05/2019-check electrolytes and adjust potassium supplementation accordingly. 07/06/2019-serum potassium remains normal. Continue to monitor. (10) Elevated PSA Is this a current diagnosis for this admission?: Yes Plan: Consider outpatient follow-up. At this age active intervention is unlikely. 07/04/2019-as above 07/05/2019-plan noted above 07/06/2019-we did try and initiate Flomax therapy for suspected BPH. This cannot be crushed and put through PEG tube. Will hold for now and consider options. (11) Acute confusional state of cerebrovascular origin Is this a current diagnosis for this admission?: Yes Plan: The patient was noted to have an altered mental status on admission. I believe this is related to his stroke. 07/04/2019-patient certainly maintains eye contact at least temporarily. I believe he comprehends our discussion. The acute confusional state is likely resolved. 07/05/2019-the patient's confusion seems to be resolved. Difficult to fully assess due to aphasia. Hopefully with improved nutrition he will regain better communication skills. 07/06/2019-the patient appeared to understand will be talked to him about the need to replace the PEG tube. He had a very angry affect. He still has episodes of agitation and pulls at things. It is hard to know his mental state at that time because he is aphasic. - Time Time Spent with patient: 35 or more minutes Medications reviewed and adjusted accordingly: Yes Anticipated discharge: SNF - Plan Summary Plan Summary: The patient pulled out his PEG tube despite the abdominal binder in place. Attempts were made to put a temporary Mobley catheter in place to use as a PEG tube. Unfortunately because it was only 48 hours since the original surgery a tract was not performed and so we were not able to access the stomach. I spent approximately 25 to 30 minutes talking with the patient's 2 sons. Because the Mobley catheter was not able to be inserted the question that needs to be answered is had a reaccessed the GI tract to provide nutrition. One option would be a Dobbhoff tube but no facility will accept the patient with a Dobbhoff tube. Another option is TPN in a facility will accept the patient with TPN. Third option is for a gastrostomy that will be surgically implanted and tacked in place. This would be more of a permanent placement rather than the PEG tube that can be removed if the patient no longer needs it. I also offered for palliative care to revisit with the family. They declined at this point. Dr. Villasenor spent a good deal of time discussing the options with the patient's son Trevor as well. I placed a call to Trevor to see what decision he would like to make.
--- NOTE | 2019-07-06 15:11 | PDOC PROGRESS REPORT ---
Subjective Progress Note for:: 07/06/19 Subjective:: gtube pulled out Reason For Visit: STROKE Physical Exam Vital Signs: Temp Pulse Resp BP Pulse Ox 98.7 F 69 23 H 138/73 H 95 07/05/19 16:44 07/06/19 07:00 07/05/19 16:44 07/05/19 16:44 07/05/19 16:44 Intake & Output 07/05/19 07/06/19 07/07/19 06:59 06:59 06:59 Intake Total 1440 1213 Output Total 1000 650 Balance 440 563 Weight 84 kg 84.1 kg General appearance: PRESENT: mild distress Head exam: PRESENT: normocephalic Eye exam: PRESENT: EOMI Mouth exam: PRESENT: moist Neck exam: PRESENT: full ROM Respiratory exam: PRESENT: clear to auscultation gurpreet Cardiovascular exam: PRESENT: RRR Pulses: PRESENT: +2 pedal pulses bilateral GI/Abdominal exam: PRESENT: soft, other - gtube site in luq Rectal exam: PRESENT: deferred Extremities exam: PRESENT: full ROM Musculoskeletal exam: PRESENT: full ROM Neurological exam: PRESENT: other - pt confused, non communicative Psychiatric exam: PRESENT: agitated Skin exam: PRESENT: dry Results Laboratory Results: 07/06/19 05:48 07/06/19 05:48 07/06/19 07/06/19 07/06/19 05:48 05:48 06:55 WBC 11.6 H RBC 4.05 L Hgb 9.9 L Hct 30.9 L MCV 76 L MCH 24.4 L MCHC 32.0 RDW 16.7 H Plt Count 237 Seg Neutrophils % Not Reportable Lymphocytes % Not Reportable Monocytes % Not Reportable Eosinophils % Not Reportable Basophils % Not Reportable Absolute Neutrophils Not Reportable Absolute Lymphocytes Not Reportable Absolute Monocytes Not Reportable Absolute Eosinophils Not Reportable Absolute Basophils Not Reportable Sodium 145.8 H Potassium 3.4 L Chloride 110 H Carbon Dioxide 29 Anion Gap 7 BUN 26 H Creatinine 1.10 Est GFR ( Amer) > 60 Est GFR (Non-Af Amer) > 60 Glucose 115 H Calcium 8.2 L Magnesium 1.9 Total Bilirubin 0.9 AST 48 Alkaline Phosphatase 59 Total Protein 5.4 L Albumin 2.7 L Urine Color YELLOW Urine Appearance SLIGHTLY-CLOUDY Urine pH 5.0 Ur Specific [place] 1.020 Urine Protein 30 H Urine Glucose (UA) NEGATIVE Urine Ketones NEGATIVE Urine Blood LARGE H Urine Nitrite NEGATIVE Ur Leukocyte Esterase SMALL H 06/24/19 06/24/19 06/24/19 10:20 13:24 13:24 Creatine Kinase 174 H CK-MB (CK-2) 3.50 Troponin I 0.084 0.122 NT-Pro-B Natriuret Pep 06/24/19 06/24/19 06/25/19 18:50 18:50 00:58 Creatine Kinase 173 H 233 H CK-MB (CK-2) 3.63 Troponin I 0.122 NT-Pro-B Natriuret Pep 06/25/19 06/25/19 00:58 06:15 Creatine Kinase CK-MB (CK-2) 3.50 Troponin I 0.148 NT-Pro-B Natriuret Pep 7250 H Impressions: Head CTA 06/24/19 00:00 IMPRESSION: NO CTA EVIDENCE OF STENOSIS OR ANEURYSM OF THE [place] OF [place]. Neck CTA 06/24/19 00:00 IMPRESSION: No evidence of carotid artery stenosis or dissection. Cervical Spine CT 06/24/19 10:07 IMPRESSION: CHRONIC DEGENERATIVE CHANGES. NO ACUTE FINDINGS. Head CT 06/24/19 10:07 IMPRESSION: CHRONIC CHANGES OF ATROPHY AND MICROVASCULAR ISCHEMIA. NO ACUTE PROCESS. EVIDENCE OF ACUTE STROKE: NO. Forearm X-Ray 06/24/19 11:24 IMPRESSION: Possible nondisplaced fracture of the distal radius. Consider radiographs of the wrist. Head MRI 06/24/19 12:04 IMPRESSION: ATROPHY AND CHRONIC MICRO-VASCULAR ISCHEMIC CHANGES. Positive for restricted diffusion internal capsule on the left. Acute infarction. EVIDENCE OF ACUTE STROKE: YES. LEFT MCA. Wrist X-Ray 06/24/19 12:23 IMPRESSION: Degenerative arthritis of the right wrist. Modified Barium Swallow 06/28/19 00:00 IMPRESSION: ASPIRATION WITH THIN BARIUM. PLEASE SEE SPEECH PATHOLOGIST REPORT FOR OTHER FINDINGS AND RECOMMENDATIONS. Chest X-Ray 07/02/19 07:00 IMPRESSION: Cardiomegaly with mild pulmonary edema. Assessment & Plan - Plan Summary Plan Summary: pt pulled out his g-tube placed 2 days ago via peg unable to replace at bedside, and gastrostomy probable is open and possibley leaking recommend diagnostic laparoscopy and closure of gastrostomy long discussiion with family about replacement decision still pending if family decides, will place a surgical kaden gastrostomy discussed risks with pt's son who is poa,
[2019-07-06] MEDS ORDERED: POTASSI CL 20 MEQ/50 ML RIDER 20 MEQ/50 ML RTUPB IV ONE (15:30)
[2019-07-06] MEDS ORDERED: FENTANYL CITRATE INJ/PF 100 MCG/2 ML AMPUL ONE (16:42)
[2019-07-06] MEDS ORDERED: MIDAZOLAM 2 MG/2 ML INJ ONE (16:42)
[2019-07-06] MEDS ORDERED: PROPOFOL INJ 200 MG/20 ML VIAL IV ONE (16:42)
[2019-07-06] MEDS ORDERED: EPHEDRINE SULFATE INJ 50 MG/1 ML AMPULE ONE (16:42)
[2019-07-06] MEDS ORDERED: CEFAZOLIN INJ 1 GM VIAL ONE (17:13)
[2019-07-06] MEDS ORDERED: METRONIDAZOLE 500 MG/NS RTU 500 MG/100 ML RTUPB IV ONE (17:14)
[2019-07-06] MEDS ORDERED: DIPHENHYDRAMINE HCL 50 MG/ML VIAL IV PRN (19:40)
[2019-07-06] MEDS ORDERED: ONDANSETRON HCL INJ/PF 4 MG/2 ML SDV IV PRN (19:40)
[2019-07-06] MEDS ORDERED: FENTANYL CITRATE INJ/PF 100 MCG/2 ML AMPUL IV PRN ×3 (19:40)
[2019-07-06] MEDS ORDERED: PROMETHAZINE HCL INJ 25 MG/1 ML VIAL IV PRN (19:40)
--- NOTE | 2019-07-06 20:14 | Operative Report ---
Nonrecallable Operative Report DATE OF SURGERY: 07/06/19 PREOPERATIVE DIAGNOSIS: Dislodged gastrostomy tube POSTOPERATIVE DIAGNOSIS: Dislodged gastrostomy tube OPERATION: Diagnostic laparoscopy Conner gastrostomy SURGEON: USAMA IRBY ANESTHESIA: GA TISSUE REMOVED OR ALTERED: None COMPLICATIONS: None ESTIMATED BLOOD LOSS: 5 cc INTRAOPERATIVE FINDINGS: See dictation PROCEDURE: Patient was brought to the operating room awake in a stable condition placed on the operating table supine position induced under general anesthesia and intubated the abdomen was prepped and draped in usual sterile fashion for the procedure after an appropriate timeout a varies needle was placed into the umbilicus and the abdomen was insufflated with 6 L of CO2 gas infra umbilical 5 mm incision was made with a 15 blade and a 5 mm port placed in the abdominal cavity A second 5 mm port was placed in the right lower quadrant intra-abdominal visualization revealed no evidence of Veress needle or trocar injury there is only a minimal amount of fluid in the abdomen and immediately was able to identify the anterior surface of the stomach and on the lateral aspect greater curvature the stomach at about the incisura there was a small approximately 2 to 3 mm hole was not draining is mild fibrinous exudate around the edges of the whole. At this point after identifying the injury we removed the laparoscope and made a midline incision from approximately 5 cm below the xiphoid to approximately 3 cm above the umbilicus. Dissection was carried down through subtenons tissue with Bovie cautery and the midline fascia was entered with Bovie cautery. Once we entered the midline fascia we identified the stomach and I was used a Panchito clamp to deliver the stomach into the wound I examined the hole it was fairly clean with only minimal amount of fibrinous exudate around it I therefore used a 0 silk suture placed a pursestring suture around the gastrotomy. Using a 26 Italian Malecot tube was placed into the gastrotomy and tied down the pursestring suture post a second suture circumferentially around the first pursestring suture and and reinforce the closure with that. Take the point on the left anterior abdominal wall and made a small incision with a 15 blade approximately 1 cm long and used a Yohana clamp to pass through that wound into the abdomen and then tunnel the Malecot tube and through that wound. I then fixed the stomach to the anterior abdominal muscle and peritoneum with 4 sutures of 2-0 silk suture. Once this was completed I irrigated the Malecot tube with normal saline and easily flushed and withdrew. The stomach distended well as we irrigated the fluid and saw no evidence of any further leak. We then filled the abdominal cavity up with normal saline approximately a liter and suctioned dry. Closed the midline fascia with interrupted #1 Vicryl sutures closed the skin incisions with intracuticular 4-0 Biosyn Steri-Strips completed the procedure. Sponge needle counts were correct x2 the patient was awakened in the operating explained transferred recovery in stable condition
[2019-07-06] MEDS: DEXTROSE 5%-1/2 NORMAL SALINE 1,000 ML IV PRN (21:22)
[2019-07-06] MEDS: SIMVASTATIN 10 MG TABLET PEG SCH (21:34)
[2019-07-07] MEDS: INSULIN LISPRO 100 UNIT/ML 3 ML VIAL SUBCUT SCH ×4 (00:34→18:09)
[2019-07-07] MEDS: DEXTROSE 5%-1/2 NORMAL SALINE 1,000 ML IV PRN ×3 (05:33→22:46)
[2019-07-07 05:37] LABS: HEMATOCRIT 31.5 % (37.9-51.0); HEMOGLOBIN 10.2 g/dL (13.5-17.0); MEAN CORPUSCULAR HEMOGLOBIN 24.8 pg (27.0-33.4); MEAN CORPUSCULAR HGB CONC 32.5 g/dL (32.0-36.0); MEAN CORPUSCULAR VOLUME 76 fl (80-97); PLATELET COUNT 303 10^3/uL (150-450); RED BLOOD COUNT 4.14 10^6/uL (4.35-5.55); RED CELL DISTRIBUTION WIDTH 16.5 % (11.5-14.0); WHITE BLOOD COUNT 11.4 10^3/uL (4.0-10.5)
[2019-07-07 05:39] LABS: INTERNATIONAL RATION (INR) 1.18
[2019-07-07 05:54] LABS: ANION GAP 9 (5-19); BLOOD UREA NITROGEN 24 mg/dL (7-20); CALCIUM 7.8 mg/dL (8.4-10.2); CARBON DIOXIDE 27 mmol/L (22-30); CHLORIDE 110 mmol/L (98-107); GLUCOSE 212 mg/dL (75-110); POTASSIUM 4.2 mmol/L (3.6-5.0)
[2019-07-07 06:03] LABS: ABSOLUTE LYMPHOCYTES# (MANUAL) 0.3 10^3/uL (0.5-4.7); ABSOLUTE MONOCYTES # (MANUAL) 0.5 10^3/uL (0.1-1.4); ANISOCYTOSIS 1+; BASOPHILS % (MANUAL) 0 % (0-2); EOSINOPHILS % (MANUAL) 1 % (0-6); LYMPHOCYTES % (MANUAL) 3 % (13-45); MONOCYTES % (MANUAL) 4 % (3-13); PLATELET COMMENT ADEQUATE; POLYCHROMASIA 1+; SEGMENTED NEUTROPHILS % (MAN) 92 % (42-78); TOTAL CELLS COUNTED 100
[2019-07-07] MEDS: HALOPERIDOL LACTATE INJ 5 MG/1 ML VIAL IV PRN ×2 (06:03→14:37)
[2019-07-07] MEDS: FAMOTIDINE INJ/PF 20 MG/2 ML SDV IV SCH ×2 (10:29→22:36)
[2019-07-07] MEDS: DIGOXIN INJ 0.5 MG/2 ML AMPULE IV SCH (10:29)
[2019-07-07] MEDS: ASPIRIN 81 MG TABLET, CHEWABLE PEG SCH (10:31)
[2019-07-07] MEDS: AMLODIPINE BESYLATE 10 MG TABLET PEG SCH (10:31)
[2019-07-07] MEDS: ATENOLOL 50 MG TABLET PEG SCH (10:31)
--- NOTE | 2019-07-07 12:20 | PDOC PROGRESS REPORT ---
Subjective Progress Note for:: 07/07/19 Reason For Visit: STROKE Physical Exam Vital Signs: Temp Pulse Resp BP Pulse Ox 97.4 F 68 18 124/63 93 07/07/19 11:21 07/07/19 11:21 07/07/19 11:21 07/07/19 11:21 07/07/19 11:21 Intake & Output 07/06/19 07/07/19 07/08/19 06:59 06:59 06:59 Intake Total 1213 2800 0 Output Total 650 885 200 Balance 563 1915 -200 Weight 84.1 kg 85.3 kg Results Laboratory Results: 07/07/19 05:00 07/07/19 05:00 07/07/19 07/07/19 05:00 05:00 WBC 11.4 H RBC 4.14 L Hgb 10.2 L Hct 31.5 L MCV 76 L MCH 24.8 L MCHC 32.5 RDW 16.5 H Plt Count 303 Seg Neutrophils % Not Reportable Lymphocytes % Not Reportable Monocytes % Not Reportable Eosinophils % Not Reportable Basophils % Not Reportable Absolute Neutrophils Not Reportable Absolute Lymphocytes Not Reportable Absolute Monocytes Not Reportable Absolute Eosinophils Not Reportable Absolute Basophils Not Reportable Sodium 145.9 H Potassium 4.2 Chloride 110 H Carbon Dioxide 27 Anion Gap 9 BUN 24 H Creatinine 1.02 Est GFR ( Amer) > 60 Est GFR (Non-Af Amer) > 60 Glucose 212 H Calcium 7.8 L Magnesium 1.9 06/24/19 06/24/19 06/24/19 10:20 13:24 13:24 Creatine Kinase 174 H CK-MB (CK-2) 3.50 Troponin I 0.084 0.122 NT-Pro-B Natriuret Pep 06/24/19 06/24/19 06/25/19 18:50 18:50 00:58 Creatine Kinase 173 H 233 H CK-MB (CK-2) 3.63 Troponin I 0.122 NT-Pro-B Natriuret Pep 06/25/19 06/25/19 00:58 06:15 Creatine Kinase CK-MB (CK-2) 3.50 Troponin I 0.148 NT-Pro-B Natriuret Pep 7250 H Impressions: Head CTA 06/24/19 00:00 IMPRESSION: NO CTA EVIDENCE OF STENOSIS OR ANEURYSM OF THE [place]. Neck CTA 06/24/19 00:00 IMPRESSION: No evidence of carotid artery stenosis or dissection. Cervical Spine CT 06/24/19 10:07 IMPRESSION: CHRONIC DEGENERATIVE CHANGES. NO ACUTE FINDINGS. Head CT 06/24/19 10:07 IMPRESSION: CHRONIC CHANGES OF ATROPHY AND MICROVASCULAR ISCHEMIA. NO ACUTE PROCESS. EVIDENCE OF ACUTE STROKE: NO. Forearm X-Ray 06/24/19 11:24 IMPRESSION: Possible nondisplaced fracture of the distal radius. Consider radiographs of the wrist. Head MRI 06/24/19 12:04 IMPRESSION: ATROPHY AND CHRONIC MICRO-VASCULAR ISCHEMIC CHANGES. Positive for restricted diffusion internal capsule on the left. Acute infarction. EVIDENCE OF ACUTE STROKE: YES. LEFT MCA. Wrist X-Ray 06/24/19 12:23 IMPRESSION: Degenerative arthritis of the right wrist. Modified Barium Swallow 06/28/19 00:00 IMPRESSION: ASPIRATION WITH THIN BARIUM. PLEASE SEE SPEECH PATHOLOGIST REPORT FOR OTHER FINDINGS AND RECOMMENDATIONS. Chest X-Ray 07/02/19 07:00 IMPRESSION: Cardiomegaly with mild pulmonary edema. Assessment & Plan - Diagnosis (1) Inanition Is this a current diagnosis for this admission?: Yes (2) CVA (cerebral vascular accident) Qualifiers: CVA mechanism: embolism Precerebral and cerebral artery: middle cerebral artery Laterality of affected vessel: left Qualified Code(s): I63.412 - Cerebral infarction due to embolism of left middle cerebral artery Is this a current diagnosis for this admission?: Yes (3) Dysphagia Qualifiers: Dysphagia type: unspecified Qualified Code(s): R13.10 - Dysphagia, unspecified Is this a current diagnosis for this admission?: Yes (4) Dislodged gastrostomy tube Is this a current diagnosis for this admission?: Yes - Plan Summary Plan Summary: Is an 79-year-old male status post gastrostomy. The patient pulled and dislodged his gastrostomy yesterday. He is status post replacement with open gastrostomy. The patient's gastrostomy is in place today. His abdominal binder is in place as well. It is okay to start trickle tube feeds at 10 cc/h. Do not advance tube feeds. Monitor closely.
--- NOTE | 2019-07-07 16:07 | ADVANCED CARE ---
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 Diagnosis Current: Yes (3) Acute kidney injury Diagnosis Current: Yes (4) Atrial fibrillation Diagnosis Current: Yes (5) Hypernatremia Diagnosis Current: Yes (6) Contusion of right arm Diagnosis Current: Yes (7) HTN (hypertension) Diagnosis Current: Yes (8) Hematuria Diagnosis Current: Yes (9) Hypokalemia Diagnosis Current: Yes (10) Elevated PSA Diagnosis Current: Yes (11) Acute confusional state of cerebrovascular origin Diagnosis Current: Yes Attendance: Multiple conversations were had with the patient's sons. Resuscitation Status: Full Code Discussion: Approximately 30 minutes were spent in the family room on phone conference with the power of assistant prosecuting attorney as well as his brother. The patient's son "puja "was very upset that the father pulled out his PEG tube. He reports that this is the fourth episode of the patient dislodging something. He suggested that we keep the patient's hands tied down or medicate him. He was clearly very upset. His brother was trying to get him to focus on the decision to be made regarding replacing a tube. Options of [place], nasogastric and gastrostomy tube were discussed. The gastrostomy tube would require going to the operating room and having a procedure. There are also going to talk to Dr. Villasenor. Additional conversations lasting approximately 20 minutes were had on the phone when the patient's son called to inform me of his decision. After talking to his brother and his [id number] they have opted to agreed to a surgical procedure. Dr. Villasenor will take the patient to the operating room later today. During the earlier discussion, his son wondered if the patient pulling out his PEG tube was his way of saying that he does not want to continue aggressive treatment. I told him because of the aphasia it is difficult to tell. We did ask him directly but the patient did not give a clear response. Care Planning Goals: Specifically decisions about reinstituting a means of providing nutrition for the patient Document(s) Completed: None Time Spent: 50 minutes
--- NOTE | 2019-07-07 16:16 | PDOC PROGRESS REPORT ---
Subjective Progress Note for:: 07/07/19 Subjective:: The patient had his gastrostomy tube placed yesterday. He is resting comfortably. His son is at the bedside. He reports that he was up and interactive earlier has just fallen asleep. Reason For Visit: To review gastrostomy tube. Consider next stages of treatment plan including getting the patient to [facility] Physical Exam Vital Signs: Temp Pulse Resp BP Pulse Ox 98.6 F 72 16 134/53 H 95 07/07/19 15:13 07/07/19 15:13 07/07/19 15:13 07/07/19 15:13 07/07/19 15:13 Intake & Output 07/06/19 07/07/19 07/08/19 06:59 06:59 06:59 Intake Total 1213 2800 1082 Output Total 650 885 200 Balance 563 1915 882 Weight 84.1 kg 85.3 kg General appearance: PRESENT: no acute distress, well-developed Head exam: PRESENT: atraumatic, normocephalic Respiratory exam: PRESENT: clear to auscultation gurpreet - Anteriorly, symmetrical, unlabored. ABSENT: rales, rhonchi, tachypnea, wheezes Cardiovascular exam: PRESENT: irregular rhythm GI/Abdominal exam: PRESENT: diminished bowel sounds, soft, other - New gastrost dejuan tube is in place. Dressing over the surgical site. I did not take the dressing down to examine.. ABSENT: distended Rectal exam: PRESENT: deferred Gentrourinary exam: PRESENT: indwelling catheter Neurological exam: ABSENT: awake Psychiatric exam: ABSENT: agitated Focused psych exam: ABSENT: restlessness Skin exam: PRESENT: dry, warm. ABSENT: rash Results Laboratory Results: 07/07/19 05:00 07/07/19 05:00 07/07/19 07/07/19 05:00 05:00 WBC 11.4 H RBC 4.14 L Hgb 10.2 L Hct 31.5 L MCV 76 L MCH 24.8 L MCHC 32.5 RDW 16.5 H Plt Count 303 Seg Neutrophils % Not Reportable Lymphocytes % Not Reportable Monocytes % Not Reportable Eosinophils % Not Reportable Basophils % Not Reportable Absolute Neutrophils Not Reportable Absolute Lymphocytes Not Reportable Absolute Monocytes Not Reportable Absolute Eosinophils Not Reportable Absolute Basophils Not Reportable Sodium 145.9 H Potassium 4.2 Chloride 110 H Carbon Dioxide 27 Anion Gap 9 BUN 24 H Creatinine 1.02 Est GFR ( Amer) > 60 Est GFR (Non-Af Amer) > 60 Glucose 212 H Calcium 7.8 L Magnesium 1.9 06/24/19 06/24/19 06/24/19 10:20 13:24 13:24 Creatine Kinase 174 H CK-MB (CK-2) 3.50 Troponin I 0.084 0.122 NT-Pro-B Natriuret Pep 06/24/19 06/24/19 06/25/19 18:50 18:50 00:58 Creatine Kinase 173 H 233 H CK-MB (CK-2) 3.63 Troponin I 0.122 NT-Pro-B Natriuret Pep 06/25/19 06/25/19 00:58 06:15 Creatine Kinase CK-MB (CK-2) 3.50 Troponin I 0.148 NT-Pro-B Natriuret Pep 7250 H Impressions: Head CTA 06/24/19 00:00 IMPRESSION: NO CTA EVIDENCE OF STENOSIS OR ANEURYSM OF THE [place]. Neck CTA 06/24/19 00:00 IMPRESSION: No evidence of carotid artery stenosis or dissection. Cervical Spine CT 06/24/19 10:07 IMPRESSION: CHRONIC DEGENERATIVE CHANGES. NO ACUTE FINDINGS. Head CT 06/24/19 10:07 IMPRESSION: CHRONIC CHANGES OF ATROPHY AND MICROVASCULAR ISCHEMIA. NO ACUTE PROCESS. EVIDENCE OF ACUTE STROKE: NO. Forearm X-Ray 06/24/19 11:24 IMPRESSION: Possible nondisplaced fracture of the distal radius. Consider radiographs of the wrist. Head MRI 06/24/19 12:04 IMPRESSION: ATROPHY AND CHRONIC MICRO-VASCULAR ISCHEMIC CHANGES. Positive for restricted diffusion internal capsule on the left. Acute infarction. EVIDENCE OF ACUTE STROKE: YES. LEFT MCA. Wrist X-Ray 06/24/19 12:23 IMPRESSION: Degenerative arthritis of the right wrist. Modified Barium Swallow 06/28/19 00:00 IMPRESSION: ASPIRATION WITH THIN BARIUM. PLEASE SEE SPEECH PATHOLOGIST REPORT FOR OTHER FINDINGS AND RECOMMENDATIONS. Chest X-Ray 07/02/19 07:00 IMPRESSION: Cardiomegaly with mild pulmonary edema. Assessment and Plan - Diagnosis (1) CVA (cerebral vascular accident) Qualifiers: CVA mechanism: embolism Precerebral and cerebral artery: middle cerebral artery Laterality of affected vessel: left Qualified Code(s): I63.412 - Cerebral infarction due to embolism of left middle cerebral artery Is this a current diagnosis for this admission?: Yes Plan: The patient has right-sided weakness as a result of his stroke. He also has dysphagia and aphasia. Physical therapy continues to work with the patient. The goal would be for skilled facility after discharge. 07/04/2019-concerns that patient is declining rather than making progress. Part of this could be nutritional as his diet has been limited by his swallow. We will place a PEG tube for the dysphagia. 07/05/2019-I did discuss the case with speech therapy. In addition to concerns about the swallow, he does now have a PEG tube, she worries because she has noticed a consistent decline in the patient as opposed to recovery. If there is no problem with the PEG tube the patient should transfer to [facility] tomorrow. 07/06/2019-unfortunately patient pulled out his PEG. With his aphasia it is very difficult to know if he is doing this on purpose and trying to let people know that he is tired of his hospitalization and wishes to change his treatment plan. Unfortunately the PEG tube was the route for his nutrition and medications. His swallow was not very safe. Several hours were spent in discussion with his sons by Dr. Villasenor and myself. It was finally decided that because of the dysphasia the family wanted to go ahead with a surgical closure of the original PEG tube site and then placement of a new gastrostomy tube. This will be done this afternoon. Unfortunately this delays his transfer to [facility]. 07/07/2019-the patient continues with therapy. Now that he has a gastrostomy tube we are back on track for [facility]. The patient needs to be out of restraints for 24 hours in order for this transfer to occur. We will continue physical, occupational and speech therapies. If the remainder of the weekend is uneventful hopefully we can transfer on Tuesday. 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 The swallow is compromised. Currently on modified diet. We will continue to work with speech therapy. 07/04/2019-as noted above the swallow is likely significantly affecting his recovery. I have opted to place a PEG tube. I discussed it with his son who is in agreement. 07/05/2019-PEG tube in place. Now speech therapy can work on the swallow as the patient gets all of his required nutrition through the PEG tube. 07/06/2019-as noted above the patient pulled his PEG tube. Options would be to replace the gastrostomy tube (which was in fact chosen) versus nasogastric tubes. The patient is most likely pull out the nasogastric tubes. We are going to try and protect the new tube that will be placed surgically later today. In addition to an abdominal binder I would likely institute some medications to try and ease the patient's agitation. 07/07/2019-new gastrostomy tubes in place. We will resume tube feedings at 10 mL an hour with small volume flushes and not escalate the rate today. We will likely begin to slowly increase the rate tomorrow. (3) Acute kidney injury Is this a current diagnosis for this admission?: Yes Plan: Serum creatinine is down to 1.37. We will continue to monitor. 07/04/2019-we will continue to monitor. Trying to avoid too frequent lab testing but will recheck tomorrow. Will be able to give free water once the PEG tube is in place. 07/05/2019. We will check labs and administer free water through the PEG tube so that we can discontinue IV fluids. 07/06/2019-the serum creatinine is back to normal. The BUN is continuing to trend towards normal. We will continue the D5 half-normal saline and once the gastrostomy tube is in place we will institute free water. 07/07/2019-serum creatinine remains normal. BUN continues to improve and is close to normal. We will continue D5 half-normal saline until adequate free water flushes can be given through the gastrostomy tube. (4) Atrial fibrillation Qualifiers: Atrial fibrillation type: chronic Qualified Code(s): I48.2 - Chronic atrial fibrillation Is this a current diagnosis for this admission?: Yes Plan: Chronic atrial fibrillation. Rate is well controlled. Due to hematuria no anticoagulation at this time. 07/04/2019-because of the excellent rate control patient does appear to be in sinus rhythm by auscultation however monitor reveals underlying fibrillation. 07/05/2019-excellent rate control. Hematuria has resolved so will likely restart anticoagulation. Consider using a newer agent to avoid frequent testing required with warfarin. 07/06/2019-the patient remains in atrial fibrillation with good rate control. I will start anticoagulation now that is most likely that there will be no more surgical procedures. Continue other cardiac medications. Because of the recent hematuria I am going to start Eliquis at 2.5 mg twice daily and monitor for bleeding. 07/07/2019-excellent rate control. As he is 1 day postop I am going to institute low-dose Eliquis at 2.5 mg twice daily. We will monitor for hematuria or any other signs of bleeding. (5) Hypernatremia Is this a current diagnosis for this admission?: Yes Plan: Serum sodium is slightly improved. We will continue to monitor. Fluid intake is marginal. Patient also getting continuous bladder irrigation. This may af fect electrolytes. 07/04/2019-no labs today. We will recheck and adjust fluids accordingly. 07/05/2019-we will adjust free water associated with tube feeding based on serum sodium levels. 07/06/2019-patient serum sodium is slowly improving. Continue D5 half-normal saline. 07/07/2019-serum sodium is just above the upper limit normal. We will continue current fluid management and recheck tomorrow. (6) Contusion of right arm Qualifiers: Encounter type: initial encounter Qualified Code(s): S40.021A - Contusion of right upper arm, initial encounter Is this a current diagnosis for this admission?: Yes Plan: Continue to monitor. Appears to be improving. 07/04/2019-conservative care at this point. 07/05/2019-as above. No change. (7) HTN (hypertension) Is this a current diagnosis for this admission?: Yes Plan: Continue current regimen. Blood pressure under reasonable control. 07/04/2019-acceptable blood control. Continue current regimen. 07/05/2019-continue current regimen as blood pressure is reasonably controlled 07/06/2019-blood pressure and pulse with good control. Continue same regimen. 07/07/2019-continue current medication regimen. (8) Hematuria Qualifiers: Hematuria type: gross Qualified Code(s): R31.0 - Gross hematuria Is this a current diagnosis for this admission?: Yes Plan: The patient is getting continuous bladder irrigation. Urine is still tea colored but appears to be improving. Holding anticoagulation at this time. 07/04/2019-appears to be resolving. Will likely stop continuous bladder irrigation. Will leave Mobley catheter in due to patient's immobility and high risk for skin breakdown. 07/05/2019-discontinue continuous bladder irrigation and monitor urine output for blood. 07/06/2019-no evidence of gross hematuria. I am going to resume anticoagulation for the atrial fibrillation and monitor closely for hematuria. 07/07/2019-back on Eliquis. Will monitor for hematuria. (9) Hypokalemia Is this a current diagnosis for this admission?: Yes Plan: Serum potassium still marginal. Oral intake varies. We will recheck serum potassium. 07/04/2019-limited diet likely affecting electrolytes. Continue IV fluid. Recheck labs tomorrow. 07/05/2019-check electrolytes and adjust potassium supplementation accordingly. 07/06/2019-serum potassium remains normal. Continue to monitor. 07/07/2019-continue to monitor potassium. Currently normal. (10) Elevated PSA Is this a current diagnosis for this admission?: Yes Plan: Consider outpatient follow-up. At this age active intervention is unlikely. 07/04/2019-as above 07/05/2019-plan noted above 07/06/2019-we did try and initiate Flomax therapy for suspected BPH. This cannot be crushed and put through PEG tube. Will hold for now and consider options. 07/07/2019-as noted above. (11) Acute confusional state of cerebrovascular origin Is this a current diagnosis for this admission?: Yes Plan: The patient was noted to have an altered mental status on admission. I believe this is related to his stroke. 07/04/2019-patient certainly maintains eye contact at least temporarily. I believe he comprehends our discussion. The acute confusional state is likely resolved. 07/05/2019-the patient's confusion seems to be resolved. Difficult to fully assess due to aphasia. Hopefully with improved nutrition he will regain better communication skills. 07/06/2019-the patient appeared to understand will be talked to him about the need to replace the PEG tube. He had a very angry affect. He still has episodes of agitation and pulls at things. It is hard to know his mental state at that time because he is aphasic. 07/07/2019-the patient clearly has episodes of lucidity. He also can be agitated. It is hard to know if there is confusion with his agitation or just frustration from his current situation. - Time Time Spent with patient: 25-34 minutes Medications reviewed and adjusted accordingly: Yes Anticipated discharge: SNF - Plan Summary Plan Summary: I did talk to the patient's son who was at the bedside. He was sitting at the bedside for all of the morning. He realizes how quickly the patient can reach for a tube. He noted that his father was trying to reach for the gastrostomy tube several times. We discussed management of the current situation. I believe the patient has an element of depression that could be driving his frustration. I will add low-dose antidepressant. In addition I will add trazodone on a scheduled basis to try and control some of the agitation.
[2019-07-07] MEDS: APIXABAN 2.5 MG TABLET PO SCH (17:40)
[2019-07-07] MEDS: SIMVASTATIN 10 MG TABLET PEG SCH (22:34)
[2019-07-07] MEDS: TRAZODONE HCL 50 MG TABLET PEG SCH (22:35)
[2019-07-08] MEDS: INSULIN LISPRO 100 UNIT/ML 3 ML VIAL SUBCUT SCH ×4 (00:53→18:57)
[2019-07-08 06:35] LABS: HEMATOCRIT 29.2 % (37.9-51.0); HEMOGLOBIN 9.3 g/dL (13.5-17.0); MEAN CORPUSCULAR HEMOGLOBIN 24.5 pg (27.0-33.4); MEAN CORPUSCULAR VOLUME 77 fl (80-97); PLATELET COUNT 294 10^3/uL (150-450); RED BLOOD COUNT 3.82 10^6/uL (4.35-5.55); RED CELL DISTRIBUTION WIDTH 16.7 % (11.5-14.0)
[2019-07-08 06:56] LABS: ALBUMIN 2.6 g/dL (3.5-5.0); ALKALINE PHOSPHATASE 52 U/L (38-126); ANION GAP 6 (5-19); ASPARTATE AMINO TRANSFERASE 29 U/L (17-59); BILIRUBIN,DIRECT 0.3 mg/dL (0.0-0.4); BILIRUBIN,TOTAL 0.9 mg/dL (0.2-1.3); BLOOD UREA NITROGEN 18 mg/dL (7-20); CALCIUM 7.4 mg/dL (8.4-10.2); CARBON DIOXIDE 30 mmol/L (22-30); CHLORIDE 108 mmol/L (98-107); GLUCOSE 152 mg/dL (75-110); POTASSIUM 3.4 mmol/L (3.6-5.0); TOTAL PROTEIN 5.4 g/dL (6.3-8.2)
[2019-07-08] MEDS: DEXTROSE 5%-1/2 NORMAL SALINE 1,000 ML IV PRN (07:25)
--- NOTE | 2019-07-08 09:06 | PDOC PROGRESS REPORT ---
Subjective Progress Note for:: 07/08/19 Reason For Visit: STROKE Physical Exam Vital Signs: Temp Pulse Resp BP Pulse Ox 99.0 F 96 22 H 173/85 H 94 07/08/19 08:06 07/08/19 08:06 07/08/19 08:06 07/08/19 08:06 07/08/19 08:06 Intake & Output 07/07/19 07/08/19 07/09/19 06:59 06:59 06:59 Intake Total 2800 3292 Output Total 885 975 Balance 1915 2317 Weight 85.3 kg 88.3 kg General appearance: PRESENT: no acute distress Eye exam: PRESENT: EOMI Mouth exam: PRESENT: moist Neck exam: PRESENT: full ROM Respiratory exam: PRESENT: rhonchi Cardiovascular exam: PRESENT: RRR GI/Abdominal exam: PRESENT: other - gtube in place wound clean dry Rectal exam: PRESENT: deferred Extremities exam: PRESENT: full ROM Musculoskeletal exam: PRESENT: full ROM Skin exam: PRESENT: dry Results Laboratory Results: 07/08/19 05:22 07/08/19 05:22 07/08/19 07/08/19 05:22 05:22 WBC 9.0 RBC 3.82 L Hgb 9.3 L Hct 29.2 L MCV 77 L MCH 24.5 L MCHC 32.0 RDW 16.7 H Plt Count 294 Sodium 144.1 Potassium 3.4 L Chloride 108 H Carbon Dioxide 30 Anion Gap 6 BUN 18 Creatinine 0.95 Est GFR ( Amer) > 60 Est GFR (Non-Af Amer) > 60 Glucose 152 H Calcium 7.4 L Magnesium 1.7 Total Bilirubin 0.9 AST 29 Alkaline Phosphatase 52 Total Protein 5.4 L Albumin 2.6 L 06/24/19 06/24/19 06/24/19 10:20 13:24 13:24 Creatine Kinase 174 H CK-MB (CK-2) 3.50 Troponin I 0.084 0.122 NT-Pro-B Natriuret Pep 06/24/19 06/24/19 06/25/19 18:50 18:50 00:58 Creatine Kinase 173 H 233 H CK-MB (CK-2) 3.63 Troponin I 0.122 NT-Pro-B Natriuret Pep 06/25/19 06/25/19 00:58 06:15 Creatine Kinase CK-MB (CK-2) 3.50 Troponin I 0.148 NT-Pro-B Natriuret Pep 7250 H Impressions: Head CTA 06/24/19 00:00 IMPRESSION: NO CTA EVIDENCE OF STENOSIS OR ANEURYSM OF THE [place]. Neck CTA 06/24/19 00:00 IMPRESSION: No evidence of carotid artery stenosis or dissection. Cervical Spine CT 06/24/19 10:07 IMPRESSION: CHRONIC DEGENERATIVE CHANGES. NO ACUTE FINDINGS. Head CT 06/24/19 10:07 IMPRESSION: CHRONIC CHANGES OF ATROPHY AND MICROVASCULAR ISCHEMIA. NO ACUTE PROCESS. EVIDENCE OF ACUTE STROKE: NO. Forearm X-Ray 06/24/19 11:24 IMPRESSION: Possible nondisplaced fracture of the distal radius. Consider radiographs of the wrist. Head MRI 06/24/19 12:04 IMPRESSION: ATROPHY AND CHRONIC MICRO-VASCULAR ISCHEMIC CHANGES. Positive for restricted diffusion internal capsule on the left. Acute infarction. EVIDENCE OF ACUTE STROKE: YES. LEFT MCA. Wrist X-Ray 06/24/19 12:23 IMPRESSION: Degenerative arthritis of the right wrist. Modified Barium Swallow 06/28/19 00:00 IMPRESSION: ASPIRATION WITH THIN BARIUM. PLEASE SEE SPEECH PATHOLOGIST REPORT FOR OTHER FINDINGS AND RECOMMENDATIONS. Chest X-Ray 07/02/19 07:00 IMPRESSION: Cardiomegaly with mild pulmonary edema. Assessment & Plan - Plan Summary Plan Summary: s/p gtube placement not luanne trickle feeds can advance feeding slowely will increase today to 30cc/hr can increase to goal rate if he tolerates that surgery will sign off, please reconsult as necessary.
[2019-07-08] MEDS: PANTOPRAZOLE SODIUM 40 MG VIAL IV SCH (11:08)
[2019-07-08] MEDS: DIGOXIN INJ 0.5 MG/2 ML AMPULE IV SCH (11:08)
[2019-07-08] MEDS: FAMOTIDINE INJ/PF 20 MG/2 ML SDV IV SCH (11:08)
[2019-07-08] MEDS: APIXABAN 2.5 MG TABLET PO SCH ×2 (11:09→17:11)
[2019-07-08] MEDS: ATENOLOL 50 MG TABLET PEG SCH (11:09)
[2019-07-08] MEDS: ESCITALOPRAM OXALATE 10 MG TABLET PEG SCH (11:10)
[2019-07-08] MEDS: ASPIRIN 81 MG TABLET, CHEWABLE PEG SCH (11:10)
[2019-07-08] MEDS: AMLODIPINE BESYLATE 10 MG TABLET PEG SCH (11:10)
[2019-07-08] MEDS: TRAZODONE HCL 50 MG TABLET PEG SCH ×2 (11:10→21:37)
[2019-07-08] MEDS ORDERED: BISACODYL 10 MG SUPP.RECT PR PRN (13:27)
[2019-07-08] MEDS: HALOPERIDOL LACTATE INJ 5 MG/1 ML VIAL IV PRN (13:55)
[2019-07-08] MEDS ORDERED: DEXTROSE 5%-1/2 NORMAL SALINE 1,000 ML IV PRN (14:13)
--- NOTE | 2019-07-08 17:00 | PDOC PROGRESS REPORT ---
Subjective Progress Note for:: 07/08/19 Subjective:: Patient resting comfortably. He did awaken easily and provided yes and no answers to questions by shaking his head. Not agitated at this time. Reason For Visit: STROKE Physical Exam Vital Signs: Temp Pulse Resp BP Pulse Ox 97.8 F 71 18 139/86 H 93 07/08/19 11:35 07/08/19 11:35 07/08/19 11:35 07/08/19 11:35 07/08/19 11:35 Intake & Output 07/07/19 07/08/19 07/09/19 06:59 06:59 06:59 Intake Total 2800 3292 198 Output Total 885 975 Balance 1915 2317 198 Weight 85.3 kg 88.3 kg General appearance: PRESENT: no acute distress, well-developed - Frail appearing 79-year-old patient Head exam: PRESENT: normocephalic Ear exam: PRESENT: normal external ear exam Mouth exam: PRESENT: dry mucosa Respiratory exam: PRESENT: clear to auscultation gurpreet, symmetrical, unlabored. ABSENT: accessory muscle use, rales, rhonchi, tachypnea, wheezes Cardiovascular exam: PRESENT: irregular rhythm GI/Abdominal exam: PRESENT: hypoactive bowel sounds, soft, other - Abdominal binder in place. I did not remove it as the patient has a propensity to pull on his tubes.. ABSENT: tenderness Gentrourinary exam: PRESENT: indwelling catheter - Still with dark yellow- colored urine Extremities exam: ABSENT: joint swelling, pedal edema Musculoskeletal exam: PRESENT: normal inspection Neurological exam: PRESENT: awake, motor sensory deficit - Was able to squeeze my fingers. Strength rated at 2/5., aphasic. ABSENT: alert Psychiatric exam: PRESENT: flat affect. ABSENT: agitated, anxious Focused psych exam: PRESENT: restlessness - Slightly restless in bed Skin exam: PRESENT: other - Occasional ecchymotic lesions on his arms Results Laboratory Results: 07/08/19 05:22 07/08/19 05:22 07/08/19 07/08/19 05:22 05:22 WBC 9.0 RBC 3.82 L Hgb 9.3 L Hct 29.2 L MCV 77 L MCH 24.5 L MCHC 32.0 RDW 16.7 H Plt Count 294 Sodium 144.1 Potassium 3.4 L Chloride 108 H Carbon Dioxide 30 Anion Gap 6 BUN 18 Creatinine 0.95 Est GFR ( Amer) > 60 Est GFR (Non-Af Amer) > 60 Glucose 152 H Calcium 7.4 L Magnesium 1.7 Total Bilirubin 0.9 AST 29 Alkaline Phosphatase 52 Total Protein 5.4 L Albumin 2.6 L 06/24/19 06/24/19 06/24/19 10:20 13:24 13:24 Creatine Kinase 174 H CK-MB (CK-2) 3.50 Troponin I 0.084 0.122 NT-Pro-B Natriuret Pep 06/24/19 06/24/19 06/25/19 18:50 18:50 00:58 Creatine Kinase 173 H 233 H CK-MB (CK-2) 3.63 Troponin I 0.122 NT-Pro-B Natriuret Pep 06/25/19 06/25/19 00:58 06:15 Creatine Kinase CK-MB (CK-2) 3.50 Troponin I 0.148 NT-Pro-B Natriuret Pep 7250 H Impressions: Head CTA 06/24/19 00:00 IMPRESSION: NO CTA EVIDENCE OF STENOSIS OR ANEURYSM OF THE [place]. Neck CTA 06/24/19 00:00 IMPRESSION: No evidence of carotid artery stenosis or dissection. Cervical Spine CT 06/24/19 10:07 IMPRESSION: CHRONIC DEGENERATIVE CHANGES. NO ACUTE FINDINGS. Head CT 06/24/19 10:07 IMPRESSION: CHRONIC CHANGES OF ATROPHY AND MICROVASCULAR ISCHEMIA. NO ACUTE PROCESS. EVIDENCE OF ACUTE STROKE: NO. Forearm X-Ray 06/24/19 11:24 IMPRESSION: Possible nondisplaced fracture of the distal radius. Consider radiographs of the wrist. Head MRI 06/24/19 12:04 IMPRESSION: ATROPHY AND CHRONIC MICRO-VASCULAR ISCHEMIC CHANGES. Positive for restricted diffusion internal capsule on the left. Acute infarction. EVIDENCE OF ACUTE STROKE: YES. LEFT MCA. Wrist X-Ray 06/24/19 12:23 IMPRESSION: Degenerative arthritis of the right wrist. Modified Barium Swallow 06/28/19 00:00 IMPRESSION: ASPIRATION WITH THIN BARIUM. PLEASE SEE SPEECH PATHOLOGIST REPORT FOR OTHER FINDINGS AND RECOMMENDATIONS. Chest X-Ray 07/02/19 07:00 IMPRESSION: Cardiomegaly with mild pulmonary edema. 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 He also has dysphagia and aphasia. Physical therapy continues to work with the patient. The goal would be for skilled facility after discharge. 07/04/2019-concerns that patient is declining rather than making progress. Part of this could be nutritional as his diet has been limited by his swallow. We will place a PEG tube for the dysphagia. 07/05/2019-I did discuss the case with speech therapy. In addition to concerns about the swallow, he does now have a PEG tube, she worries because she has noticed a consistent decline in the patient as opposed to recovery. If there is no problem with the PEG tube the patient should transfer to [facility] tomorrow. 07/06/2019-unfortunately patient pulled out his PEG. With his aphasia it is very difficult to know if he is doing this on purpose and trying to let people know that he is tired of his hospitalization and wishes to change his treatment plan. Unfortunately the PEG tube was the route for his nutrition and medications. His swallow was not very safe. Several hours were spent in discussion with his sons by Dr. Villasenor and myself. It was finally decided that because of the dysphasia the family wanted to go ahead with a surgical closure of the original PEG tube site and then placement of a new gastrostomy tube. This will be done this afternoon. Unfortunately this delays his transfer to [facility]. 07/07/2019-the patient continues with therapy. Now that he has a gastrostomy tube we are back on track for [facility]. The patient needs to be out of restraints for 24 hours in order for this transfer to occur. We will continue physical, occupational and speech therapies. If the remainder of the weekend is uneventful hopefully we can transfer on Tuesday. 07/08/2019-left internal capsule stroke. The plan is for detention at [facility]. If there are no complications tonight and the patient tolerates his advanced tube feed volumes he will likely transfer tomorrow. 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 The swallow is compromised. Currently on modified diet. We will continue to work with speech therapy. 07/04/2019-as noted above the swallow is likely significantly affecting his recovery. I have opted to place a PEG tube. I discussed it with his son who is in agreement. 07/05/2019-PEG tube in place. Now speech therapy can work on the swallow as the p atsasha gets all of his required nutrition through the PEG tube. 07/06/2019-as noted above the patient pulled his PEG tube. Options would be to replace the gastrostomy tube (which was in fact chosen) versus nasogastric tubes. The patient is most likely pull out the nasogastric tubes. We are going to try and protect the new tube that will be placed surgically later today. In addition to an abdominal binder I would likely institute some medications to try and ease the patient's agitation. 07/07/2019-new gastrostomy tubes in place. We will resume tube feedings at 10 mL an hour with small volume flushes and not escalate the rate today. We will likely begin to slowly increase the rate tomorrow. 07/08/2019-hopefully the gastrostomy tube will remain in place. Speech therapy at [facility] can continue to work on the patient's swallow and aphasia. (3) Acute kidney injury Is this a current diagnosis for this admission?: Yes Plan: Serum creatinine is down to 1.37. We will continue to monitor. 07/04/2019-we will continue to monitor. Trying to avoid too frequent lab testing but will recheck tomorrow. Will be able to give free water once the PEG tube is in place. 07/05/2019. We will check labs and administer free water through the PEG tube so that we can discontinue IV fluids. 07/06/2019-the serum creatinine is back to normal. The BUN is continuing to trend towards normal. We will continue the D5 half-normal saline and once the gastrostomy tube is in place we will institute free water. 07/07/2019-serum creatinine remains normal. BUN continues to improve and is close to normal. We will continue D5 half-normal saline until adequate free water flushes can be given through the gastrostomy tube. 07/08/2019-the patient was given increased IV fluids. He has had a net negative fluid balance of at least 1/2 to 2 L over the last several days. We are going to drop the fluids to 25 mL/h for KVO. The next step will be to slowly increase the free water boluses through the gastrostomy tube. I am going to let his fluid balance drift down and if need be we can administer intermittent diuretic therapy. Continue to monitor renal function. (4) Atrial fibrillation Qualifiers: Atrial fibrillation type: chronic Qualified Code(s): I48.2 - Chronic atrial fibrillation Is this a current diagnosis for this admission?: Yes Plan: Chronic atrial fibrillation. Rate is well controlled. Due to hematuria no anticoagulation at this time. 07/04/2019-because of the excellent rate control patient does appear to be in sinus rhythm by auscultation however monitor reveals underlying fibrillation. 07/05/2019-excellent rate control. Hematuria has resolved so will likely restart anticoagulation. Consider using a newer agent to avoid frequent testing required with warfarin. 07/06/2019-the patient remains in atrial fibrillation with good rate control. I will start anticoagulation now that is most likely that there will be no more surgical procedures. Continue other cardiac medications. Because of the recent hematuria I am going to start Eliquis at 2.5 mg twice daily and monitor for bleeding. 07/07/2019-excellent rate control. As he is 1 day postop I am going to institute low-dose Eliquis at 2.5 mg twice daily. We will monitor for hematuria or any other signs of bleeding. 07/08/2019-good rate control. I did start him back on Eliquis 2.5 mg twice daily. I did note that he is having microscopic hematuria. Talked to the patient's [id number] who is a nurse and we are going to keep the low-dose Eliquis at this time. We can always stop the Eliquis if the hematuria increases and the hemoglobin drops. If he strokes off of the Eliquis it will almost guarantee and inability to recover from the stroke. (5) Hypernatremia Is this a current diagnosis for this admission?: Yes Plan: Serum sodium is slightly improved. We will continue to monitor. Fluid intake is marginal. Patient also getting continuous bladder irrigation. This may affect electrolytes. 07/04/2019-no labs today. We will recheck and adjust fluids accordingly. 07/05/2019-we will adjust free water associated with tube feeding based on serum sodium levels. 07/06/2019-patient serum sodium is slowly improving. Continue D5 half-normal saline. 07/07/2019-serum sodium is just above the upper limit normal. We will continue current fluid management and recheck tomorrow. 07/08/2019-with the additional fluid the patient's serum sodium in fact is back in the normal range. We will continue to monitor. (6) Contusion of right arm Qualifiers: Encounter type: initial encounter Qualified Code(s): S40.021A - Contusion of right upper arm, initial encounter Is this a current diagnosis for this admission?: Yes Plan: Continue to monitor. Appears to be improving. 07/04/2019-conservative care at this point. 07/05/2019-as above. No change. (7) HTN (hypertension) Is this a current diagnosis for this admission?: Yes Plan: Continue current regimen. Blood pressure under reasonable control. 07/04/2019-acceptable blood control. Continue current regimen. 07/05/2019-continue current regimen as blood pressure is reasonably controlled 07/06/2019-blood pressure and pulse with good control. Continue same regimen. 07/07/2019-continue current medication regimen. 07/08/2019-no changes at this time. (8) Hematuria Qualifiers: Hematuria type: gross Qualified Code(s): R31.0 - Gross hematuria Is this a current diagnosis for this admission?: Yes Plan: The patient is getting continuous bladder irrigation. Urine is still tea colored but appears to be improving. Holding anticoagulation at this time. 07/04/2019-appears to be resolving. Will likely stop continuous bladder irrigation. Will leave Mobley catheter in due to patient's immobility and high risk for skin breakdown. 07/05/2019-discontinue continuous bladder irrigation and monitor urine output for blood. 07/06/2019-no evidence of gross hematuria. I am going to resume anticoagulation for the atrial fibrillation and monitor closely for hematuria. 07/07/2019-back on Eliquis. Will monitor for hematuria. 07/08/2019-the patient does have microscopic hematuria. I had a long discussion with the patient's [id number], who is a nurse, regarding risk versus benefit. If the hematuria stays microscopic and the hemoglobin is stable I would consider continuing the Eliquis 2.5 mg twice daily for the atrial fibrillation. I have seen patients on a non-FDA approved 2.5 mg daily along with the aspirin. This is not evidence-based but it may decrease the hematuria. This will need to be followed by the physician at [facility] to make any further changes. (9) Hypokalemia Is this a current diagnosis for this admission?: Yes Plan: Serum potassium still marginal. Oral intake varies. We will recheck serum potassium. 07/04/2019-limited diet likely affecting electrolytes. Continue IV fluid. Recheck labs tomorrow. 07/05/2019-check electrolytes and adjust potassium supplementation accordingly. 07/06/2019-serum potassium remains normal. Continue to monitor. 07/07/2019-continue to monitor potassium. Currently normal. 07/08/2019-potassium was slightly low today. I added 20 mEq of potassium chloride through the gastrostomy tube daily. Continue to monitor electrolytes. (10) Elevated PSA Is this a current diagnosis for this admission?: Yes Plan: Consider outpatient follow-up. At this age active intervention is unlikely. 07/04/2019-as above 07/05/2019-plan noted above 07/06/2019-we did try and initiate Flomax therapy for suspected BPH. This cannot be crushed and put through PEG tube. Will hold for now and consider options. 07/07/2019-as noted above. (11) Acute confusional state of cerebrovascular origin Is this a current diagnosis for this admission?: Yes Plan: The patient was noted to have an altered mental status on admission. I believe this is related to his stroke. 07/04/2019-patient certainly maintains eye contact at least temporarily. I believe he comprehends our discussion. The acute confusional state is likely resolved. 07/05/2019-the patient's confusion seems to be resolved. Difficult to fully assess due to aphasia. Hopefully with improved nutrition he will regain better communication skills. 07/06/2019-the patient appeared to understand will be talked to him about the need to replace the PEG tube. He had a very angry affect. He still has episodes of agitation and pulls at things. It is hard to know his mental state at that time because he is aphasic. 07/07/2019-the patient clearly has episodes of lucidity. He also can be agitated. It is hard to know if there is confusion with his agitation or just frustration from his current situation. 07/08/2019-again today the patient maintained eye contact and struck his head yes and no to answer some questions. (12) Constipation Qualifiers: Constipation type: other constipation type Qualified Code(s): K59.09 - Other constipation Is this a current diagnosis for this admission?: Yes Plan: 07/08/2019-because of the intermittent nutrition over the last several days it is not surprising that the patient has not had a bowel movement however he is back on tube feeds want to make sure his bowels are functional. We will try a Dulcolax suppository and start small amount of MiraLAX through the PEG tube. (13) Hypocalcemia Is this a current diagnosis for this admission?: Yes Plan: 07/08/2019-the hypocalcemia could be due to the critical illness with inconsistent nutrition. I will add calcium carbonate with vitamin D daily and monitor electrolytes. - Time Time Spent with patient: 25-34 minutes Medications reviewed and adjusted accordingly: Yes Anticipated discharge: SNF
--- NOTE | 2019-07-08 17:06 | ADVANCED CARE ---
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 Diagnosis Current: Yes (3) Acute kidney injury Diagnosis Current: Yes (4) Atrial fibrillation Diagnosis Current: Yes (5) Hypernatremia Diagnosis Current: Yes (6) Contusion of right arm Diagnosis Current: Yes (7) HTN (hypertension) Diagnosis Current: Yes (8) Hematuria Diagnosis Current: Yes (9) Hypokalemia Diagnosis Current: Yes (10) Elevated PSA Diagnosis Current: Yes (11) Acute confusional state of cerebrovascular origin Diagnosis Current: Yes (12) Constipation Diagnosis Current: Yes (13) Hypocalcemia Diagnosis Current: Yes Attendance: In addition to the patient's son, his [id number] was able to here today. She has a nursing background. Resuscitation Status: Full Code Discussion: The patient's [id number] had multiple questions. We discussed all the factors contributing to his current illness. I did explain that within the next 7 to 14 days will have a good idea of his prognosis. At this point it can go either way. With his age and comorbidities it could and poorly. We discussed the fact that by pulling out his PEG tube was he trying to tell us something. She did ask what happens if he does not improve or deteriorates. I explained that I am sure [facility] has a process for hospice. Some facilities to inpatient hospice. Some facilities have hospice come evaluate the patient and consider transfer to inpatient hospice. I am not sure about the options near [facility]. The staff at [facility] would be more than happy to help with that information. We also discussed home hospice. I think hospice at home would be devastating for the patient's sons and would not be very good idea. I spoke plainly to the patient's [id number] and told her not to pursue that avenue. In addition she asked about complications. [facility] room close to [facility]. I told her that I would imagine the patient would go to the nearest facility which would be that emergency room. The patient would then be transferred to appropriate facility. I think 1 more complication would be devastating for the patient. Lastly she asked about physicians at the facility. I do not know any physicians on staff at that facility. I told her physician rounding can vary. There is a minimum required by Medicare but some physicians will visited facility weekly and see patients for the routine visits and take care of any acute issues. I told her to be inquisitive with the staff. Because they live close she will be able to visit every day. She will be the primary advocate for the patient. I think this is good because she has some insight into the possibility of limited or no recovery. Care Planning Goals: We are able to formulate a decision tree for the patient based on my interaction with the patient's [id number]. She will be seeing the patient on a daily basis. She will also health and wellness coach her and [id number] when it comes time to making [facility] decisions. Document(s) Completed: None Time Spent: 25 minutes
[2019-07-08] MEDS: POLYETHYLENE GLYCOL 3350 POWDER 17 GM/1 PACKET PEG SCH (17:10)
[2019-07-08] MEDS: SIMVASTATIN 10 MG TABLET PEG SCH (21:45)
[2019-07-09] MEDS: INSULIN LISPRO 100 UNIT/ML 3 ML VIAL SUBCUT SCH ×3 (00:25→13:40)
[2019-07-09 04:42] LABS: HEMATOCRIT 28.2 % (37.9-51.0); HEMOGLOBIN 9.2 g/dL (13.5-17.0); MEAN CORPUSCULAR HEMOGLOBIN 24.6 pg (27.0-33.4); MEAN CORPUSCULAR HGB CONC 32.7 g/dL (32.0-36.0); MEAN CORPUSCULAR VOLUME 75 fl (80-97); PLATELET COUNT 321 10^3/uL (150-450); RED BLOOD COUNT 3.76 10^6/uL (4.35-5.55); RED CELL DISTRIBUTION WIDTH 16.8 % (11.5-14.0); WHITE BLOOD COUNT 9.7 10^3/uL (4.0-10.5)
[2019-07-09 05:10] LABS: BLOOD UREA NITROGEN 17 mg/dL (7-20); CALCIUM 7.5 mg/dL (8.4-10.2); GLUCOSE 139 mg/dL (75-110); PHOSPHORUS 2.9 mg/dL (2.5-4.5); POTASSIUM 3.6 mmol/L (3.6-5.0)
[2019-07-09 05:16] LABS: ANION GAP 5 (5-19); CARBON DIOXIDE 30 mmol/L (22-30); CHLORIDE 107 mmol/L (98-107)
[2019-07-09] MEDS ORDERED: POTASSIUM CHLORIDE 20 MEQ PACKET PEG SCH (10:00)
[2019-07-09] MEDS ORDERED: CALCIUM CARBONATE 250 MG/VITAMIN D3 125 UNIT TABLET PEG SCH (10:00)
[2019-07-09] MEDS: DIGOXIN INJ 0.5 MG/2 ML AMPULE IV SCH (10:24)
[2019-07-09] MEDS: POLYETHYLENE GLYCOL 3350 POWDER 17 GM/1 PACKET PEG SCH (10:24)
[2019-07-09] MEDS: ASPIRIN 81 MG TABLET, CHEWABLE PEG SCH (10:25)
[2019-07-09] MEDS: AMLODIPINE BESYLATE 10 MG TABLET PEG SCH (10:25)
[2019-07-09] MEDS: TRAZODONE HCL 50 MG TABLET PEG SCH (10:25)
[2019-07-09] MEDS: APIXABAN 2.5 MG TABLET PO SCH (10:26)
[2019-07-09] MEDS: ESCITALOPRAM OXALATE 10 MG TABLET PEG SCH (10:26)
[2019-07-09] MEDS: PANTOPRAZOLE SODIUM 40 MG VIAL IV SCH (10:26)
[2019-07-09] MEDS: ATENOLOL 50 MG TABLET PEG SCH (10:26)
[2019-07-09 13:03] VITALS: BP 132/68
--- NOTE | 2019-07-09 14:51 | PDOC TRANSFER SUMMARY ---
General - Admit/Disc Date/PCP Admission Date/Primary Care Provider: 06/24/19 12:42 Discharge Date: 07/09/19 - Transfer to [facility] - Discharge Diagnosis (1) CVA (cerebral vascular accident) Is this a current diagnosis for this admission?: Yes Summary: The patient was admitted with an acute ischemic stroke. It was left middle cerebral artery in distribution. Unfortunately it has adversely affected his right arm and leg. In addition he has moderate aphasia. He also developed dysphagia and has a PEG tube. He is on aspirin and apixaban (at the lowest dose 2.5 mg twice daily). He is still having microscopic hematuria. I had a long discussion with the patient's family and the aspirin and apixaban will be continued. With microscopic hematuria the patient's hemoglobin is been stable. If the patient does develop gross hematuria than the anticoagulants can be stopped. This puts him at greater risk for stroke. I felt that if I stop the apixaban until the urine clears, and he had another stroke, it would be devastating for the patient and he would likely not recover. He did develop worsening swallow. A PEG tube was placed. Unfortunately after 48 hours he pulled the PEG tube out despite wearing abdominal binder. Long discussions were held with the family and the patient's sons want to proceed with placing another gastrostomy tube. This was done surgically. The patient has been tolerating tube feeds. He will benefit from ongoing physical, occupational and speech therapy. (2) Dysphagia as late effect of cerebrovascular disease Is this a current diagnosis for this admission?: Yes Summary: The patient's swallow actually deteriorated over the first few days. It became unsafe for him to swallow. A barium study was performed. Because he needs a nutrition we opted to place a PEG tube. Unfortunately the patient pulled it out. As noted above another gastrostomy tube was surgically placed. The patient is tolerating his tube feeds and is much calmer with the addition of trazodone. His risk of dislodging tubes and lines is significantly decreased. He is verbal at times. He will still need speech and swallowing therapy. As of now all medications that can be crushed or given through the gastrostomy tube. Necessary medications that cannot be crushed have been given through the intravenous. I believe that all of his medications can be administered through the gastrostomy tube. If not the physician at [facility] can make the appropriate substitutions. (3) Acute kidney injury Is this a current diagnosis for this admission?: Yes Summary: The patient underwent acute kidney injury while hospitalized. He began to receive IV fluids. I have been monitoring his IV fluids and electrolytes. His acute kidney injury has resolved completely. (4) Atrial fibrillation Is this a current diagnosis for this admission?: Yes Summary: The patient remains in atrial fibrillation but has good rate control. The big question is anticoagulation. As noted above he is on aspirin and apixaban. He is on the lowest dose of apixaban. He is still having microscopic hematuria. After discussing with the family and spending time considering the risk versus benefit I decided to continue the apixaban at its lowest dose as well as the aspirin. The apixaban and aspirin can always be stopped if jasiel hematuria develops. If they are stop down the patient has another stroke I believe that would be devastating and lead to the patient's demise. I will defer to the physician at [facility] for any additional changes. (5) Hypernatremia Is this a current diagnosis for this admission?: Yes Summary: The patient developed hyponatremia with the acute kidney injury. Once volume was repleted, mostly by the IV, the sodium normalized. The patient's fluid needs should be able to be met through free water boluses by the gastrostomy tube. (6) Contusion of right arm Is this a current diagnosis for this admission?: Yes Summary: The patient was found down at home. He evidently hit his arm and developed a contusion on the right arm. This is healing nicely and almost completely resolved. (7) HTN (hypertension) Is this a current diagnosis for this admission?: Yes Summary: During the patient's hospitalization medications needed to be changed to accommodate his atrial fibrillation and blood pressure. The current regimen that he is on has kept his blood pressure reasonably controlled. Continue to monitor blood pressure and adjust medications accordingly. (8) Hematuria Is this a current diagnosis for this admission?: Yes Summary: The patient developed hematuria and required continuous bladder irrigation. He is now down to microscopic hematuria. Despite this his hemoglobin has been stable. His PSA was elevated and likely has prostatic hypertrophy. I have started terazosin therapy (since Flomax cannot be crushed) and I suggest that the Mobley catheter be removed after approximately 3 days of terazosin therapy. This should help improve any obstructive uropathy. I believe once a Mobley catheter is out the microscopic hematuria should resolve. (9) Obstructive uropathy Is this a current diagnosis for this admission?: Yes Summary: As noted above the patient required placement of Mobley catheter. This is likely obstructive uropathy from enlarged prostate. Because the Mobley placement was t raumatic and the patient developed gross hematuria requiring continuous bladder irrigation I am going to start terazosin therapy. I would remove the Mobley catheter after 3 days of terazosin. I believe in the Mobley catheter was removed, if the patient is able to void without difficulty, the hematuria should resolve. (10) Elevated PSA Is this a current diagnosis for this admission?: Yes Summary: Patient was found to have an elevated PSA. This is likely from benign prostatic hypertrophy as noted by significant difficulty placing the Mobley catheter. If this represents a prostate malignancy it would not be treated at the patient's current age. The clinical concern is enlarged prostate causing obstructive uropathy. As noted above the patient is started on terazosin 1 mg daily. I would remove the catheter 2 to 3 days after initiation of treatment. The hope is that the bladder will be able to empty normally and I believe the microscopic hematuria will resolve as well. (11) Hypokalemia Is this a current diagnosis for this admission?: Yes Summary: The patient developed transient hypokalemia. Once fluid balance was achieved and tube feeding was initiated the 20 mEq potassium supplement has kept his serum potassium normal. (12) Acute confusional state of cerebrovascular origin Is this a current diagnosis for this admission?: Yes Summary: The patient had intermittent episodes of confusion and agitation. He was quite clear this morning. I started trazodone to help with mood stabilization and it appears to be working quite nicely. I also believe the patient will benefit from the antidepressant effect. The family reports that the patient has been independent at home. Additional antidepressant medication might be considered based on the patient's emotional state during the first few days of admission to [facility]. (13) Constipation Is this a current diagnosis for this admission?: Yes Summary: The patient was recently experiencing constipation. This is surprising being that he is on tube feeds. He has responded to a Dulcolax suppository and low- dose MiraLAX. Medications can be adjusted based on bowel habits and stool consistency. (14) Hypocalcemia Is this a current diagnosis for this admission?: Yes Summary: The patient developed mild hypocalcemia. I have started a calcium supplement. Continue to monitor calcium. - Additional Information Resuscitation Status: Full Code Discharge Diet: Tube Feeding (Comments) Discharge Activity: Activity As Tolerated, Balance Activity w/Rest Prescriptions: Terazosin HCl 1 mg PEG DAILY 30 Days #30 capsule Home Medications: Atorvastatin Calcium [Lipitor 20 mg Tablet] 20 mg PO DAILY 06/24/19 Digoxin [Lanoxin 0.25 mg Tablet] 0.25 mg PO DAILY 06/24/19 Acetaminophen [Tylenol 325 mg Tablet] 325 mg PEG Q6HP PRN tablet 07/09/19 Amlodipine Besylate [Norvasc 10 mg Tablet] 10 mg PEG DAILY tablet 07/09/19 Apixaban [Eliquis 2.5 mg Tablet] 2.5 mg PO BID tablet 07/09/19 Aspirin [Aspirin 81 mg Chewable Tablet] 81 mg PEG DAILY tab.chew 07/09/19 Atenolol [Tenormin 50 mg Tablet] 50 mg PEG DAILY tablet 07/09/19 Bisacodyl [Dulcolax 10 mg Supp.rect] 10 mg TX DAILYP PRN supp.rect 07/09/19 Calcium Carbonate/Vitamin D3 [Os-Deyvi 250 mg with Vitamin D 125 Units] 1 tab PEG DAILY tablet 07/09/19 Escitalopram Oxalate [Lexapro 10 mg Tablet] 5 mg PEG DAILY tablet 07/09/19 Pantoprazole Sodium [Protonix IV Inj 40 mg Vial] 40 mg IV DAILY vial 07/09/19 Polyethylene Glycol 3350 [Miralax Powder 17 gm/Packet] 8.5 gm PEG BID powd.pack 07/09/19 Potassium Chloride [Potassium Chloride 20 Meq Packet] 20 meq PEG DAILY packet 07/09/19 Terazosin HCl 1 mg PEG DAILY 30 Days #30 capsule 07/09/19 Trazodone HCl [Desyrel 50 mg Tablet] 50 mg PEG Q12 tablet 07/09/19 History of Present Illness Admission Date/PCP: 06/24/2019 Patient complains of: The patient was found down at home. History of Present Illness: WILLIAMS COX is a 79 year old male with complex past medical history. He was found down at home. No one is sure how long he was down. He was brought to the emergency department. Initial evaluation revealed some contusions but while he was in the emergency room he deteriorated. He exhibited increasing confusion. A CT scan of the head was negative for stroke however an MRI showed a left internal capsule stroke. The patient was referred to the hospital service for admission. Hospital Course Hospital Course: See above for details. The hospitalization had issues with increasing dysphagia requiring gastrostomy tube. There was a period of inadequate fluids due to compromise swallow. The patient exhibited agitation. He did pull out his PEG tube. After multiple adjustments in medications as well as doses of IV fluids the patient is now comfortable. There is no agitation. He has a functioning gastrostomy tube. He in fact appears to be able to comprehend questions and in fact provided verbal answers to a few questions this morning. The patient is medically stable for transport to [facility]. He will need ongoing physical, occupational and speech and swallowing therapy. He will need billy toring for hematuria. Terazosin was started and the Mobley catheter should be removed in 2 to 3 days. At this point the family is wanting aggressive therapy and would like to see how the patient responds to therapeutic disciplines. Physical Exam Vital Signs: Temp Pulse Resp BP Pulse Ox 97.3 F 67 22 H 132/68 H 93 07/09/19 12:09 07/09/19 12:09 07/09/19 12:09 07/09/19 12:09 07/09/19 12:09 Intake & Output 07/08/19 07/09/19 07/10/19 06:59 06:59 06:59 Intake Total 3292 1142 250 Output Total 975 1575 225 Balance 2317 -433 25 Weight 88.3 kg 87.4 kg General appearance: PRESENT: no acute distress, cooperative - He did provide 2 or 3 verbal answers to questions albeit simple answers. Mostly yes and no., well-developed Head exam: PRESENT: atraumatic, normocephalic Eye exam: PRESENT: conjunctiva pink. ABSENT: scleral icterus Ear exam: PRESENT: normal external ear exam Respiratory exam: PRESENT: clear to auscultation gurpreet - Anteriorly, symmetrical, unlabored. ABSENT: rales, rhonchi, tachypnea, wheezes Cardiovascular exam: PRESENT: irregular rhythm GI/Abdominal exam: PRESENT: normal bowel sounds, soft, other - Gastrostomy tube in place secured with abdominal binder. ABSENT: distended, tenderness Rectal exam: PRESENT: deferred Gentrourinary exam: PRESENT: indwelling catheter Extremities exam: ABSENT: joint swelling, pedal edema Musculoskeletal exam: PRESENT: normal inspection Neurological exam: PRESENT: alert, awake, oriented to person - Responds to his name, oriented to situation - I firmly believe he is oriented to his current medical situation, aphasic Psychiatric exam: PRESENT: flat affect. ABSENT: agitated, anxious Results Laboratory Results: 07/09/19 04:12 07/09/19 04:12 07/09/19 07/09/19 04:12 04:12 WBC 9.7 RBC 3.76 L Hgb 9.2 L Hct 28.2 L MCV 75 L MCH 24.6 L MCHC 32.7 RDW 16.8 H Plt Count 321 Sodium 142.0 Potassium 3.6 Chloride 107 Carbon Dioxide 30 Anion Gap 5 BUN 17 Creatinine 0.87 Est GFR ( Amer) > 60 Est GFR (Non-Af Amer) > 60 Glucose 139 H Calcium 7.5 L Phosphorus 2.9 Magnesium 1.7 06/24/19 06/24/19 06/24/19 10:20 13:24 13:24 Creatine Kinase 174 H CK-MB (CK-2) 3.50 Troponin I 0.084 0.122 NT-Pro-B Natriuret Pep 06/24/19 06/24/19 06/25/19 18:50 18:50 00:58 Creatine Kinase 173 H 233 H CK-MB (CK-2) 3.63 Troponin I 0.122 NT-Pro-B Natriuret Pep 06/25/19 06/25/19 00:58 06:15 Creatine Kinase CK-MB (CK-2) 3.50 Troponin I 0.148 NT-Pro-B Natriuret Pep 7250 H Impressions: Head CTA 06/24/19 00:00 IMPRESSION: NO CTA EVIDENCE OF STENOSIS OR ANEURYSM OF THE [place]. Neck CTA 06/24/19 00:00 IMPRESSION: No evidence of carotid artery stenosis or dissection. Cervical Spine CT 06/24/19 10:07 IMPRESSION: CHRONIC DEGENERATIVE CHANGES. NO ACUTE FINDINGS. Head CT 06/24/19 10:07 IMPRESSION: CHRONIC CHANGES OF ATROPHY AND MICROVASCULAR ISCHEMIA. NO ACUTE TX OCESS. EVIDENCE OF ACUTE STROKE: NO. Forearm X-Ray 06/24/19 11:24 IMPRESSION: Possible nondisplaced fracture of the distal radius. Consider radiographs of the wrist. Head MRI 06/24/19 12:04 IMPRESSION: ATROPHY AND CHRONIC MICRO-VASCULAR ISCHEMIC CHANGES. Positive for restricted diffusion internal capsule on the left. Acute infarction. EVIDENCE OF ACUTE STROKE: YES. LEFT MCA. Wrist X-Ray 06/24/19 12:23 IMPRESSION: Degenerative arthritis of the right wrist. Modified Barium Swallow 06/28/19 00:00 IMPRESSION: ASPIRATION WITH THIN BARIUM. PLEASE SEE SPEECH PATHOLOGIST REPORT FOR OTHER FINDINGS AND RECOMMENDATIONS. Chest X-Ray 07/02/19 07:00 IMPRESSION: Cardiomegaly with mild pulmonary edema. Transfer Plan - Disposition Transfer Plan: The patient will transfer to [facility] for ongoing physical, occupational, speech and swallowing therapies. The Mobley catheter should be removed after 2 to 3 days of terazosin therapy to resolve any obstructive uropathy symptoms. - Time Spent with Patient Time spent with patient: Greater than 30 Minutes Qualifiers - * PATIENT BEING DISCHARGED WITH ANY OF THE FOLLOWING DIAGNOSIS: Stroke Stroke Pt being discharged on Anti-thrombolytic therapy?: Yes Stroke Pt being discharged on Anti-coagulation therapy?: Yes Stroke Pt being discharged on Statins?: Yes Acute Heart Failure - Is this a Heart Failure Patient?: No Plan Discharge Plan: As above Time Spent: Greater than 30 Minutes
== END 2019-07-09 16:00 | DRG 65 ==
LOC: ER 10:01 → EH 12:42 → 3S 16:03
PROVIDERS: ADMIT Internal Medicine; ATTEND Internal Medicine
PROC: 3E0234Z Introduction of Serum, Toxoid and Vaccine into Muscle, Percutaneous Approach (ICD-10-PCS; 2019-06-24)
PROC: 30233L1 Transfusion of Nonautologous Fresh Plasma into Peripheral Vein, Percutaneous Approach (ICD-10-PCS; 2019-06-30)
PROC: 0DH63UZ Insertion of Feeding Device into Stomach, Percutaneous Approach (ICD-10-PCS; principal; 2019-07-04 12:00)
PROC: 0D20XUZ Change Feeding Device in Upper Intestinal Tract, External Approach (ICD-10-PCS; 2019-07-06)
DX: I63.412 Cerebral infarction due to embolism of left middle cerebral artery (principal); G81.91 Hemiplegia, unspecified affecting right dominant side; N17.9 Acute kidney failure, unspecified; E87.0 Hyperosmolality and hypernatremia; R64 Cachexia; Z43.1 Encounter for attention to gastrostomy; R47.01 Aphasia; R13.10 Dysphagia, unspecified; S40.021A Contusion of right upper arm, initial encounter; W19.XXXA Unspecified fall, initial encounter; I10 Essential (primary) hypertension; I16.0 Hypertensive urgency; I48.0 Paroxysmal atrial fibrillation; N13.9 Obstructive and reflux uropathy, unspecified; E87.6 Hypokalemia; K59.00 Constipation, unspecified; R31.0 Gross hematuria; E83.51 Hypocalcemia; R29.810 Facial weakness; Z78.1 Physical restraint status; Z23 Encounter for immunization; Z79.01 Long term (current) use of anticoagulants; Z79.899 Other long term (current) drug therapy; Z79.82 Long term (current) use of aspirin
CPT/HCPCS: 00731; 00790; 36415; 36430; 43246; 70450; 70496; 70498; 70551; 71045; 72125; 74230; 80048; 80053; 80061; 80162; 81001; 82550; 82553; 82962; 83036; 83735; 83880; 84100; 84153; 84443; 84484; 85025; 85027; 85610; 85730; 86900; 86901; 87086; 90715; 93005; 93010; 99285; C1729; C1758; J0360; J0690; J0696; J1100; J1160; J1630; J1815; J2250; J2405; J2704; J2710; J3010; J3430; J3480; J3490; J7060; P9017; S0028; S0164